=== PATIENT | female | born 1955 | race Caucasian/White ===

== ENCOUNTER 2017-09-13 17:46 | Emergency (ER) | payer OTHER, SELFPAY ==
[2017-09-13 17:47] VITALS: BP 156/81; PULSE 76; RESP 18; TEMP 36.7; O2SAT 99; BMI 19.2
--- NOTE | 2017-09-13 18:01 | EKG12_ITS ---
Test Reason : Blood Pressure : / mmHG Vent. Rate : 075 BPM Atrial Rate : 075 BPM P-R Int : 162 ms QRS Dur : 078 ms QT Int : 386 ms P-R-T Axes : 019 024 044 degrees QTc Int : 431 ms Normal sinus rhythm Normal ECG Confirmed by ADRIAN JACINTO MD ([id number]), manuscript editor JAIME DAVIS ([id number]) on 09/16/2017 3:09:37 PM Referred By: KASEY Confirmed By:ADRIAN JACINTO MD
--- NOTE | 2017-09-13 18:01 | CT_ITS ---
STUDY: CT ABDOMEN AND PELVIS WITH CONTRAST REASON FOR EXAM: Female, 62 years old. Abdominal pain and recent urinary bladder infection. Patient has had a hysterectomy. RADIATION DOSAGE (If Supplied By Facility): CTDIvol = ( 8.71 ) mGy, DLP = ( 523.17 ) mGycm TECHNIQUE: Transaxial images were obtained from the dome of the diaphragm to the symphysis pubis with oral contrast. 100 ml of Isovue 300 contrast was administered. Sagittal and coronal images were reconstructed. Individualized dose optimization techniques were used for this CT. COMPARISON: CT of the abdomen and pelvis dated April 11, 2016 FINDINGS: There is a subpleural nodule in the left lower lobe, unchanged since the previous study. This measures approximately 10 mm in greatest dimension. The visualized portions of the heart are within normal limits. Normal liver. Normal gallbladder and extrahepatic biliary system. Normal spleen. Normal pancreas. Normal bilateral adrenal glands. Normal right kidney. Normal left kidney. There is mild prominence of the renal collecting systems Normal visualized stomach. There is no evidence for dilated bowel, ascites or pneumoperitoneum. Small bowel has a grossly normal appearance. Stool is visible throughout the colon with scattered colonic diverticula. There is non-visualization of the appendix. Abdominal aorta is mildly tortuous. Normal inferior vena cava. Normal retroperitoneum. Normal urinary bladder. There is absence of the uterus consistent with a prior hysterectomy. There is a small umbilical hernia containing fat. The bones appear osteopenic. There is degenerative disc disease at L5-S1. CT/Abdomen/Pelvis WITH Contrast IMPRESSION: No CT evidence of acute intra-abdominal disease. Electronically Signed: Estela San MD at 20:57 EDT , Service support ,
--- NOTE | 2017-09-13 18:02 | ED.VISSUMM ---
- ER Visit Summary Date of Service: 09/13/17 Chief Complaint: Abdominal pain History of Present Illness: The patient is a 62 F presenting with abdominal pain and dysuria. She states this has been ongoing for the past 1-1/2 weeks. She was seen by her primary care physician Dr. Benitez and started on Cipro for a bladder infection. She states the pain seems to be worsening. She has pain after she urinates and urinary frequency. She has chronic low back pain. She has diffuse abdominal pain. History of hysterectomy. Physical Examination: Vitals are stable. Patient is afebrile. Alert no acute distress. HEENT exam is unremarkable. Neck is supple. Lungs are clear and equal bilaterally. Heart is regular rate and rhythm. Abdomen is soft epigastric tenderness, no rebound Extremities are unremarkable. Skin is warm and dry. No focal neurologic deficit. Remainder of exam is unremarkable. Emergency Department Course and Treatment: Patient is given morphine, Zofran IV. CBC, chemistries unremarkable. Liver lipase are normal. Urinalysis is unremarkable. EKG is sinus rate is 75 with no acute ischemic changes. Patient is feeling improved following medications. CT abdomen pelvis shows no acute process, nonvisualization of the appendix. Patient states she has had CT scans in the past that have shown nonvisualization of her appendix. She has no right lower quadrant tenderness on exam. She is advised to watch for worsening signs and symptoms and to return to ED if she worsens. She will follow-up with her primary care physician. She is given a prescription for Pepcid. Disposition: Discharge home Impression: Abdominal pain This note was generated with [employer] dictation software. It may contain incorrect words, spelling, and punctuation that were not noted in review of the chart prior to signing ED Disposition - Plan for ED Patient: Chief Complaint: Complaint Referrals: Anaid Benitez DO [Primary Care Provider] -
--- NOTE | 2017-09-13 18:05 | NURSING ---
NO OLD EKGS
[2017-09-13 18:34] LABS: Bacteria 0 SEEN /hpf (None Seen); Mucous, Urine 0 SEEN /hpf (<or=2+); Red Blood Cells-Urine 0 SEEN /hpf (0-5)
[2017-09-13 18:43] LABS: Color, Urine Straw (Yellow); Glucose, Dipstick Normal (Normal); Ketone-Dipstick Negative (Negative); Leukocyte Esterase-Dipstick 25 /ul (Negative); Nitrite-Dipstick Negative (Negative); Occult Blood-Urine Negative /ul (Negative); Protein-Dipstick Negative (Negative); Urine Bilirubin Dipstick Negative (Negative); Urine Clarity Clear (Clear); Urine Urobilinogen Normal (Normal)
[2017-09-13 18:55] LABS: AST(SGOT) 15 U/L (15-37); Alanine Aminotransfer ALT/SGPT 15 U/L (13-56); Alkaline Phosphatase 60 U/L (45-117); Anion Gap 8 (5-15); BUN 17 mg/dL (7-18); BUN/Creat Ratio 22.1 RATIO (10-20); Bilirubin, Direct 0.08 mg/dL (0.00-0.30); Calcium,Total 8.7 mg/dL (8.5-10.1); Chloride 105 mmol/L (98-107); Creatinine, Serum 0.77 mg/dL (0.55-1.02); EST Glomerular Filtration Rate 80 mL/min (>60); Est Glom Filt Rate - Afr Amer 97 mL/min (>60); Estimated Creatinine Clearance 63.72 ml/min; Globulin 3.1 g/dL (2.2-4.2); Glucose 104 mg/dL (74-106); Lipase 146 U/L (73-393); Protein, Total 7.1 g/dL (6.4-8.2); Sodium Level 141 mmol/L (136-145)
[2017-09-13 18:58] LABS: Squamous Epithelial Cells - UA 0-5 SEEN /hpf (5-10); White Blood Cells 0-5 SEEN /hpf (0-5)
[2017-09-13 19:03] LABS: Absolute Lymphocyte Count 2.16 X10^3/ul (0.83-4.51); Absolute Neutrophil Count 4.8 X10^3/uL (2.0-7.7); Basophil# 0.01 X10^3/uL; Basophil% 0.1 % (0-1); Eosinophil# 0.06 X10^3/uL; Eosinophils% 0.8 % (0-5); Hematocrit 37.8 % (37-47); Hemoglobin 12.4 g/dl (12.0-15.0); Lymphocyte # 2.16 X10^3/ul (4.0); Lymphocyte % 28.3 % (19-41); Mean Corp Hgb Conc 32.8 g/gl (32-36); Mean Corpuscular Hgb 31.6 pg (27.0-32.0); Mean Corpuscular Volume 96.2 fL (81-99); Monocyte# 0.63 X10^3/uL; Monocyte% 8.3 % (0-10); Neutrophil # 4.77 X10^3/uL (2.7-7.7); Neutrophil % 62.5 % (47-70); Platelet Count 165 K/mm3 (150-450); RBC Distribution Width CV 11.9 % (11.6-14.6); RBC Distribution Width SD 42.1 fl (35.1-43.9); Red Blood Count 3.93 M/mm3 (4.2-5.4); White Blood Count 7.6 K/mm3 (4.4-11.0)
[2017-09-13 19:08] LABS: POSITIVE COUNT NO; POSITIVE DIFFERENTIAL NO; POSITIVE MORPHOLOGY NO
[2017-09-13 20:00] VITALS: BP 144/78; PULSE 75; RESP 14; O2SAT 99
--- NOTE | 2017-09-13 21:37 | ED.DEP ---
ED Disposition - Plan for ED Patient: Chief Complaint: Complaint Instructions: ED Abdominal Pain Unkn Cause Prescriptions: Famotidine [Pepcid] 20 mg PO BID #28 tablet Referrals: Anaid Benitez DO [Primary Care Provider] -
[2017-09-13 21:49] VITALS: RESP 14
== END 2017-09-13 21:49 | disposition home or self-care (01) ==
LOC: ED 18:15
PROVIDERS: Emergency Provider Emergency Medicine; Family Provider Internal Medicine; PCP Internal Medicine
DX: R10.9 Unspecified abdominal pain (principal); G89.29 Other chronic pain; M54.5 Low back pain; R30.0 Dysuria; R35.0 Frequency of micturition; Z90.710 Acquired absence of both cervix and uterus
CPT/HCPCS: 74177; 80048; 80076; 81001; 83690; 85025; 93005; 99283; J7040; Q9967; A4216; J2405

== ENCOUNTER → 2018-08-04 09:21 | Outpatient (CLI) | payer OTHER, SELFPAY ==
[2018-08-04 08:42] VITALS: BMI 19.2
[2018-08-06 20:19] LABS: B. henselae IgG Negative titer (Neg:<1:320); B. henselae IgM Negative titer (Neg:<1:100); B. quintana IgG Negative titer (Neg:<1:320)
[2018-08-07 16:55] LABS: B. quintana IgM Negative titer (Neg:<1:100)
== END ==
PROVIDERS: Family Provider Internal Medicine; PCP Internal Medicine; Referring Provider Surgery; Visit Provider Surgery
DX: R59.0 Localized enlarged lymph nodes (principal)
CPT/HCPCS: 36415; 86611

== ENCOUNTER → 2018-08-05 14:57 | Outpatient (CLI) | payer OTHER, SELFPAY ==
[2018-08-04 08:42] VITALS: BMI 19.2
--- NOTE | 2018-08-05 15:01 | US_ITS ---
HISTORY: LUMP ON ANT UPPER RT ARM AND ENLARGED NODE IN AXILLA EXAM/TECHNIQUE: US Upper Extremity, limited, joint or other nonvascular extremity: COMPARISON: None. FINDINGS: # of images incl. paperwork: 35 4 prominent lymph nodes correspond to the palpable abnormalities. A right upper arm lymph node measures 1.2 x 1.3 x 1.0 cm. 3 axillary lymph nodes were measured, 2.1 x 1.5 x 1.1 and 1.9 x 0.7 x 0.9 and 3.4 x 1.3 x 0.9 cm. No lymph node necrosis was evident. The lymph nodes maintain their reniform shape. US/Ext Non Vasc Limited/Soft Tiss IMPRESSION: The palpable abnormalities correspond to mildly prominent lymph nodes. No necrosis. at 0221 Reported and signed by: Castillo Jama MD Electronically Signed: Castillo Jama, at 2:20 EST Tel , Service support ,
== END ==
PROVIDERS: Family Provider Internal Medicine; PCP Internal Medicine; Referring Provider Surgery; Visit Provider Surgery
DX: R59.0 Localized enlarged lymph nodes (principal)
CPT/HCPCS: 76882

== ENCOUNTER → 2018-08-20 11:02 | Outpatient (CLI) | payer OTHER, SELFPAY ==
--- NOTE | 2018-08-20 09:15 | MASS_PTH ---
PATIENT: DUSTIN TRACY LOC: [facility] U#:[id number] AGE/SX: 70/F ROOM: RE08/20/[address]: Dr. Leon Ricardo MD : 1955 BED: DIS: SPEC #: [id number] RECD: 08/20/18 11:00 STATUS: CLOVER SANTI #: [id number] YAIMA: 08/20/18 09:[address]: Leon Ricardo DEPT: SURGICAL PATHOLOGY RECD BY: Adrian Nagel ENTERED: 08/20/18 12:21 SP TYPE: Mass OTHR DR: Dr. Anaid Benitez DO Tissues: Right arm (tissue only) Procedures: Special Stain Group I Surgery Specimen Level IV AFB Stain (control) GMS Stain (control) HEADER OPERATION: Right arm biopsy PRE-OP DIAGNOSIS: Right arm mass TISSUE SUBMITTED: Right arm tissue MICROSCOPIC DIAGNOSIS Right arm tissue, core biopsy: Fragments of fibroadipose and fibroconnective tissue with focal fat necrosis, acute and chronic inflammation, granulation tissue reaction and focal area suggestive of granuloma formation. Negative for malignancy. Special stains for acid fast bacilli and fungi are negative for organisms; matched controls are appropriate. RUBEN:vicki 08/21/18 COMMENT Correlation with clinical findings and appropriate follow up are necessary. Case has been reviewed in consultation with Dr. Sewell who concurs with the above diagnosis. IDC:AM MICROSCOPIC DESCRIPTION Slides are reviewed. GROSS DESCRIPTION Received in fixative is one container labeled with the patient's name and designated right arm mass. The specimen consists of two elongated fragments of rosado soft tissue that in aggregate measure 0.4 x 0.2 x 0.1 cm. The specimen is totally submitted in one cassette. / RUBEN:vicki 08/20/18 TC:3 CPT: 76377, [id number] x2
[2018-08-20 09:28] VITALS: BMI 19.2
== END ==
PROVIDERS: Family Provider Internal Medicine; PCP Internal Medicine; Referring Provider Surgery; Visit Provider Surgery
DX: R22.31 Localized swelling, mass and lump, right upper limb (principal)
CPT/HCPCS: 87070; 87075; 87205; 88305; 88312

== ENCOUNTER → 2018-08-27 10:27 | Outpatient (CLI) | payer OTHER, SELFPAY ==
[2018-08-20 15:06] VITALS: BMI 19.2
--- NOTE | 2018-08-27 10:30 | BI_ITS ---
MAMMOGRAPHY - BILATERAL SCREENING REASON FOR EXAM: Female, 63 years old. Routine annual screening examination. PERTINENT HISTORY: Non-contributory. TECHNIQUE: Digital bilateral breast liya (3D mammographic acquisition) in the CC and MLO projections. 2-D mediolateral oblique (MLO) and craniocaudad (CC) views of both breasts were obtained. CAD: Full Field Digital Mammography with Computer Added Detection was performed. COMPARISON: Comparison is made with the prior examination dated January 06, 2013. FINDINGS: Breast Composition: The breasts are heterogeneously dense, which may obscure small masses. There are no dominant masses or suspicious calcifications. There is a 4.9 mm x 4.4 mm well-defined nodule in the deep mid slightly lateral aspect of the right breast. Correlation with ultrasound is recommended. No other significant abnormalities are identified. BI/SCREENING MAMM (CAD), BILAT IMPRESSION: 4.9 mm x 4.4 mm well-defined nodule in the right breast as described. Correlation with ultrasound is recommended. ASSESSMENT CATEGORY: BIRADS Category 0: Incomplete. Need additional imaging evaluation. A letter regarding these results will be sent to the patient by the facility within 30 days. Approximately 10% of breast cancers are not detected by mammography. A normal mammogram should not delay biopsy of a clinically suspicious abnormality. [id number] Electronically Signed: Kurt Joy, at 12:50 EST , Service support ,
== END ==
PROVIDERS: Family Provider Internal Medicine; PCP Internal Medicine; Referring Provider Nurse Practitioner; Visit Provider Nurse Practitioner
DX: Z12.31 Encounter for screening mammogram for malignant neoplasm of breast (principal)
CPT/HCPCS: 77063; 77067

== ENCOUNTER → 2018-08-28 10:26 | Outpatient (CLI) | payer OTHER, SELFPAY ==
[2018-08-20 15:06] VITALS: BMI 19.2
--- NOTE | 2018-08-28 10:30 | US_ITS ---
STUDY: ULTRASOUND BREAST - RIGHT REASON FOR EXAM: Female, 63 years old. Abnormal screening mammogram. TECHNIQUE: Axial and longitudinal images of the RIGHT breast were performed with a high resolution ultrasound transducer. COMPARISON: Comparison is made with prior mammogram dated August 27, 2018. FINDINGS: RIGHT Breast: The mammographic abnormality corresponds to a 4 mm x 4 mm x 1 mm cyst at the 8:00 position of the breast at 2 cm from the nipple. US/Breast Limited Unilateral IMPRESSION: 4 mm x 4 mm x 1 mm cyst at the 8:00 position of the breast at 2 cm from the nipple. ASSESSMENT CATEGORY: BIRADS Category 2: Benign. A letter regarding these results will be sent to the patient by the facility within 30 days. Electronically Signed: Kurt Joy, at 15:38 EST , Service support ,
== END ==
PROVIDERS: Family Provider Internal Medicine; PCP Internal Medicine; Referring Provider Nurse Practitioner; Visit Provider Nurse Practitioner
DX: R92.8 Other abnormal and inconclusive findings on diagnostic imaging of breast (principal)
CPT/HCPCS: 76642

== ENCOUNTER → 2021-12-10 | Outpatient (CLI) | payer MEDICARE, OTHER, SELFPAY | END | disposition home or self-care (01) | LOC: MFPLAB 14:18 | PROVIDERS: PCP Internal Medicine; Visit Provider Family Medicine | DX: N39.0 Urinary tract infection, site not specified (principal) | CPT/HCPCS: 87086; 87088 ==

== ENCOUNTER → 2022-06-12 | Outpatient (CLI) | payer MEDICARE, OTHER, SELFPAY ==
--- NOTE | 2022-06-12 15:33 | BI_ITS ---
MAMMOGRAPHY - BILATERAL SCREENING REASON FOR EXAM: Female, 67 years old. Routine annual screening examination. PERTINENT HISTORY: Non-contributory. TECHNIQUE: Digital bilateral breast carson (3D mammographic acquisition) in the CC and MLO projections. 2-D mediolateral oblique (MLO) and craniocaudad (CC) views of both breasts were obtained. CAD: Full Field Digital Mammography with Computer Added Detection was performed. COMPARISON: Comparison is made with prior study dated 08/27/2018 and 01/06/2013. FINDINGS: Breast Composition: The breasts are heterogeneously dense, which may obscure small masses. There are no dominant masses or suspicious calcifications. Stable 5 mm well-defined nodule in the deep central slightly lateral aspect of the right breast. This most likely represents a small lymph node. No other significant abnormalities are identified. There has been no significant change since the prior study. BI/SCRN MAMM (CAD)W/CARSON BILAT IMPRESSION: Stable bilateral screening mammogram. Yearly follow-up mammogram recommended. (A) ASSESSMENT CATEGORY: BIRADS Category 2: Benign. A letter regarding these results will be sent to the patient by the facility within 30 days. Approximately 10% of breast cancers are not detected by mammography. A normal mammogram should not delay biopsy of a clinically suspicious abnormality. [id number] Electronically Signed: Kurt Joy MD at 8:18 EST ,
== END | disposition home or self-care (01) ==
LOC: OPBI 15:30
PROVIDERS: PCP Internal Medicine; Referring Provider Family Medicine; Visit Provider Family Medicine
DX: Z12.31 Encounter for screening mammogram for malignant neoplasm of breast (principal); N63.10 Unspecified lump in the right breast, unspecified quadrant
CPT/HCPCS: 77063; 77067

== ENCOUNTER → 2022-06-25 | Outpatient (CLI) | payer MEDICARE, OTHER, SELFPAY ==
[2022-06-25 15:08] LABS: Hemoglobin 12.9 g/dL (12.0-15.0); Mean Corp Hgb Conc 33.1 g/dL (32-36); Mean Corpuscular Hgb 32.4 pg (27.0-32.0); Mean Platelet Vol. 10.5 fl (6.2-12.0); Platelet Count 174 K/mm3 (150-450); RBC Distribution Width SD 43.6 fl (35.1-43.9); Red Blood Count 3.98 M/mm3 (4.2-5.4); White Blood Count 6.2 K/mm3 (4.4-11.0)
[2022-06-25 15:22] LABS: Anion Gap 6 (5-15); BUN 18 mg/dL (7-18); BUN/Creat Ratio 23.4 RATIO (10-20); Calcium,Total 9.2 mg/dL (8.5-10.1); Chloride 105 mmol/L (98-107); Creatinine, Serum 0.77 mg/dL (0.55-1.02); EST Glomerular Filtration Rate 79 mL/min (>60); Est Glom Filt Rate - Afr Amer 96 mL/min (>60); Glucose 101 mg/dL (74-106); Potassium 3.9 mmol/L (3.5-5.1); Sodium Level 140 mmol/L (136-145)
== END | disposition home or self-care (01) ==
LOC: MFPLAB 12:01
PROVIDERS: PCP Internal Medicine; Visit Provider Nurse Practitioner Family
DX: Z00.00 Encounter for general adult medical examination without abnormal findings (principal); R30.0 Dysuria
CPT/HCPCS: 36415; 80048; 85027; 87086; 87088

== ENCOUNTER → 2023-04-09 | Outpatient (CLI) | payer MEDICARE, OTHER, SELFPAY | END | disposition home or self-care (01) | LOC: LABSPEC 10:21 | PROVIDERS: PCP Internal Medicine; Referring Provider Nurse Practitioner Family; Visit Provider Nurse Practitioner Family | DX: R39.15 Urgency of urination (principal) | CPT/HCPCS: 87086 ==

== ENCOUNTER → 2023-04-22 | Outpatient (CLI) | payer MEDICARE, OTHER, SELFPAY ==
[2023-04-22 15:56] LABS: Absolute Lymphocyte Count 1.37 X10^3/uL (0.83-4.51); Absolute Neutrophil Count 4.8 X10^3/uL (2.0-7.7); Basophil# 0.03 X10^3/uL; Basophil% 0.4 % (0-1); Eosinophil# 0.04 X10^3/uL; Eosinophils% 0.6 % (0-5); Hematocrit 38.5 % (37-47); Hemoglobin 12.4 g/dL (12.0-15.0); Lymphocyte # 1.37 X10^3/ul (0.83-4.51); Lymphocyte % 20.5 % (19-41); Mean Corp Hgb Conc 32.2 g/dL (32-36); Mean Corpuscular Volume 96.3 fL (81-99); Mean Platelet Vol. 10.9 fl (6.2-12.0); Monocyte# 0.46 X10^3/uL; Monocyte% 6.9 % (0-10); NRBC Flagged by Analyzer 0 % (0-5); Neutrophil # 4.76 X10^3/uL (2.7-7.7); Neutrophil % 71.5 % (47-70); Platelet Count 190 K/mm3 (150-450); RBC Distribution Width CV 11.2 % (11.6-14.6); RBC Distribution Width SD 39.7 fl (35.1-43.9); White Blood Count 6.7 K/mm3 (4.4-11.0)
[2023-04-22 16:30] LABS: ALB/GLOB Ratio 1.2 RATIO (0.9-2.4); AST(SGOT) 17 U/L (15-37); Alanine Aminotransfer ALT/SGPT 16 U/L (13-56); Albumin, Serum 4.1 g/dL (3.2-5.0); Alkaline Phosphatase 58 U/L (45-117); Amylase 91 U/L (25-115); Anion Gap 5 (5-15); BUN 15 mg/dL (7-18); BUN/Creat Ratio 17.5 RATIO (10-20); CRP < 2.90 mg/L (0.0-3.0); Calcium,Total 9.3 mg/dL (8.5-10.1); Chloride 107 mmol/L (98-107); Creatinine, Serum 0.86 mg/dL (0.55-1.02); EST Glomerular Filtration Rate 70 mL/min (>60); Est Glom Filt Rate - Afr Amer 84 mL/min (>60); GGTP 15 U/L (5-55); Globulin 3.5 g/dL (2.2-4.2); Glucose 108 mg/dL (74-106); Lipase 50 U/L (13-75); Potassium 3.6 mmol/L (3.5-5.1); Protein, Total 7.6 g/dL (6.4-8.2); Sodium Level 141 mmol/L (136-145)
[2023-04-24 16:09] LABS: Anti-Smooth Muscle ABS 4 Units (0-19)
== END | disposition home or self-care (01) ==
LOC: MTLAB 12:47
PROVIDERS: PCP Family Medicine; Referring Provider Family Medicine; Visit Provider Family Medicine
DX: R10.11 Right upper quadrant pain (principal); R74.8 Abnormal levels of other serum enzymes
CPT/HCPCS: 36415; 80053; 82150; 82977; 83516; 83690; 85025; 86140

== ENCOUNTER → 2023-05-09 | Outpatient (CLI) | payer MEDICARE, OTHER, SELFPAY ==
[2023-05-09 15:19] LABS: Absolute Lymphocyte Count 1.15 X10^3/uL (0.83-4.51); Absolute Neutrophil Count 4.4 X10^3/uL (2.0-7.7); Basophil# 0.03 X10^3/uL; Basophil% 0.5 % (0-1); Eosinophil# 0.04 X10^3/uL; Eosinophils% 0.7 % (0-5); Hematocrit 38.7 % (37-47); Hemoglobin 12.4 g/dL (12.0-15.0); Lymphocyte # 1.15 X10^3/ul (0.83-4.51); Lymphocyte % 19.2 % (19-41); Mean Corpuscular Hgb 30.9 pg (27.0-32.0); Mean Corpuscular Volume 96.5 fL (81-99); Mean Platelet Vol. 10.8 fl (6.2-12.0); Monocyte# 0.37 X10^3/uL; Monocyte% 6.2 % (0-10); NRBC Flagged by Analyzer 0 % (0-5); Neutrophil # 4.39 X10^3/uL (2.7-7.7); Neutrophil % 73.2 % (47-70); Platelet Count 169 K/mm3 (150-450); RBC Distribution Width CV 11.4 % (11.6-14.6); RBC Distribution Width SD 40.7 fl (35.1-43.9); Red Blood Count 4.01 M/mm3 (4.2-5.4)
[2023-05-09 15:43] LABS: Amylase 84 U/L (25-115); CRP < 2.90 mg/L (0.0-3.0); Lipase 36 U/L (13-75)
[2023-05-12 15:08] LABS: Endomysial Antibody IgA Negative (Negative); Immunoglobulin A 195 mg/dL (87-352); t-Transglutaminase IgA <2 U/mL (0-3)
== END | disposition home or self-care (01) ==
LOC: MFPLAB 12:08
PROVIDERS: PCP Family Medicine; Visit Provider Family Medicine
DX: R19.7 Diarrhea, unspecified (principal)
CPT/HCPCS: 36415; 82150; 82784; 83516; 83690; 85025; 86140; 86255

== ENCOUNTER → 2023-05-13 | Outpatient (CLI) | payer MEDICARE, OTHER, SELFPAY ==
--- NOTE | 2023-05-13 09:47 | NM_ITS ---
CLINICAL: 68-year-old male with history of right upper quadrant abdominal pain. RADIONUCLIDE HEPATOBILIARY SCINTIGRAPHY COMPARISON: None available FINDINGS: Following the intravenous administration of 5.5 mCi of 99m Tc Mebrofenin, hepatobiliary images reveal: 1. Relatively prompt and homogeneous radiopharmaceutical concentration is noted by a normal sized liver. No parenchymal defects are identified. 2. Gallbladder activity is identified at 10 minutes post radiopharmaceutical administration. 3. Small intestinal tract is observed at 45 minutes following tracer injection. 4. Washout of the radiopharmaceutical by the hepatic parenchyma appears qualitatively normal. 5. There is scintigraphic evidence of pre-CCK duodenal gastric reflux on the 45 minute projection. Cholecystokinin (0.02 ug/kg) was administered intravenously over a 30-minute period. The post CCK gallbladder ejection fraction calculated at 20 minutes following Cholecystokinin administration was noted to be 36.0 % (normal greater than 35%). During 30 minutes of post CCK imaging, there is no scintigraphic evidence of reflux of the radiotracer into the common hepatic duct or refilling of the gallbladder. There is scintigraphic evidence of continued post CCK duodenal gastric reflux. NM/Hepatobilliary Img w/Pharm Int IMPRESSION: 1. A gallbladder ejection fraction calculated to be greater than 35% following the administration of Cholecystokinin makes the probability of functional hepatobiliary disease (gallbladder and/or sphincter of Oddi dyskinesia) and/or organic hepatobiliary disease (chronic acalculous cholecystitis and/or cystic duct syndrome) to be low. (Yahaira Bailey et al, Journal of Nuclear Medicine 32:1695, 1990). 2. There is scintigraphic evidence of pre-post CCK duodenal-gastric reflux. (Tashi et al, Nucl Med Samantha Carli Press pg. 35, 1980). Electronically Signed: Tremayne Liang DO at 22:27 EST ,
== END | disposition home or self-care (01) ==
LOC: NM 09:46
PROVIDERS: PCP Family Medicine; Referring Provider Family Medicine; Visit Provider Family Medicine
DX: R10.11 Right upper quadrant pain (principal)
CPT/HCPCS: 78227; A9537; J2805

== ENCOUNTER → 2023-05-15 | Outpatient (CLI) | payer MEDICARE, OTHER, SELFPAY ==
[2023-05-22 22:06] LABS: Fats, Neutral Normal (.); Fats, Total Normal (.)
[2023-05-27 15:08] LABS: H. PYLORI STOOL AG Negative (Negative); Pancreatic Elastase, Fecal 406 (>200)
== END | disposition home or self-care (01) ==
LOC: LAB.FUTURE 09:20 → LABSPEC 09:20
PROVIDERS: PCP Family Medicine; Visit Provider Family Medicine
DX: R19.7 Diarrhea, unspecified (principal); R10.13 Epigastric pain
CPT/HCPCS: 82653; 82705; 87338

== ENCOUNTER → 2024-10-20 | Outpatient (CLI) | payer MEDICARE, OTHER, SELFPAY ==
--- OUTSIDE RECORDS SUMMARY | 2025-05-11 16:54 | XMS RPT_ITS | CCD ---
Author Organization [facility] CliniSyla Care Team Providers Care Browning Processor Name Role Phone Hollis Choi Unavailable Marycruz Waller Unavailable Sp Resendiz Unavailable Hilary Nascimento Unavailable Fast, Anaid A Unavailable Drew Tapia Unavailable Unavailable delmar Sloan Unavailable Unavailable Franca Fofana Unavailable Unavailable Diane Elder Unavailable Unavailable Unavailable Unavailable HILARY NASCIMENTO Attending Unavailable MARYCRUZ WALLER (FIRE PREVENTION CHIEF) Referring Unavailable Zumbar, Serge Admitting Unavailable Zumbar, Serge Attending Unavailable Fast, Anaid A Primary Care Unavailable Zumbar, Serge Admitting Unavailable Zumbar, Serge Attending Unavailable Fast, Anaid A Primary Care Unavailable Zumbar, Serge Admitting Unavailable Zumbar, Serge Attending Unavailable Fast, Anaid A Primary Care Unavailable Zumbar, Serge Admitting Unavailable Zumbar, Serge Attending Unavailable Fast, Anaid A Primary Care Unavailable Fast, Anaid A Unavailable Unavailable Unavailable Hollis Choi MD Unavailable Marycruz Waller CNP Unavailable Dr. Sp Resendiz Unavailable Hilary Nascimento MD Unavailable Fast DO, Anaid A Unavailable Drew Gutierrez LPN Unavailable Unavailable Unavailable Unavailable Marycruz Waller Unavailable Unavailable Marycruz Waller Unavailable Fast DO, Anaid A Unavailable Dr. Serge Bowie Attending Unavailable Fast, Dr. Anaid Paz Primary Care Unavailable Emmaunel, Dr. Anaid Paz Primary Care Unavailable Dr. Serge Bowie Attending Unavailable Jeromy Tapia Unavailable FABIEN FERNANDEZ Attending Unava ilable JEROMY TAPIA Primary Care Unavailable Willie PURDY, Dr. Montemayor Primary Care Provider [place] FIRE PREVENTION CHIEF-C, Oliver Attending Provider [place] FIRE PREVENTION CHIEF-C, Oliver Referring Provider Mc[facility]orrow FIRE PREVENTION CHIEF, Oliver Referring Unavailable Jeromy Tapia Primary Care Unavailable [place]orrow FIRE PREVENTION CHIEF, Oliver Attending Unavailable McMorrow FIRE PREVENTION CHIEF, Oliver Referring Unavailable Jeromy Tapia Primary Care Unavailable McMorrow FIRE PREVENTION CHIEF, Oliver Attending Unavailable Allergies Allergy Classification Reported Allergen(s) Allergy Type Date of Onset Reaction(s) Facility Penicillins (antibiotic) (2 sources) Penicillins; Translations: [Penicillins] Drug Allergy [facility] Work Phone: Quinolones (antibiotic) (2 sources) Ciprofloxacin; Translations: [ciprofloxacin] Drug Allergy [facility] Work Phone: (20 sources) Penicillins; Translations: [Penicillins] allergy to substance 07-05-19 17 Other [facility] Work Phone: Comment on above: YEAST INFECTIONS (17 sources) Ciprofloxacin; Translations: [ciprofloxacin] Drug Allergy 08-27-19 19 Unknown [facility] (9 sources) Sulfamethoxazole / Trimethoprim; Translations: [Bactrim] Drug Allergy [facility] Work Phone: (7 sources) Penicillin G Drug Allergy 08-27-19 19 Unknown [facility] (1 source) Ciprofloxacin; Translations: [CIPROFLOXACIN HCL] Drug Allergy 04-15-[address] [facility] (1 source) Sulfamethoxazole / Trimethoprim; Translations: [SULFAMETHOXAZOLE-T RIMETHOPRIM] Drug Allergy 04-15-[address] [facility] (1 source) Ciprofloxacin Drug Allergy 08-27-19 19 [facility] (1 source) Penicillin Drug Allergy 08-27-19 19 [facility] Medications Current Medications Medication Drug Class(es) Dates Sig (Normalized) Sig (Original) acetaminophen 325 mg oral tablet (15 sources) Start: 08-04-2018 take 1 tablet by mouth every six hours as needed Acetaminophen (Tylenol) 325 mg tablet Active 325 mg PO EVERY 6 HOURS as needed August 04, 2018 1:00am Acetaminophen 32 5 MG Oral Tablet Quantity: 0 Refills: 0 Ordered: 20-Nov-2020 DO Active Completed/Discontinued Medications Medication Drug Class(es) Dates Sig (Normalized) Sig (Original) acetaminophen 250 mg / ibuprofen 125 mg oral tablet (4 sources) Nonsteroidal Anti-inflammatory Drug Advil Dual Action 125-250 MG Oral Tablet Quantity: 0 Refills: 0 Ordered: 06-Aug-2022 DO Active acyclovir 800 mg oral tablet (5 sources) Herpesvirus Nucleoside Analog DNA Polymerase Inhibitor, Herpes Simplex Virus Nucleoside Analog DNA Polymerase Inhibitor, Herpes Zoster Virus Nucleoside Analog DNA Polymerase Inhibitor Start: 03-02-2010 End: 03-05-2010 take 1 tablet by mouth five times daily ACYCLOVIR, 800MG (Oral Tablet) 1 (one) Tablet 5 times daily for 3 days Refills: 0 Ordered: 02-Mar-2010 Kayley Gomez MD Start : 02-Mar-2010 End : 05-Mar-2010 Inactive azithromycin 250 mg oral tablet (7 sources) Macrolide Antimicrobial Start: 08-04-2018 End: 08-20-2018 take 2-5 tablets by mouth once daily Azithromycin (Zithromax Z-Bib) 250 mg tablet Discontinued 0 PO .COMPLEX 6 August 04, 2018 1:00am August 20, 2018 10:37am take 500 mg today (day 1), then 250 mg for 4 days (days 2-5) PO celecoxib 100 mg oral capsule (1 source) Nonsteroidal Anti-inflammatory Drug Start: 09-17-2022 take 1 capsule by mouth twice daily as needed Celecoxib 100 MG Oral Capsule TAKE 1 CAPSULE TWICE DAILY NEEDED. Quantity: 180 Refills: 0 Ordered: 17-Sep-2022 Serge Bowie MD Start : 17-Sep-2022 Active ciprofloxacin 500 mg oral tablet (12 sources) Quinolone Antimicrobial Start: 06-15-2021 End: 06-20-2021 take 1 tablet by mouth twice daily Ciprofloxacin HCl 500 MG Oral Tablet 1 (one) Tablet bid for 5 days Quantity: 10 {Tablet} Refills: 0 Ordered: 15-Jun-2021 Marycruz Waller Start : 15-Jun-2021 End : 20-Jun-2021 Inactive Start: 09-04-2017 End: 09-11-2017 take 1 tablet by mouth twice daily Cipro 500 MG Oral Tablet 1 (one) Tablet PO BID for 7 days Quantity: 14 {Tablet} Refills: 0 Ordered: 04-Sep-2017 Franca Fofana Start : 04-Sep-2017 End : 11-Sep-2017 Inactive Start: 10-05-2009 End: 10-12-2009 take 1 tablet by mouth twice daily CIPRO, 250MG (Oral Tablet) 1 (one) Tablet bid for 7 days Quantity: 14 {Tablet} Refills: 0 Ordered: 05-Oct-2009 Marycruz Waller Start : 05-Oct-2009 End : 12-Oct-2009 Inactive famotidine 20 mg oral tablet (7 sources) Histamine-2 Receptor Antagonist Start: 09-13-2017 End: 08-04-2018 take 1 tablet by mouth twice daily Famotidine 20 MG tablet Discontinued 20 mg PO TWICE A DAY September 13, 2017 12:00am August 04, 2018 9:44am fluconazole 150 mg oral tablet (5 sources) Azole Antifungal Start: 09-14-2009 DIFLUCAN, 150MG (Oral Tablet) 1 (one) Tablet once then in 2 days if symptoms return for 0 days Quantity: 2 {Tablet} Refills: 0 Ordered: 20-Feb-2010 Start : 14-Sep-2009 Inactive LORazepam 0.5 mg oral tablet (5 sources) Benzodiazepine Start: 01-06-2015 End: 04-09-2016 take 1 tablet by mouth every eight hours as needed Ativan 0.5 MG Oral Tablet 1 (one) Tablet every 8 hours prn panic attack for 0 days Quantity: 20 {Tablet} Refills: 0 Ordered: 09-Apr-2016 Aura Chi RN Start : 06-Jan-2015 End : 09-Apr-2016 Inactive Comments: twenty Comment on above: twenty meloxicam 15 mg oral tablet (2 sources) Nonsteroidal Anti-inflammatory Drug Start: 08-22-2020 take 1 tablet by mouth once daily as needed Meloxicam 15 MG Oral Tablet TAKE 1 TABLET DAILY NEEDED. Quantity: 30 Refills: 2 Ordered: 22-Aug-2020 Serge Bowie MD Start : 22-Aug-2020 Active nitrofurantoin, macrocrystals 25 mg / nitrofurantoin, monohydrate 75 mg oral capsule (5 sources) Nitrofuran Antibacterial Start: 02-20-2010 End: 02-23-2010 take 1 capsule by mouth twice daily MACROBID, 100MG (Oral Capsule) 1 (one) Capsule bid for 3 days Quantity: 6 {Capsule} Refills: 0 Ordered: 23-Feb-2010 Marycruz Waller Start : 20-Feb-2010 End : 23-Feb-2010 Inactive promethazine hydrochloride 12.5 mg oral tablet (5 sources) Phenothiazine Start: 04-09-2016 End: 04-10-2016 take 1 tablet by mouth once Promethazine HCl 12.5 MG Oral Tablet 1 (one) Tablet once for 1 days Quantity: 1 {Tablet} Refills: 0 Ordered: 09-Apr-2016 Hollis Choi MD Start : 09-Apr-2016 End : 10-Apr-2016 Inactive sertraline 50 mg oral tablet (5 sources) Serotonin Reuptake Inhibitor Start: 01-06-2015 End: 04-09-2016 take 0.5-1 tablets by mouth once daily Zoloft 50 MG Oral Tablet 1/2-1 Tablet daily for 0 days Quantity: 30 {Tablet} Refills: 0 Ordered: 09-Apr-2016 Aura Chi RN Start : 06-Jan-2015 End : 09-Apr-2016 Inactive sulfamethoxazole 800 mg / trimethoprim 160 mg oral tablet (2 sources) Dihydrofolate Reductase Inhibitor Antibacterial, Sulfonamide Antimicrobial Start: 06-18-2021 End: 06-25-2021 take 1 tablet by mouth twice daily Bactrim DS 800-160 MG Oral Tablet 1 (one) Tablet bid for 7 days Quantity: 14 {Tablet} Refills: 0 Ordered: 18-Jun-2021 Marycruz Waller Start : 18-Jun-2021 End : 25-Jun-2021 Inactive NEGATED: Highlighted row has not occurred!drug or medication (3 sources) No Known Historical Medications NEGATED: Highlighted row has not occurred!No Known Historical Medications (1 source) No Known Historical Medications Problems Active Problems Problem Classification Problem Date Documented Date Episodic/Chronic Abdominal pain (20 sources) Flank pain; Translations: [Abdominal discomfort] 04-09-2016 Episodic Comment on above: right flank CT scan abdomen and pelvis with PO and IV UA negativeLabsHas nausea with contarst so given the option of promethazine 12.5 mg , 1/2 pill but does not want to take it because it makes her drowsy.Right lower quadrant abdominla painX 1 week, intermittent Abdominla cramps: lower abdominla X 2 days contiousHysterectomy in 82, still have ovaries.Had nausea and diarhea, no vomiting, dry heave.DiarheaX 1 day, , 1 episode, not soild, no blood in stool, no black stool.Normally have BM every dayAppetite: okWhen get panic attack has diarhea and Has urine frequency Q3 hour, drink lot of waterDenies burning, leakage, urgency.Still has GB and appendix. Anxiety disorders (6 sources) Acute stress disorder; Translations: [Stress reaction] 09-04-2017 Chronic Comment on above: pt with colo n cacner and dealignwith hard time with this and anxiety attacks. will try ativan prn and start zoloft worry about side effects tell what to expect. see in follow up Genitourinary symptoms and ill-defined conditions (20 sources) Urinary symptoms ; Translations: [Dysuria] Onset: 5 Resolved: 3 09-04-2017 Episodic Comment on above: was on macrobid Inflammatory diseases of female pelvic organs (7 sources) Other inflammatory disease of cervix, vagina and vulva; Translations: [DISEASE INFLAMMATORY CERVIX/VAGINA/VULVA NEC] 09-04-2017 Episodic Lymphadenitis (7 sources) Lymphadenopathy; Translations: [Generalized enlarged lymph nodes] 08-04-2018 Episodic Menopausal disorders (3 sources) Vaginal dryness; Translations: [Vaginal dryness, menopausal] 06-15-2021 Chronic Nonmalignant breast conditions (5 sources) Solitary cyst of unspecified breast; Translations: [Benign cyst of breast] 09-02-2018 Episodic Other circulatory disease (4 sources) Easy bruising Episodic Other connective tissue disease (12 sources) Muscle pain; Translations: [Myalgia and myositis, unspecified] Episodic Other connective tissue disease (3 sources) Spasm; Translations: [Spasm of muscle] Episodic Other hereditary and degenerative nervous system conditions (3 sources) Isolated cervical dystonia; 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 Other liver diseases (2 sources) Abnormal levels of other serum enzymes; Translations: [Abnormal levels of other serum enzymes] Onset: 3 Episodic Other nutritional; endocrine; and metabolic disorders (7 sources) Body mass index less than 20; Translations: [BMI less than 19,adult] 09-04-2017 Episodic Other screening for suspected conditions (not mental disorders or infectious disease) (13 sources) Breast neoplasm screening status; Translations: [Patient encounter status] 09-04-2017 Episodic Other skin disorders (6 sources) Other symptoms involving skin and integumentary tissues; Translations: [Easy bruising] 09-04-2017 Episodic Residual codes; unclassified (6 sources) Family history of stroke (cerebrovascular); Translations: [Family history of stroke] 09-04-2017 Episodic Residual codes; unclassified (4 sources) Family history of stroke Episodi c Residual codes; unclassified (4 sources) Non-smoker; Translations: [Non-smoker] 06-15-2021 Episodic Spondylosis; intervertebral disc disorders; other back problems (20 sources) Cervical radiculopathy; 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] Onset: 2 09-04-2017 Chronic Spondylosis; intervertebral disc disorders; other back problems (12 sources) Neck pain; Translations: [Cervical radiculopathy] 09-04-2017 Episodic Urinary tract infections (9 sources) Urinary tract infectious disease; Translations: [Urinary tract infection in female] Onset: 3 09-04-2017 Episodic Viral infection (7 sources) Herpes zoster; Translations: [Shingles] Resolved: 3 08-27-2018 Episodic Comment on above: may be getting posth erpetic neuralgia will try lidocaine swish and spit, more acyclovir not better by next week with pain then lyrica Past or Other Problems Problem Classification Problem Date Documented Da te Episodic/Chronic Other connective tissue disease (1 source) Myalgia, other site; Translations: [Myalgia, other site] Onset: 09-10-2021 Episodic Unclassified (5 sources) BMI less than 19,adult Unclassified (4 sources) Other Inflammatory Diseases of Cervix, Vagina or Vulva (616.8) Unclassified (20 sources) Unclassified (4 sources) DISEASE INFLAMMATORY CERVIX/VAGINA/VULVA NEC (616.89) Unclassified (8 sources) Shingles (053.9) Unclassified (5 sources) Deliveries (Parity); Translations: [Deliveries (Parity)] 09-04-2017 Comment on above: 2 Unclassified (6 sources) Screening status; Translations: [Encounter for screening colonoscopy] 09-04-2017 Unclassified (4 sources) SCREENING FOR BREAST CANCER (V76.10) Unclassified (8 sources) Non-smoker; Translations: [Non-smoker] 09-04-2017 Unclassified (5 sources) Pregnancies (); Translations: [Pregnancies ()] 09-04-2017 Comment on above: 2 Unclassified (4 sources) Stress Reaction (308.4) Unclassified (12 sources) Patient encounter status; Translations: [Screening mammogram, encounter for] 08-27-2018 Unclassified (5 sources) Unspecified Diagnosis 09-04-2017 Unclassified (8 sources) Urine frequency Unclassified (3 sources) Benign cyst of breast Unclassified (1 source) Vaginal dryness, menopausal Urinary tract infections (13 sources) Urinary tract infections Results Test Name Value Interpretation Reference Range Facility Urine Cultureon 11-24-2024 [facility] Mixed Gram Positive Organisms [place] Count 11,000-25,000 [facility] Mixed contaminants. Submit a new specimen if indicated. Normal [facility] Comment on above: Performed By: #### M 100.2200 #### [facility] [address] [place], [place], [address] [facility] Decub and/or Erecton 11-23-2024 Abd Inc Decub and/or Erect [facility] [address] [place], [place] [address] [employer] Inc Decub and/or Erect MR#: [id number] Acct: [id number] Name: DUSTIN TRACY Rep #: [id number] : 1955 F 69 From: Leon Sauer MD PCP: Dr. Jeromy Tapia MD Status: REG CLI Study: Abd Inc Decub and/or Erect Date of Exam: 11/23 Exam# [id number] Ordering Dr: Oliver Gama NP FIRE PREVENTION CHIEF -C PROCEDURE: ABD INC DECUB AND/OR ERECT 11/23/2024 REASON FOR EXAM: URETHRITIS TECHNIQUE: Two views, upright and supine COMPARISON: None available FINDINGS: There are 5 ovoid calcific densities mostly at the pelvis and 1 at the distal transverse colon area which each related to areas of overlying fecal material and may be within bowel. No convincing evidence of renal calcification/stone. No gaseous distention of bowel. No evidence of free air. Visualized lung bases appear clear. Mild rightward curvature of the lumbar spine. RAD/[employer] Decub and/or Erect IMPRESSION: Findings as above. Reading Location: [id number] CC: Oliver LARA McM; Dr. Jeromy Tapai MD Ticket Printer: Signed Normal [facility] Urine cultureOrdered By: Shar Gama on 11-23-2024 Bacteria identified Cx Nom (U) Positive Abnormal [facility] Urine Cultureon 10-21-2024 [facility] Below infection leve l. Alpha hemolytic organism [place] Count <1000 Normal [facility] Comment on above: Performed By: #### M 100.2200 #### [facility] [address] [place], [address] Absolute lymphocyte countOrd ered By: Jeromy Tapia on 05-09-2023 Lymphocytes Auto (Unsp spec) [#/Vol] 1.15 10*3/uL 0.83-4.51 [facility] Basophil percentageOrdered B y: Jeromy Tapia on 05-09-2023 Amylase [Catalytic activity/Vol] 84 U/L 25-115 [facility] Basophils/100 WBC (Bld) 0.5 % 0-1 [facility] Eosinophils/100 WBC (Bld) 0.7 % 0-5 [facility] Neutrophils (Bld) [#/Vol] 4.4 10*3/uL 2.0-7.7 [facility] Neutrophils/100 WBC (Bld) 73.2 % 47-70 [facility] WBC (Bld) [#/Vol] 6.0 10*3/uL 4.4-11.0 [facility] Blood erythrocytes count (nu mber/volume)Ordered By: Jeromy Tapia on 05-09-2023 RBC (Bld) [#/Vol] 4.01 10*6/uL 4.2-5.4 [facility] Blood hemoglobin measurement (mass/volume)Ordered By: Jeromy Tapia on 05-09-2023 Hemoglobin (Bld) [Mass/Vol] 12.4 g/dL 12.0-15.0 [facility] Blood lymphocytes/100 leukoc ytesOrdered By: Jeromy Tapia on 05-09-2023 Lymphocytes/100 WBC (Bld) 19.2 % 19-41 [facility] Blood monocytes/100 leukocyt esOrdered By: Jeromy Tapia on 05-09-2023 Monocytes/100 WBC (Bld) 6.2 % 0-10 [facility] Blood platelet mean volumeOr dered By: Jeromy Tapia on 05-09-2023 Platelet mean volume (Bld) [Entitic vol] 10.8 fL 6.2-12.0 [facility] Determination of erythrocyte mean corpuscular volume (MCV)Ordered By: Jeromy Tapia on 05-09-2023 MCV (RBC) [Entitic vol] 96.5 fL 81-99 [facility] Hematocrit Auto (Bld) [Volum e fraction]Ordered By: Jeromy Tapia on 05-09-2023 Hematocrit (Bld) [Volume fraction] 38.7 % 37-47 [facility] - Chemistry and C hemistry - challengeOrdered By: Jeromy Tapia on 05-09-2023 Lipase [Catalytic activity/Vol] 36 U/L 13-75 [facility] Comment on above: Please note:LIPASE r evised reference range effective 22. New Lipase methodology. Expected to produce lower values than the previous assay method. NEW Reference Range: 13 - 75 U/L Laboratory - Hematology and Cell countsOrdered By: Jeromy Tapia on 05-09-2023 Erythrocyte distribution width (RBC) [Entitic vol] 40.7 fL 35.1-43.9 [facility] Erythrocyte distribution width (RBC) [Ratio] 11.4 % 11.6-14.6 [facility] Immature granulocytes/100 WBC (Bld) 0.200 % 0.0-0.9 [facility] Comment on above: IG% - Immature Granu locytes (promyelocytes, myelocytes and metamyelocytes) > 1% indicates that a LEFT SHIFT is Present. MCH (RBC) [Entitic mass] 30.9 pg 27.0-32.0 [facility] Nucleated RBC/100 WBC (Bld) [Ratio] 0 % 0-5 [facility] MCHC Auto (RBC) [Mass/Vol]Or dered By: Jeromy Tapia on 05-09-2023 MCHC (RBC) [Mass/Vol] 32.0 g/dL 32-36 [facility] No Panel InformationOrdered By: Jeromy Tapia on 05-09-2023 Endomysial IgA Antibody Negative Negative [facility] Platelets bldOrdered By: Lynne Tapia on 05-09-2023 Platelets (Bld) [#/Vol] 169 10*3/uL 150-450 [facility] Serum IgA measurement (units /volume)Ordered By: Jeromy Tapia on 05-09-2023 IgA Qn (S) 195 mg/dL 87-352 [facility] Comment on above: Performed at: [address] Director: Sp Álvarez PhD, Phone: [phone] Serum or plasma C reactive p rotein measurement (mass/volume)Ordered By: Jeromy Tapia on 05-09-2023 CRP [Mass/Vol] mg/L 0.0-3.0 [facility] Comment on above: C-Reactive Protein ( CRP) provides useful information for thediagnosis, therapy and monitoring of inflammatory processesand associated diseases. For the evaluation of Relative Riskfor Cardiovascular Disease, a High Sensitivity CRP (HSCRP)should be ordered. Serum tissue transglutaminas e IgA antibody assay (units/volume)Ordered By: Jeromy Tapia on 05-09-2023 tTG IgA Qn (S) <2 U/mL 0-3 [facility] Comment on above: Negative 0 - 3 Weak Positive 4 - 10 Positive >10 Tissue Transglutaminase (tTG) has been identified as the endomysial antigen. Studies have demonstr- ated that endomysial IgA antibodies have over 99% specificity for gluten sensitive enteropathy. Absolute lymphocyte countOrd ered By: Jeromy Tapia on 04-22-2023 Lymphocytes Auto (Unsp spec) [#/Vol] 1.37 10*3/uL 0.83-4.51 [facility] Basophil percentageOrdered B y: Jeromy Tapia on 04-22-2023 Amylase [Catalytic activity/Vol] 91 U/L 25-115 [facility] Basophils/100 WBC (Bld) 0.4 % 0-1 [facility] Bilirubin [Mass/Vol] 0.50 mg/dL 0.20-1.00 [facility] Comment on above: For patients on eltr ombopag therapy, use of Dimension [place] TBIL is not recommended. Chloride [Moles/Vol] 107 mmol/L 98-107 [facility] Eosinophils/100 WBC (Bld) 0.6 % 0-5 [facility] Glucose [Mass/Vol] 108 mg/dL 74-106 [facility] Comment on above: Fasting Glucose resu lt from 100 to 125 mg/dL suggests IMPAIRED HOMEOSTASIS per A.D.A. criteria. Neutrophils (Bld) [#/Vol] 4.8 10*3/uL 2.0-7.7 [facility] Neutrophils/100 WBC (Bld) 71.5 % 47-70 [facility] Potassium [Moles/Vol] 3.6 mmol/L 3.5-5.1 [facility] Protein [Mass/Vol] 7.6 g/dL 6.4-8.2 [facility] Sodium [Moles/Vol] 141 mmol/L 136-145 [facility] WBC (Bld) [#/Vol] 6.7 10*3/uL 4.4-11.0 [facility] Blood erythrocytes count (nu mber/volume)Ordered By: Jeromy Tapia on 04-22-2023 RBC (Bld) [#/Vol] 4.00 10*6/uL 4.2-5.4 [facility] Blood hemoglobin measurement (mass/volume)Ordered By: Jeromy Tapia on 04-22-2023 Hemoglobin (Bld) [Mass/Vol] 12.4 g/dL 12.0-15.0 [facility] Blood lymphocytes/100 leukoc ytesOrdered By: Jeromy Tapia on 04-22-2023 Lymphocytes/100 WBC (Bld) 20.5 % 19-41 [facility] Blood monocytes/100 leukocyt esOrdered By: Jeromy Tapia on 04-22-2023 Monocytes/100 WBC (Bld) 6.9 % 0-10 [facility] Blood platelet mean volumeOr dered By: Jeromy Tapia on 04-22-2023 Platelet mean volume (Bld) [Entitic vol] 10.9 fL 6.2-12.0 [facility] Determination of erythrocyte mean corpuscular volume (MCV)Ordered By: Jeromy Tapia on 04-22-2023 MCV (RBC) [Entitic vol] 96.3 fL 81-99 [facility] Hematocrit Auto (Bld) [Volum e fraction]Ordered By: Jeromy Tapia on 04-22-2023 Hematocrit (Bld) [Volume fraction] 38.5 % 37-47 [facility] - Chemistry and C hemistry - challengeOrdered By: Jeromy Tapia on 04-22-2023 ALP [Catalytic activity/Vol] 58 U/L 45-117 [facility] ALT [Catalytic activity/Vol] 16 U/L 13-56 [facility] Amylase [Catalytic activity/Vol] 15 U/L 5-55 [facility] CO2 [Moles/Vol] 29.0 mmol/L 21.0-32.0 [facility] Globulin (S) [Mass/Vol] 3.5 g/dL 2.2-4.2 [facility] Lipase [Catalytic activity/Vol] 50 U/L 13-75 [facility] Comment on above: Please note:LIPASE r evised reference range effective 22. New Lipase methodology. Expected to produce lower values than the previous assay method. NEW Reference Range: 13 - 75 U/L Urea nitrogen/Creatinine [Mass ratio] 17.5 mg/mg 10-20 [facility] - Hematology and Cell countsOrdered By: Jeromy Tapia on 04-22-2023 Erythrocyte distribution width (RBC) [Entitic vol] 39.7 fL 35.1-43.9 [facility] Erythrocyte distribution width (RBC) [Ratio] 11.2 % 11.6-14.6 [facility] Immature granulocytes/100 WBC (Bld) 0.100 % 0.0-0.9 [facility] Comment on above: IG% - Immature Granu locytes (promyelocytes, myelocytes and metamyelocytes) > 1% indicates that a LEFT SHIFT is Present. MCH (RBC) [Entitic mass] 31.0 pg 27.0-32.0 [facility] Nucleated RBC/100 WBC (Bld) [Ratio] 0 % 0-5 [facility] [Mass/Vol]Or dered By: Jeromy Tapia on 04-22-2023 MCHC (RBC) [Mass/Vol] 32.2 g/dL 32-36 [facility] No Panel InformationOrdered By: Jeromy Tapia on 04-22-2023 Estimated GFR (MDRD) Amer 84 mL/min >60 [facility] Comment on above: GFR Calc Estimated GFR (MDRD) Non-Af Amer 70 mL/min >60 [facility] Comment on above: Non- GFR Calc Platelets bldOrdered By: Lynne Tapia on 04-22-2023 Platelets (Bld) [#/Vol] 190 10*3/uL 150-450 [facility] Serum or plasma C reactive p rotein measurement (mass/volume)Ordered By: Jeromy Tapia on 04-22-2023 CRP [Mass/Vol] mg/L 0.0-3.0 [facility] Comment on above: C-Reactive Protein ( CRP) provides useful information for thediagnosis, therapy and monitoring of inflammatory processesand associated diseases. For the evaluation of Relative Riskfor Cardiovascular Disease, a High Sensitivity CRP (HSCRP)should be ordered. Serum or plasma actin IgG an tibody assay (units/volume)Ordered By: Jeromy Tapia on 04-22-2023 Actin IgG Qn 4 Units 0-19 [facility] Comment on above: Negative 0 - 19 Weak positive 20 - 30 Moderate to strong positive >30 Actin Antibodies are found in 52-85% of patients with autoimmune hepatitis or chronic active hepatitis and in 22% of patients with primary biliary cirrhosis.Performed at: - [address] [id number] Director: Sp Álvarez PhD, Phone: [phone] Serum or plasma albumin che[place] urement (mass/volume)Ordered By: Jeromy Tapia on 04-22-2023 Albumin [Mass/Vol] 4.1 g/dL 3.2-5.0 [facility] Serum or plasma albumin/glob ulin mass ratioOrdered By: Jeromy Tapia on 04-22-2023 Albumin/Globulin [Mass ratio] 1.2 {ratio} 0.9-2.4 [facility] Serum or plasma calcium che[place] urement (mass/volume)Ordered By: Jeromy Tapia on 04-22-2023 Calcium [Mass/Vol] 9.3 mg/dL 8.5-10.1 [facility] Serum or plasma creatinine m easurement (mass/volume)Ordered By: Jeromy Tapia on 04-22-2023 Creatinine [Mass/Vol] 0.86 mg/dL 0.55-1.02 [facility] Comment on above: The validity of the calculated GFR & GFRAA in patients over 70 years has not been determined. Clinical correlation is essential. Serum or plasma urea nitroge n measurement (mass/volume)Ordered By: Jeromy Tapia on 04-22-2023 Urea nitrogen [Mass/Vol] 15 mg/dL 7-18 [facility] Thin prep Papanicolaou smear with manual screeningOrdered By: Jeromy Tapia on 04-22-2023 Thin prep Papanicolaou smear with manual screening 17 U/L 15-37 [facility] Thin prep Papanicolaou smear with manual screening 5 5-[address] [facility] [address] ABDOMEN PELVIS WITH IV CO NTRAST ONLYon 04-15-2023 CT ABDOMEN PELVIS WITH IV CONTRAST ONLY EXAM: CT ABDOMEN PELVIS WITH IV CONTRAST ONLY DATE: 04/15/2023 8:22 am TECHNIQUE: Axial CT images were obtained through the abdomen and pelvis following intravenous contrast administration. Multiplanar reformatted images also created. IOPAMIDOL 370 MG IODINE/ML (76 %) INTRAVENOUS SOLUTION - 75 mL, Dose reduction techniques were achieved by using automated exposure control and/or adjustment of mA and/or kV according to patient size and/or use of iterative reconstruction technique. HISTORY: ORDERING SYSTEM PROVIDED HISTORY: flank pain, TECHNOLOGIST PROVIDED HISTORY: Illness/Other Reason for exam: right sided flank pain with painful urination x1 week and worsening Encounter Type: Initial Additional signs and symptoms: na ORDERING SYSTEM PROVIDED DIAGNOSIS CODES: COMPARISON: None FINDINGS: Lower chest: There is some linear basilar scarring or subsegmental atelectasis. Liver: The liver is homogeneous with normal contours and normal size. Gallbladder: The gallbladder is unremarkable. There is no intra or extrahepatic biliary dilatation. Pancreas: The pancreas is homogeneous without evidence for mass lesion or inflammation. Spleen: The spleen is unremarkable without evidence for mass lesion. Adrenals: The adrenal glands are unremarkable Kidneys and bladder: The kidneys are unremarkable with no evidence for mass lesion, hydronephrosis or inflammation.There are small bilateral extrarenal pelves. There is no urinary tract calculus.The ureters demonstrate normal caliber.The urinary bladder is unremarkable. GI tract: Stomach is unremarkable.Visualized small bowel is unremarkable without evidence for obstruction or active inflammation. There is no evidence for acute appendicitis. The visualized portion of the large bowel is unremarkable. Reproductive: The uterus has been removed. There is no adnexal mass. Lymph nodes: No retroperitoneal or abdominal lymphadenopathy. Vascular: The aorta demonstrates normal caliber without aneurysm or dissection.The major aorta branch vessels are patent.There are serpiginous enhancing venous structures in the left adnexa ( Peritoneum: No free intraperitoneal air or fluid. No acute inflammation. Abdominal wall and Skeletal: Unremarkable without acute abnormality. IMPRESSION: 1. There is no urinary tract calculus or obstructive uropathy. 2. There is no acute inflammatory process, bowel obstruction, or mass lesion. 3. The appendix is not seen but there are no findings to suggest acute appendicitis. 4. There are prominent enhancing veins in the left adnexa which can be seen with pelvic venous congestion. Workstation ID: [id number] Dictated by: SHELLEY EDWARDS on FriApr 15, 2023 9:04:20 AM EDT Transcribed by: SHELLEY EDWARDS on FriApr 15, 2023 9:04:20 AM EDT Finalized by: SHELLEY EDWARDS on FriApr 15, 2023 9:04:20 AM EDT [facility] Comment on above: Order Comment: Injur y/Trauma or Illness?:Illness/Other How long have you had these symptoms (acute/chronic)?:Acute Reason for exam?:right sided flank pain with painful urination x1 week and worsening Type of Exam?:Initial Additional signs and symptoms?:na Culture, urineOrdered By: Dee Dee Artis on 04-09-2023 Bacteria identified Cx Nom (U) Culture exhibits no growth. [facility] Bacteria identified Cx Nom (U) Culture exhibits no growth. 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 Thus far she has not responded to in office injections, medial branch block, therapy, or ibuprofen. She has failed 6 weeks of conservative management. She has had severe neck pain for well over 3 months. We will have her stop the Advil and I will try her on Celebrex since she has had some success with that in the distant past. The other option would be since she does have some radicular features now we could proceed with a C6-7 epidural steroid injection. We discussed the pros and cons of this and she voiced understanding. We will give the Celebrex a few months and see how she does. I will see her for follow-up in 8 weeks or sooner if needed. I advised her with regard to some home exercises in the interim. Chief Complaint FUV BOTOX for migraines on 08-12-22 reports she does not have any relief and she rolled her head to her chest she felt like she was going to get sick and pass out. Today she reports having the same pain in bilat sides of her neck radiating out to her bilat shoulders rates 10/10 describe as squeezing like pain. She has been using her HEP stretching and ice intermittently she takes Advil but has backed off a little as it is not helping. This is a 67-year-old female here for a follow-up appointment for chief complaint of neck, shoulder, and arm pain. At her last visit she underwent a set of Botox injections. She has not noticed any significant relief. She actually thinks she felt worse the first couple of weeks afterward. She is now back to baseline. She reports the pain will start in the neck and radiate down into both shoulders and both shoulder blades. The right side might be a bit worse. She has tried Advil which has not helped. She denies additional neurologic symptoms or issues with bladder or bowel control. The patient's past medical, social, and family history along with medications and allergies are available and were reviewed. Adult Risk Screening Living Will. Living Will: No living will on file. Healthcare POA: No healthcare proxy on file. Domestic Violence Screen: Does not feel threatened or abused physically, emotionally or sexually. Do you feel UNSAFE? The patient feels safe in the home. Depression/Suicide Screening: She does not have a risk of suicide. She has not had thoughts of harming others. Reference Documentation See scanned note Oswestry Disability Index evaluation tool completed by patient . History of Present Illness On a scale of 0 to 10, the patient rates the pain at 10. Pain Location: Neck Pain and bilat sides. Pain Quality: squeezing. Pain Radiation: out to bilat shoulders a little. Sensory/ Motor: denies. Timing/Duration: Constant and > 12 weeks duration. Controlled Substance: I have personally reviewed the [place]AR[place] report for DUSTIN TRACY. I have considered the risks of abuse, dependence, addiction and diversion. Exacerbating Factors: motion and lifting. Alleviating Factors: Cold Therapy, Other: ___. Goals for Pain Management: Oswestry Disability Index evaluation tool completed by patient score 24. Review of Systems 13 systems all normal except noted in HP. 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) Surgical History History of Colonoscopy History of Hysterectomy History of Medial branch block Managed By: Serge Bowie (Pain Medicine) Bilat C3-C5 MBB Social History Does not have living will Feels safe at home Never a smoker No alcohol use No illicit drug use Allergies Bactrim Allergy; Recorded By: Geri Scales; 09/10/2021 8:29:16 AM diarrhea, vomiting ciprofloxacin Recorded By: Judit Castellanos; 06/29/2019 8:18:06 AM Penicillins Recorded By: Judit Castellanos; 06/29/2019 8:18:06 AM Current Meds Medication NameInstruction Advil Dual Action 125-250 MG Oral Tablet Vitals Vital Signs Recorded: [id number] 08:05AM Heart Rate71 Zpwuaufiyyv81 Mjytwtdo184 Rwlawrnry63 Jjdpso086 lb BMI Hzgbpvtkms63.24 kg/m2 BSA Calculated1.57 Physical Exam Constitutional: no acute distress, well appearing and well nourished. Patient appears stated age. Eyes: conjunctiva anicteric and eye lids are without obvious rash or drooping. Pupils are symmetric Ears, Nose, Mouth, and Throat: external ears and nose appear to be without deformity or rash. No lesions or masses noted. Hearing is grossly intact Head and Face: examination of the head and face revealed no abnormalitie (more content not included)... [facility])on 08-12-2022 Established Visit (Pain Medicine) Diagnoses/Problems Cervical dystonia (333.83) (G24.3) Muscle spasm (728.85) (M62.838) Patient Discussion/Summary I discussed with the patient the likely etiology of her symptoms, as well as potential treatment options I addressed options with her. Since she has had over a year of significant neck pain with associated spasm and dystonia that has not responded adequately to NSAIDs or therapy and she cannot tolerate muscle relaxants we will proceed with a set of Botox injections today. I went over the pros and cons of this plan and she was in agreement with it. I will see her for follow-up in 4 to 6 weeks for a repeat evaluation. Procedure: Botox injections into the neck muscles Diagnosis: Cervical dystonia/muscle spasm Solution: 100 units of Botox reconstituted in 5 mL of normal saline Anesthesia: Local Complications: None After informed consent was obtained the patient was placed in the seated position. The area in question was prepped in sterile fashion. The sites were identified and after the region was prepped in sterile fashion, a 27-gauge needle was inserted into the skin and advanced into the belly of each muscle. Aspiration was negative. The Botox solution was injected at each site. The needle was removed. Bleeding was nil. The patient tolerated the procedure well. A total of 100 units of Botox was injected as follows: 15 units in the left cervical paraspinal musculature in 2 divided doses 20 units in the right cervical paraspinal musculature in 2 divided doses 20 units in the left trapezius muscle in 2 divided doses 35 units in the right trapezius muscle in 3 divided doses 10 units in the right scalene Chief Complaint Here for Botox 100 units today reports bilat side of neck describes as cramping, burning, gripping like pain rates 10/10. This is a 67-year-old female here for chief complaint of neck pain. She is here today for Botox injections. She denies new neurologic symptoms or issues with bladder or bowel control. She reports the pain is severe and limits her function and sleep. The patient's past medical, social, and family history along with medications and allergies are available and were reviewed. Adult Risk Screening Living Will. Living Will: No living will on file. Healthcare POA: No healthcare proxy on file. Domestic Violence Screen: Does not feel threatened or abused physically, emotionally or sexually. Do you feel UNSAFE? The patient feels safe in the home. Depression/Suicide Screening: She does not have a risk of suicide. She has not had thoughts of harming others. Reference Documentation See scanned note Oswestry Disability Index evaluation tool completed by patient . History of Present Illness On a scale of 0 to 10, the patient rates the pain at 10. Pain Location: Neck Pain and bilat sides. Pain Quality: Burning, Cramping and gripping. Timing/Duration: Constant and > 12 weeks duration. Exacerbating Factors: motion and lifting. Alleviating Factors: None. Goals for Pain Management: Oswestry Disability Index evaluation tool completed by patient 29. Patient Education:1 Time out was performed in pts room before botox injection bárbara well no complaints or questions1 . 1 Amended By: Mirlande Patel; Aug 12 2022 3:19 PM ESTReview of Systems 13 systems all normal except noted in HP. 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) Surgical History History of Colonoscopy History of Hysterectomy History of Medial branch block Managed By: Serge Bowie (Pain Medicine) Bilat C3-C5 MBB Social History Does not have living will Feels safe at home Never a smoker No alcohol use No illicit drug use Allergies Bactrim Allergy; Recorded By: Geri Scales; 09/10/2021 8:29:16 AM diarrhea, vomiting ciprofloxacin Recorded By: Judit Castellanos; 06/29/2019 8:18:06 AM Penicillins Recorded By: Judit Castellanos; 06/29/2019 8:18:06 AM Current Meds Medication NameInstruction Advil Dual Action 125-250 MG Oral Tablet Vitals Vital Signs Recorded: [id number] 02:22PMRecorded: [id number] 01:41PM Heart Kwkt0199 Ayffbangnzq9328 Ffgidunw590798 Qyejxizmn4794 Axoxmq399 lb BMI Exjlwdrzkr91.92 kg/m2 BSA Calculated1.56 Physical Exam Constitutional: no acute distress, well appearing and well nourished. Patient appears stated age. Eyes: conjunctiva anicteric and eye lids are without obvious rash or drooping. Pupils are symmetric Ears, Nose, Mouth, and Throat: external ears and nose appear to be without deformity or rash. No lesions or masses noted. Hearing is grossly intact Head and Face: examination of the head and face revealed no abnormalities Respiratory: no gasping or shortness of breath noted, no use of accessory muscles noted Cardiovascular: examination for edema is (more content not included)... Normal [facility] Established Visit (Pain Medi cine)on 08-06-2022 Established Visit (Pain Medicine) Diagnoses/Problems Cervical dystonia (333.83) (G24.3) Muscle spasm (728.85) (M62.838) Myalgia of muscle of neck (729.1) (M79.18) Patient Discussion/Summary I discussed with the patient the likely etiology of her symptoms, as well as potential treatment options I addressed options with her. Since she has had over a year of significant neck pain with associated spasm and dystonia that has not responded adequately to NSAIDs or therapy and she cannot tolerate muscle relaxants we will submit for set of Botox injections into the neck muscles. I went over the pros and cons of this plan and she was in agreement with it. Since she is having severe pain today we will proceed with a set of trigger point injections to control her symptoms to get her to the Botox injections. I will see her for follow-up as soon as those are approved. Procedure: Trigger point injections into the bilateral cervical paraspinal, upper thoracic paraspinal, and trapezius muscles Diagnosis: Myalgia Solution: 4 mL of 0.25% bupivacaine with 0.5 mL of Kenalog 20 mg. 4.5 mL total divided evenly amongst the 6 sites Anesthesia: Local Complications: None After informed consent was obtained the patient was placed in the seated position. The area in question was prepped in sterile fashion. The trigger points were identified and at each site a 27-gauge needle was inserted into the skin and advanced into the belly of the muscle. Aspiration was negative. The local anesthetic steroid solution was injected at each site. The needle was removed. Bleeding was nil. The patient tolerated the procedure well. Chief Complaint Neck Pain FUV BILATERAL C3-C5 MEDIAL BRANCH BLOCK. PATIENT STATES THAT HER NECK WAS NUMB DURING THE FOUR HOURS POST OP BUT THE PAIN WAS STILL THE SAME- 10/10. SHE STATES HER PAIN IS HARD TO DESCRIBE BUT STATES IT IS A CRAMP, BURNING AND A MUSCLE SPASM. PATIENT REPORTS THAT SHE TRIED TO RECREATE HER PAIN BY DOING DIFFERENT ACTIVITIES LIKE CLEANING, MOVING AROUND AND KEEPING BUSY AROUND THE HOUSE. PAIN SCORE TODAY 10/10. MMA/ORT REVIEWED. DUE TO ELEVATED BLOOD PRESSURE AT TODAY'S VISIT AND LAST OFFICE VISIT, I RECOMMENDED THAT SHE SCHEDULE AN OFFICE VISIT WITH HER PCP TO DISCUSS. SHE STATES THAT HER PCP DID NOT SEEM CONCERNED ABOUT IT AT HER LAST VISIT WITH THEM BUT THAT SHE HAS NOT SEEN THEM IN A WHILE; THIS NURSE AGAIN RECOMMENDED THAT SHE SCHEDULE AN APPOINTMENT TO DISCUSS PATIENT'S ELEVATED BLOOD PRESSURE. This is a 67-year-old female here for a follow-up appointment for chief complaint of bilateral neck pain. At her last visit she underwent a set of bilateral diagnostic cervical medial branch blocks from C3-C5. She reports that the symptoms have remained persistent. The pain is present in the neck and will radiate into the proximal shoulders but not down the arms. She has associated spasms in the muscles as well. The right side is a little bit worse than the left. She has not had sufficient benefit with physical therapy. She has also tried muscle relaxants but was unable to tolerate them due to sedation. She would like to move forward with Botox injections. She has gotten 50 to 60% relief with trigger point injections which helped her function but the pain will still limit her so she would like to explore Botox as an option. She denies new neurologic symptoms or issues with bladder or bowel control. The patient's past medical, social, and family history along with medications and allergies are available and were reviewed. Adult Risk Screening Living Will. Living Will: No living will on file. Healthcare POA: No healthcare proxy on file. Domestic Violence Screen: Does not feel threatened or abused physically, emotionally or sexually. Do you feel UNSAFE? The patient feels safe in the home. Depression/Suicide Screening: During the past 2 weeks, the patient has not felt down, depressed or hopeless. During the past 2 weeks, the patient has not felt little interest or pleasure in doing things. She does not have a risk of suicide. She has not had thoughts of harming others. History of Present Illness On a scale of 0 to 10, the patient rates the pain at 10. Pain Location: Neck Pain. Pain Quality: Cramping, Spasm and Tightness. Timing/Duration: Constant and > 12 weeks duration. Goals for Pain Management: KEITH SCORE 25. Patient Education: Time out was performed in pts room before bilat cervical Trigger point injection bárbara well no complaints or questions. Review of Systems 13 systems all normal except noted in HP. 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 Normal [facility] No Panel Informationon 07-12 Please click on the link to view the study images Normal [facility] Work Phone: MRI Cervical without Contras ton 07-09-2022 MR Cervical spine WO contrast Normal [facility] Work Phone: Basophil percentageon 2021 Chloride [Moles/Vol] 105 mmol/L 98-[address] [facility] Work Phone: Glucose [Mass/Vol] 101 mg/dL 74-106 [facility] Work Phone: Comment on above: Fasting Glucose resu lt from 100 to 125 mg/dL suggests IMPAIRED HOMEOSTASIS per A.D.A. criteria. Potassium [Moles/Vol] 3.9 mmol/L 3.5-5.1 [facility] Work Phone: Sodium [Moles/Vol] 140 mmol/L 136-145 [facility] Work Phone: WBC (Bld) [#/Vol] 6.2 10*3/uL 4.4-11.0 [facility] Work Phone: Blood erythrocytes count (nu mber/volume)on 06-25-2022 RBC (Bld) [#/Vol] 3.98 10*6/uL 4.2-5.4 [facility] Work Phone: Blood hemoglobin measurement (mass/volume)on 06-25-2022 Hemoglobin (Bld) [Mass/Vol] 12.9 g/dL 12.0-15.0 [facility] Work Phone: Blood platelet mean volumeon 06-25-2022 Platelet mean volume (Bld) [Entitic vol] 10.5 fL 6.2-12.0 [facility] Work Phone: Determination of erythrocyte mean corpuscular volume (MCV)on 06-25-2022 MCV (RBC) [Entitic vol] 98.0 fL 81-99 [facility] Work Phone: Hematocrit Auto (Bld) [Volum e fraction]on 06-25-2022 Hematocrit (Bld) [Volume fraction] 39.0 % 37-47 [facility] Work Phone: Laboratory - Chemistry and C hemistry - challengeon 06-25-2022 CO2 [Moles/Vol] 29.0 mmol/L 21.0-32.0 [facility] Work Phone: Urea nitrogen/Creatinine [Mass ratio] 23.4 mg/mg 10-20 [facility] Work Phone: Laboratory - Hematology and Cell countson 06-25-2022 Erythrocyte distribution width (RBC) [Entitic vol] 43.6 fL 35.1-43.9 [facility] Work Phone: Erythrocyte distribution width (RBC) [Ratio] 12.0 % 11.6-14.6 [facility] Work Phone: MCH (RBC) [Entitic mass] 32.4 pg 27.0-32.0 [facility] Work Phone: MCHC Auto (RBC) [Mass/Vol]on 06-25-2022 MCHC (RBC) [Mass/Vol] 33.1 g/dL 32-36 [facility] Work Phone: No Panel Informationon 06-25 Estimated GFR (MDRD) Amer 96 mL/min >60 [facility] Work Phone: Comment on above: GFR Calc Estimated GFR (MDRD) Non-Af Amer 79 mL/min >60 [facility] Work Phone: Comment on above: Non- GFR Calc Platelets bldon 06-25-2022 Platelets (Bld) [#/Vol] 174 10*3/uL 150-450 [facility] Work Phone: Serum or plasma calcium [place] urement (mass/volume)on 06-25-2022 Calcium [Mass/Vol] 9.2 mg/dL 8.5-10.1 [facility] Work Phone: Serum or plasma creatinine m easurement (mass/volume)on 06-25-2022 Creatinine [Mass/Vol] 0.77 mg/dL 0.55-1.02 [facility] Work Phone: Comment on above: The validity of the calculated GFR & GFRAA in patients over 70 years has not been determined. Clinical correlation is essential. 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 I went over the pros and cons of this and she was in agreement with the plan. We did also review her cervical and thoracic x-rays. Her thoracic x-ray was unremarkable but there were several areas of spondylosis on her cervical spine. We discussed that if the axial pain were to intensify she would be an appropriate candidate for a trial of bilateral C3-C5 diagnostic medial branch blocks. Prior to committing to that though we will check an MRI. We will see how she does with the trigger point injections first since these have typically been very effective for her. I will see her for follow-up in 3 months or sooner if needed. Procedure: Trigger point injections into the bilateral cervical paraspinal, upper thoracic paraspinal, and trapezius muscles Diagnosis: Myalgia Solution: 4 mL of 0.25% bupivacaine with 0.5 mL of Kenalog 20 mg. 4.5 mL total divided evenly amongst the 6 sites Anesthesia: Local Complications: None After informed consent was obtained the patient was placed in the seated position. The area in question was prepped in sterile fashion. The trigger points were identified and at each site a 27-gauge needle was inserted into the skin and advanced into the belly of the muscle. Aspiration was negative. The local anesthetic steroid solution was injected at each site. The needle was removed. Bleeding was nil. The patient tolerated the procedure well. Chief Complaint Pain FUV for mary neck pain with radiation to mary shoulders; 04/08 today. Patient would like injections today. This is a 67 year old female here for a follow-up appointment for chief complaint of bilateral neck and shoulder blade pain. She last underwent a set of trigger point injections 9 months ago. She had over 60% pain relief and functional improvement that lasted for over 3 months. She would like to have another set today. She has maintained her home exercises and stretching for her neck over the past 9 months. She denies new neurologic symptoms or issues with bladder or bowel control. The patient's past medical, social, and family history along with medications and allergies are available and were reviewed. Adult Risk Screening Living Will. Living Will: No living will on file. Healthcare POA: No healthcare proxy on file. Domestic Violence Screen: Does not feel threatened or abused physically, emotionally or sexually. Do you feel UNSAFE? The patient feels safe in the home. Depression/Suicide Screening: She does not have a risk of suicide. She has not had thoughts of harming others. History of Present Illness On a scale of 0 to 10, the patient rates the pain at 10. Pain Location: Neck Pain. Pain Quality: Burning, Shooting and occasional shooting pain. Pain Radiation: mary shoulders. Timing/Duration: Constant and > 12 weeks duration. Review of Systems 13 systems all normal except noted in HP. 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) Surgical History History of Colonoscopy History of Hysterectomy Social History Does not have living will Feels safe at home Never a smoker No alcohol use No illicit drug use Allergies Bactrim Allergy; Recorded By: Geri Scales; 09/10/2021 8:29:16 AM diarrhea, vomiting ciprofloxacin Recorded By: Judit Castellanos; 06/29/2019 8:18:06 AM Penicillins Recorded By: Judit Castellanos; 06/29/2019 8:18:06 AM Current Meds Medication NameInstruction Acetaminophen 325 MG Oral Tablet Vitals Vital Signs Recorded: [id number] 08:51AM Heart Rate86 Ccnbedqnxhf86 Lxvqtquu173 Yonmconyc51 Nhyxka927 lb 12.8 oz BMI Yedqtcftjs71.04 kg/m2 BSA Calculated1.56 Physical Exam Constitutional: no acute distress, well appearing and well nourished. Patient appears stated age. Eyes: conjunctiva anicteric and eye lids are without obvious rash or drooping. Pupils are symmetric Ears, Nose, Mouth, and Throat: external ears and nose appear to be without deformity or rash. No lesions or masses noted. Hearing is grossly intact Head and Face: examination of the head and face revealed no abnormalities Respiratory: no gasping or shortness of breath noted, no use of accessory muscles noted Cardiovascular: examination for edema is normal, examination of lower extremities for varicosities is normal, examination for varicosities in the upper extremities is normal Abdomen: non-tender, no masses Skin: no rashes or open lesions/ulcers identified on skin. No induration/tightening noted with palpation of skin Musculoskeletal: digits/nails show no clubb (more content not included)... 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 Bacteria identified Cx Nom (U) Final report Abnormal [facility] Work Phone: Comment on above: PATIENT NOT FASTINGP ERFORMED BY: PHOEBE SHIFT DC [id number] Information: SRC:MARY Bacteria identified Cx Nom (U) ENTECN Abnormal [facility]; [facility] Work Phone: Comment on above: Enterobacter cancero genusGreater than 100,000 colony forming units per mL S = Susceptible; I = Intermediate; R = Resistant P = Positive; N = Negative MICS are expressed in micrograms per mL Antibiotic RSLT#1 RSLT#2 RSLT#3 RSLT#4Amoxicillin/Clavulanic Acid SCefazolin RCefepime SCeftriaxone SCefuroxime ICiprofloxacin SGentamicin SImipenem SMeropenem SNitrofurantoin STetracycline STobramycin STrimethoprim/Sulfa S PATIENT NOT FASTINGP ERFORMED BY: PHOEBE SHIFT DC [id number] Information: SRC:MARY Urinalysis, Office ([id number])Or dered By: Drew Gutierrez on 06-15-2021 Bilirubin Ql (U) Negative Normal [facility]; [facility] Work Phone: Glucose Test strip (U) [Mass/Vol] Negative Normal [facility] Work Phone: Hemoglobin Ql (U) Negative Normal Compre[facility]; [facility] Work Phone: Ketones Ql (U) Negative Normal [facility]prehens [facility]; [facility] Work Phone: Leukocyte esterase Test strip Ql (U) Negative Normal [facility]; [facility] Work Phone: Nitrite Ql (U) Negative Normal [facility]; [facility] Work Phone: pH (U) 6 [pH] Abnormal [facility]; [facility] Work Phone: Protein Ql (U) Negative Normal [facility]; [facility] Work Phone: Specific gravity (U) [Rel density] 1.010 1 Normal [facility]; [facility] Work Phone: Urobilinogen (24H U) [Mass/Time] Normal Normal [facility]; [facility] Work Phone: PROGRESSon 09-16-2018 Protein mass conc HNO ID: [id number] Author: Hilary Nascimento Service: ? Author Type: Physician Type: Progress Notes Filed: 09/19/2018 11:07 AM Note Text: HISTORY AND PHYSICAL Dustin Tracy 1955 REFERRING PHYSICIAN: Marycruz Waller CNP CHIEF COMPLAINT: Consult HPI: The patient is a 63 year old female with a complaint of subcutaneous mass of right arm. She noted initially a pea-sized lesion of the upper inner right arm. She states that initially, in August 03, 2018, she had a biopsy of her finger by Dr. Winter. She then noted the arm lesion increased in size. She notes tenderness of the upper outer quadrant of the right breast. She underwent needle biopsy of this lesion 08/20/[address] Ricardo. Pathology revealed - fragments of fibroadeipose tissue fibroconnective tissue with focal fat necrosis and acute chronic inflammation, focal area suggestive of granuloma formation She states that she underwent cat scratch disease test - which was negative. Mammograms - 08/27/18 - 4.9mm x 4.4mm well defined nodule in the deep mid slightly lateral aspect of the right breast US right breast 08/28/18 - 4mm cyst at 8:00, 2 cm from nipple, benign appearing No cancer known in family. Denies fevers. Denies night sweats. Denies nipple discharge. Denies previous breast biopsies. PAST MEDICAL HISTORY Diagnosis Date - Cervical dystonia PAST SURGICAL HISTORY Procedure Laterality Date - COLONOSCOPY 2017 - US BIOPSY LYMPH NODE Right 07/2018 arm - VAGINAL HYSTERECTOMY Current Outpatient Medications: cephALEXin (KEFLEX) 500 mg capsule Take 1 capsule by mouth twice daily. ALLERGIES: Ciprofloxacin; Penicillins PERSONAL HISTORY: Social History Socioeconomic History Marital status: Spouse name: Not on file Number of children: Not on file Years of education: Not on file Highest education level: Not on file Social Needs Financial resource strain: Not on file Food insecurity - worry: Not on file Food insecurity - inability: Not on file Transportation needs - medical: Not on file Transportation needs - non-medical: Not on file Occupational History Not on file Tobacco Use Smoking status: Never Smoker Smokeless tobacco: Never Used Substance and Sexual Activity Alcohol use: Never Frequency: Never Drug use: Never Sexual activity: Not on file Other Topics Concerns: Not on file Social History Narrative Not on file FAMILY HISTORY: History reviewed. No pertinent family history. REVIEW OF SYSTEMS: General: No weight change, appetite, fatigue, colon cancer, breast cancer or weakness HEENT: No difficulty swallowing, eye injury, eye surgery, swollen glands or hoarseness Endocrine: No thyroid disease, diabetes mellitus, thyroid cancer, Hair loss, heat intolerance or cold intolerance Skin: skin lesion of finger biopsied by Dr. Winter - violaceous nodule Breast: No left breast lump, right breast lump, nipple discharge, breast pain, abnormal mammogram, abnormal US or breast enlargement Musculoskeletal: Arthritis; no back problems, rheumatoid arthritis, gout or joint pain Cardiovascular: No murmur, pacemaker, heart disease, atrial fibrillation, high blood pressure, heart attack, heart stent, palpitations, shortness of breat with exertion or chest pain Respiratory: No shortness of breath, No sleep apnea, No cough, No COPD, No asthma, No emphysema, No wheezing Gastrointestinal: No abdominal pain, No nausea or vomiting, No diarrhea, No constipation, No blood in stool, No acid reflux, Yes hemorrhoids, No ulcers, No gallbladder problem, No black,tarry stools Hematologic: No blood thinners, No blood disorders, No bleeding, No anemia, No blood clots Neurologic: No abnormal walking, No abnormal hearing, No abnormal movements, No abnormal speech, No confusion, No seizure-like activity, No unsteadiness, No dizziness, No localized weakness, No frequent falls, No headache(s), No lack of coordination, No loss of vision, No memory loss, No numbness, No other visual disturbances, No radiating pain, No restless legs, No sensory deficit, No fainting, No tingling, No tremor(s), No weakness Psych: has some anxiety, no major mood swings, no behavioral changes PHYSICAL EXAMINATION: General: The patient is 63 year old female, well nourished, well hydrated in no acute distress. The patient is oriented to time, place, and person. VITALS: Blood pressure 146/106, pulse 84, temperature 36.6 ?C (97.9 ?F), weight 51.6 kg (113 lb 12.8 oz). Head ? Normocephalic. EOM intact with sclera clear and no icterus noted. Mouth with mucus membranes moist. Neck - supple with no jugular venous distention noted. Trachea is midline. No masses noted. Lungs ? clear to auscultation. normal breath sounds in all lung bonilla. No rales/rhonchi/wheezing noted. No labored breathing noted, such as retractions. No cough heard. Heart ? normal S1 and S2 auscultated. No rubs/clicks/murmurs noted. Regular rate. Abdomen ? soft and benign. Extremities ? no pitting edema noted. Skin ? normal skin integrity. Lymph ? upper inner arm with 2 cm subcutaneous mass with swelling and overlying erythema, no drainage noted, no streaking noted Neurological ? gait normal, no focal deficits noted Psych ? calm and appropriate RADIOLOGIC STUDIES: As Noted Assessment IMPRESSION: subcutaneous mass of right upper arm - probable lymph node PLAN: I have discussed the above with the patient. I have reviewed previous outpatient notes by Dr. Ricardo. I have reviewed the radiological studies reports. I have reviewed the pathology reports as stated above. Suspect reactive lymph node, given swelling and recent procedures as causative agents in patient's presentation. I have offered excisional biopsy of this lesion. I have explained the procedure to the patient. I have counseled the patient as to the risks of the procedure, including but not limited to: infection, bleeding, injury to any blood vessels/nerves, scar tissue, wound infections, complications of anesthesia, etc. ? the patient understands. This can be done as an office procedure using local anesthetic. The patient wishes to undergo another trial of antibiotics before consideration surgical excision. Patient to follow up with me if no resolution after antibiotics treatment. I have answered all questions to the patient?s satisfaction and the patient has no further questions. . Diagnoses: (I88.9) Nonspecific lymphadenitis (primary encounter diagnosis) Return to Clinic: The patient is instructed to follow-up with me as per above. I have confirmed and edited as necessary, the PFSH and ROS obtained by others. ___ Hilary Nascimento MD [facility] CNOVon 09-14-2018 CNOV Office Visit (GENSWS ) -- DUSTIN TRACY ([id number]) 1955 F Date Time Provider Department 09/14/18 9:10 AM HILARY NASCIMENTO During your visit today, we recorded the following information about you: Temperature Pulse Blood pressure Weight 97.9 degrees 84/minute 146/106 51.6 kg Neyda Ogden LPN 09/14/2018 9:31 AM Signed REVIEW OF SYSTEMS: General: The patient denies fatigue, denies weight loss, denies weight gain, denies feeling hot, and NOTES feelings of cold. Eyes: The patient denies glaucoma, denies eye injury/surgery, does not wear glasses or contacts. Ear/Nose/Throat: The patient denies allergies, denies hayfever, denies ear infections, and denies bloody noses. Cardiovascular: The patient denies chest pain, denies heart disease, denies high blood pressure,denies cardiac stent, denies prior heart attack, denies irregular heart beat, denies high cholesterol, denies poor circulation, denies heart failure, other cardiac issues, denies claudication, denies cold feet, denies peripheral arterial stent. Respiratory: The patient denies tuberculosis, denies pneumonia, denies frequent cough, denies pulmonary embolism, denies shortness of breath, and denies coughing up blood. Gastrointestinal: The patient denies difficulty swallowing, denies acid reflux, denies ulcers, denies vomiting, denies jaundice/hepatitis, denies gallbladder problems, denies black or tarry stools, denies hemorrhoids, denies bleeding from rectum, denies diverticulitis, denies constipation, denies diarrhea, denies loss of stool control, and denies hernias. Kidney/Bladder: The patient denies kidney stones, denies urine infections, and denies bloody urine. Skin: The patient denies a history of skin cancer, denies bleeding/changing moles, and denies a history of skin rash. Neurologic: The patient denies a history of epilepsy/convulsions, denies headaches, denies head/spinal injuries, and denies stroke/TIA. Psychiatric: The patient denies psychiatric medications, denies depression, and denies voices, denies substance abuse. Endocrine: The patient denies thyroid disorders, denies diabetes, and denies hormonal problems. Hematologic: The patient NOTES a history of bruising, denies bleeding, and denies anemia, denies blood clots. Infections: The patient denies a history of measles and mumps, denies rheumatic fever, and denies sexually transmitted diseases. Musculoskeletal: The patient denies back pain/injury, denies back problems, denies sciatica, denies knee/foot trouble, NOTES arthritis, or denies gout. When was patient's last Mammogram screening? 2019 Last Colonoscopy: None Neyda Ivy RN 09/14/2018 9:45 AM Signed Patient had an elevated BP at this visit. She was encouraged to see PCP regarding this. She sated that she takes it at home and it is never elevated and she is not concerned about it. Montse Nascimento MD 09/19/2018 11:07 AM Signed HISTORY AND PHYSICAL Dustin Bronson 1955 REFERRING PHYSICIAN: Marycruz Waller CNP CHIEF COMPLAINT: Consult HPI: The patient is a 63 year old female with a complaint of subcutaneous mass of right arm. She noted initially a pea-sized lesion of the upper inner right arm. She states that initially, in August 03, 2018, she had a biopsy of her finger by Dr. Winter. She then noted the arm lesion increased in size. She notes tenderness of the upper outer quadrant of the right breast. She underwent needle biopsy of this lesion 08/20/[address] Ricardo. Pathology revealed - fragments of fibroadeipose tissue fibroconnective tissue with focal fat necrosis and acute chronic inflammation, focal area suggestive of granuloma formation She states that she underwent cat scratch disease test - which was negative. Mammograms - 08/27/18 - 4.9mm x 4.4mm well defined nodule in the deep mid slightly lateral aspect of the right breast US right breast 08/28/18 - 4mm cyst at 8:00, 2 cm from nipple, benign appearing No cancer known in family. Denies fevers. Denies night sweats. Denies nipple discharge. Denies previous breast biopsies. PAST MEDICAL HISTORY Diagnosis Date - Cervical dystonia PAST SURGICAL HISTORY Procedure Laterality Date - COLONOSCOPY 2017 - US BIOPSY LYMPH NODE Right 07/2018 arm - VAGINAL HYSTERECTOMY Current Outpatient Medications: cephALEXin (KEFLEX) 500 mg capsule Take 1 capsule by mouth twice daily. ALLERGIES: Ciprofloxacin; Penicillins PERSONAL HISTORY: Social History Socioeconomic History Marital status: Spouse name: Not on file Number of children: Not on file Years of education: Not on file Highest education level: Not on file Social Needs Financial resource strain: Not on file Food insecurity - worry: Not on file Food insecurity - inability: Not on file Transportation needs - medical: Not on file Transportation needs - non-medical: Not on file Occupational History Not on file Tobacco Use Smoking status: Never Smoker Smokeless tobacco: Never Used Substance and Sexual Activity Alcohol use: Never Frequency: Never Drug use: Never Sexual activity: Not on file Other Topics Concerns: Not on file Social History Narrative Not on file FAMILY HISTORY: History reviewed. No pertinent family history. REVIEW OF SYSTEMS: General: No weight change, appetite, fatigue, colon cancer, breast cancer or weakness HEENT: No difficulty swallowing, eye injury, eye surgery, swollen glands or hoarseness Endocrine: No thyroid disease, diabetes mellitus, thyroid cancer, Hair loss, heat intolerance or cold intolerance Skin: skin lesion of finger biopsied by Dr. Winter - violaceous nodule Breast: No left breast lump, right breast lump, nipple discharge, breast pain, abnormal mammogram, abnormal US or breast enlargement Musculoskeletal: Arthritis; no back problems, rheumatoid arthritis, gout or joint pain Cardiovascular: No murmur, pacemaker, heart disease, atrial fibrillation, high blood pressure, heart attack, heart stent, palpitations, shortness of breat with exertion or chest pain Respiratory: No shortness of breath, No sleep apnea, No cough, No COPD, No asthma, No emphysema, No wheezing Gastrointestinal: No abdominal pain, No nausea or vomiting, No diarrhea, No constipation, No blood in stool, No acid reflux, Yes hemorrhoids, No ulcers, No gallbladder problem, No black,tarry stools Hematologic: No blood thinners, No blood disorders, No bleeding, No anemia, No blood clots Neurologic: No abnormal walking, No abnormal hearing, No abnormal movements, No abnormal speech, No confusion, No seizure-like activity, No unsteadiness, No dizziness, No localized weakness, No frequent falls, No headache(s), No lack of coordination, No loss of vision, No memory loss, No numbness, No other visual disturbances, No radiating pain, No restless legs, No sensory deficit, No fainting, No tingling, No tremor(s), No weakness Psych: has some anxiety, no major mood swings, no behavioral changes PHYSICAL EXAMINATION: General: The patient is 63 year old female, well nourished, well hydrated in no acute distress. The patient is oriented to time, place, and person. VITALS: Blood pressure 146/106, pulse 84, temperature 36.6 ?C (97.9 ?F), weight 51.6 kg (113 lb 12.8 oz). Head ? Normocephalic. EOM intact with sclera clear and no icterus noted. Mouth with mucus membranes moist. Neck - supple with no jugular venous distention noted. Trachea is midline. No masses noted. Lungs ? clear to auscultation. normal breath sounds in all lung bonilla. No rales/rhonchi/wheezing noted. No labored breathing noted, such as retractions. No cough heard. Heart ? normal S1 and S2 auscultated. No rubs/clicks/murmurs noted. Regular rate. Abdomen ? soft and benign. Extremities ? no pitting edema noted. Skin ? normal skin integrity. Lymph ? upper inner arm with 2 cm subcutaneous mass with swelling and overlying erythema, no drainage noted, no streaking noted Neurological ? gait normal, no focal deficits noted Psych ? calm and appropriate RADIOLOGIC STUDIES: As Noted Assessment IMPRESSION: subcutaneous mass of right upper arm - probable lymph node PLAN: I have discussed the above with the patient. I have reviewed previous outpatient notes by Dr. Ricardo. I have reviewed the radiological studies reports. I have reviewed the pathology reports as stated above. Suspect reactive lymph node, given swelling and recent procedures as causative agents in patient's presentation. I have offered excisional biopsy of this lesion. I have explained the procedure to the patient. I have counseled the patient as to the risks of the procedure, including but not limited to: infection, bleeding, injury to any blood vessels/nerves, scar tissue, wound infections, complications of anesthesia, etc. ? the patient understands. This can be done as an office procedure using local anesthetic. The patient wishes to undergo another trial of antibiotics before consideration surgical excision. Patient to follow up with me if no resolution after antibiotics treatment. I have answered all questions to the patient?s satisfaction and the patient has no further questions. . Diagnoses: (I88.9) Nonspecific lymphadenitis (primary encounter diagnosis) Return to Clinic: The patient is instructed to follow-up with me as per above. I have confirmed and edited as necessary, the PFSH and ROS obtained by others. ___ Hilary Nascimento MD Referring Provider: MARYCRUZ WALLER [[id number]] Allergies As of Date: 09/14/2018 Noted Allergy Reaction CIPROFLOXACIN 09/14/2018 8 - GI Upset Comments: Severe GI disturbance PENICILLINS 09/14/2018 14 - Other: See Comments Comments: Yeast infection Date Reviewed: 09/14/2018 Reviewed by: Montse Ivy RN - Fully Assessed Reason for Visit: Consult [173] Primary Visit Diagnosis:Nonspecific lymphadenitis [I88.9] Order(s):cephALEXin (KEFLEX) 500 mg capsuleTake 1 capsule by mouth twice daily.Disp: 20 capsuleRfl: 0 Prescriptions as of 09/14/2018 Sig: CEPHALEXIN 500 MG CAPSULE Take 1 capsule by mouth twice* Problem List As Of Date: 09/14/2018 (None) Visit Notes: >> Neyda Ogden LPN FriSep 14, 2018 9:30 AM Status: Signed REVIEW OF SYSTEMS: General: The patient denies fatigue, denies weight loss, denies weight gain, denies feeling hot, and NOTES feelings of cold. Eyes: The patient denies glaucoma, denies eye injury/surgery, does not wear glasses or contacts. Ear/Nose/Throat: The patient denies allergies, denies hayfever, denies ear infections, and denies bloody noses. Cardiovascular: The patient denies chest pain, denies heart disease, denies high blood pressure,denies cardiac stent, denies prior heart attack, denies irregular heart beat, denies high cholesterol, denies poor circulation, denies heart failure, other cardiac issues, denies claudication, denies cold feet, denies peripheral arterial stent. Respiratory: The patient denies tuberculosis, denies pneumonia, denies frequent cough, denies pulmonary embolism, denies shortness of breath, and denies coughing up blood. Gastrointestinal: The patient denies difficulty swallowing, denies acid reflux, denies ulcers, denies vomiting, denies jaundice/hepatitis, denies gallbladder problems, denies black or tarry stools, denies hemorrhoids, denies bleeding from rectum, denies diverticulitis, denies constipation, denies diarrhea, denies loss of stool control, and denies hernias. Kidney/Bladder: The patient denies kidney stones, denies urine infections, and denies bloody urine. Skin: The patient denies a history of skin cancer, denies bleeding/changing moles, and denies a history of skin rash. Neurologic: The patient denies a history of epilepsy/convulsions, denies headaches, denies head/spinal injuries, and denies stroke/TIA. Psychiatric: The patient denies psychiatric medications, denies depression, and denies voices, denies substance abuse. Endocrine: The patient denies thyroid disorders, denies diabetes, and denies hormonal problems. Hematologic: The patient NOTES a history of bruising, denies bleeding, and denies anemia, denies blood clots. Infections: The patient denies a history of measles and mumps, denies rheumatic fever, and denies sexually transmitted diseases. Musculoskeletal: The patient denies back pain/injury, denies back problems, denies sciatica, denies knee/foot trouble, NOTES arthritis, or denies gout. When was patient's last Mammogram screening? 2019 Last Colonoscopy: None Neyda Alin INFANTEN >> Montse Ivy RN Mon Sep 14, 2018 9:44 AM Status: Signed Patient had an elevated BP at this visit. She was encouraged to see PCP regarding this. She sated that she takes it at home and it is never elevated and she is not concerned about it. Montse Ivy RN Prescriptions ordered this encounter Disp Refills Start End CEPHALEXIN 500 MG CAPSULE 20 c* 0 09/14/2018 Route: ORAL Sig: Take 1 capsule by mouth twice daily. Letter Text Encounter Status:Closed by MD HILARY NASCIMENTO on 09/19/18 Normal [facility] Culture, Deep WoundOrdered B y: Furnace Charging Machine Operator on 08-20-2018 Bacteria identified Cx Nom (Wound deep) See Note Normal Comprehensiv e Internal Medicine Work Phone: Comment on above: Gram StainGram Stain 2+ White Blood Cells No organisms seen Wound CultureNo growth aerobically. Cult, AnaerobicNo anaerobic bacteria isolated. [facility] [address] [place], [address] Mass (define area)Ordered By : Furnace Charging Machine Operator on 08-20-2018 Mass (define area) See Note Normal Compre hensive Internal Medicine Work Phone: Comment on above: Patient: JULIO TRACY : 1955 (63/F) Acct Num: [id number] Phys: Davion PURDY,Leon Unit Num: [id number] Loc: LABSPEC Specimen: [id number] Received: 08/20/18 - 1099 Spec Type: Mass TISSUES 1 TISSUES: Right arm (tissue only) COMMENT Correlation with clinical findings and appropriate follow up are necessary. Case has been reviewed in consultation with Dr. Sewell who concurs with the above diagnosis. IDC:AM GROSS DESCRIPTION Received in fixative is one container labeled with the patient's name and designated right arm mass. The specimen consists of two elongated fragments of rosado soft tissue that in aggregate measure 0.4 x 0.2 x 0.1 cm. The specimen is totally submitted in one cassette. / SJ:vicki 08/20/18 TC:3 CPT: 64856, 21700 x2 HEADER OPERATION: Right arm biopsy PRE-OP DIAGNOSIS: Right arm mass TISSUE SUBMITTED: Right arm tissue MICROSCOPIC DESCRIPTION Slides are reviewed. MICROSCOPIC DIAGNOSIS Right arm tissue, core biopsy: Fragments of fibroadipose and fibroconnective tissue with focal fat necrosis, acute and chronic inflammation, granulation tissue reaction and focal area suggestive of granuloma formation. Negative for malignancy. Special stains for acid fast bacilli and fungi are negative for organisms; matched controls are appropriate. SJ:vicki 08/21/18 Signed Aayush Luu MD 08/21/[address] [facility] [address] [facility] [place], [address] Cat Scratch Disease ABOrdere d By: Furnace Charging Machine Operator on 08-04-2018 Cat Scratch Disease AB Negative Normal [facility] Work Phone: Comment on above: [facility] (refer to re port for specific site)refer to report for address and phone number Note: Bartonella hen selae is now regarded as the etiologicagent of Cat Scratch Disease, bacillary angiomatosis,endocarditis and fever with bacteremia. Bartonellaquintana also causes bacillary angiomatosis particularlyamong immunocompromised patients, and trench fever.This test was developed and its performance characteristicsdetermined by [employer]. It has not been cleared or approvedby the Food and Drug Administration. The FDA hasdetermined that such clearance or approval is notnecessary.Performed at: [address] [id number] Director: Sera Whiteside MD, Phone: [phone] Basic Metabolic Profile (BMP )Ordered By: Furnace Charging Machine Operator on 09-13-2017 Basic metabolic 2000 panel 22.1 {RATIO} Abnormal 10-20 [facility] Work Phone: Comment on above: [facility] [address] [place], [address] Basic metabolic 2000 panel 8 1 Normal 5-15 [facility] Work Phone: Comment on above: [facility] [address] [place], [address] Basic metabolic 2000 panel 80 mL/min Normal [facility] Work Phone: Comment on above: Non- GFR Calc [facility] [address] [place], [place], [address] Basic metabolic 2000 panel 105 mmol/L Normal 98-107 [facility] Work Phone: Comment on above: [facility] [address] [place], [place], [address] Basic metabolic 2000 panel 104 mg/dL Normal 74-106 [facility] Work Phone: Comment on above: Fasting Glucose resu lt from 100 to 125 mg/dLsuggests IMPAIRED HOMEOSTASIS per A.D.A. criteria.Please note revised GLUCOSE reference range fquehzpke66/02/2018. [facility] [address] [place], [place], [address] Basic metabolic 2000 panel 63.72 ml/min Normal [facility] Work Phone: Comment on above: [facility] [address] [place], [place], [address] Basic metabolic 2000 panel 17 mg/dL Normal 7-18 [facility] Work Phone: Comment on above: [place] [address] [place], [address] Basic metabolic 2000 panel 4.0 mmol/L Normal 3.5-5.1 [facility] Work Phone: Comment on above: [facility] [address] [place], [place], [id number] Basic metabolic 2000 panel 0.77 mg/dL Normal 0.55-1.02 [facility] Work Phone: Comment on above: The validity of the calculated GFR AND GFRAA in patients over70 years has not been determined. Clinical correlation isessential. [facility] [address] [place], [place], [address] Basic metabolic 2000 panel 97 mL/min Normal [facility] Work Phone: Comment on above: [facility] Calc [facility] [address] [place], [place], [address] Basic metabolic 2000 panel 141 mmol/L Normal 136-145 [facility] Work Phone: Comment on above: [facility] [address] [place], [place], [address] Basic metabolic 2000 panel 8.7 mg/dL Normal 8.5-10.1 [facility] Work Phone: Comment on above: [facility] [address] [place], [address] Basic metabolic 2000 panel 28.0 mmol/L Normal 21.0-32.0 [facility] Work Phone: Comment on above: [facility] [address] [place], [address] CBC W/Diff, AutomatedOrdered By: Furnace Charging Machine Operator on 09-13-2017 Absolute Neut 4.8 {X10_3/uL} Normal 2.0-7.7 Compreh ensive Internal Medicine Work Phone: Comment on above: [facility] [address] [place], [address] Basophils/100 WBC (Bld) 0.1 % Normal 0-1 [facility] Work Phone: Comment on above: [facility] [address] [place], [address] Eosinophils/100 WBC (Bld) 0.8 % Normal 0-5 [facility] Work Phone: Comment on above: [facility] [address] [place], [place], [address] Erythrocyte distribution width (RBC) [Ratio] 11.9 % Normal 11.6-14.6 [facility] Work Phone: Comment on above: [facility] [address] [place], [address] Hematocrit (Bld) [Volume fraction] 37.8 % Normal 37-47 [facility] Work Phone: Comment on above: [facility] [address] [place], [address] Hemoglobin (Bld) [Mass/Vol] 12.4 g/dL Normal 12.0-15.0 [facility] Work Phone: Comment on above: [facility] [address] [place], [address] IM GRAN % 0.000 % Normal 0.0-0.9 [facility] Work Phone: Comment on above: IG% - Immature Granu locytes (promyelocytes, myelocytes andmetamyelocytes) > 1% indicates that a LEFT SHIFT is Present. [facility] [address] [place], [address] Lymphocytes (Bld) [#/Vol] 2.16 {X10_3/ul} Normal 0.83-4.51 [facility] Work Phone: Comment on above: [facility] [address] [place], [address] Lymphocytes/100 WBC (Bld) 28.3 % Normal 19-41 [facility] Work Phone: Comment on above: [facility] [address] [place], [address] MCH (RBC) [Entitic mass] 31.6 pg Normal 27.0-32.0 [facility] Work Phone: Comment on above: [facility] [address] [place], [address] MCHC (RBC) [Mass/Vol] 32.8 {g/gl} Normal 32-36 [facility] Work Phone: Comment on above: [facility] [address] [place], [address] MCV (RBC) [Entitic vol] 96.2 fL Normal 81-99 [facility] Work Phone: Comment on above: [facility] [address] [place], [address] Monocytes/100 WBC (Bld) 8.3 % Normal 0-10 [facility] Work Phone: Comment on above: [facility] [address] [place], [address] Neutrophils/100 WBC (Bld) 62.5 % Normal 47-70 [facility] Work Phone: Comment on above: [facility] [address] [place], [address] Platelet mean volume (Bld) [Entitic vol] 10.0 fL Normal 6.2-12.0 [facility] Work Phone: Comment on above: [facility] [address] [place], [address] Platelets (Bld) [#/Vol] 165 10*3/uL Normal 150-450 [facility] Work Phone: Comment on above: [facility] [address] [place], [address] RBC (Bld) [#/Vol] 3.93 {M/mm3} Abnormal 4.2-5.4 [facility] Internal Medicine Work Phone: Comment on above: [facility] [address] [place], [address] RDW SD 42.1 fL Normal 35.1-43.9 [facility] Work Phone: Comment on above: [facility] [address] [place], [place], [address] WBC (Bld) [#/Vol] 7.6 10*3/uL Normal 4.4-11.0 [facility] Internal Medicine Work Phone: Comment on above: [facility] [address] [place], [place], [address] LipaseOrdered By: System Man ager on 09-13-2017 Lipase [Catalytic activity/Vol] 146 U/L Normal 73-393 [facility] Work Phone: Comment on above: [facility] [address] [place], [address] Liver ProfileOrdered By: Karina tem Senior Net Developer on 09-13-2017 Albumin [Mass/Vol] 4.0 g/dL Normal 3.2-5.0 [facility] Internal Medicine Work Phone: Comment on above: [facility] [address] [place], [place], [address] ALP enzyme act/vol 60 U/L Normal 45-117 [facility] Internal Medicine Work Phone: Comment on above: [facility] [address] [place], [place], [address] ALT [Catalytic activity/Vol] 15 U/L Normal 13-56 [facility] Work Phone: Comment on above: Please note revised ALT reference range [id number]/28/2018. [facility] [address] [place], [address] AST [Catalytic activity/Vol] 15 U/L Normal 15-37 [facility] Work Phone: Comment on above: [facility] [address] [place], [address] Bilirubin [Mass/Vol] 0.30 mg/dL Normal 0.20-1.00 [facility] Internal [facility] Work Phone: Comment on above: [facility] [address] [place], [place], [address] Bilirubin.direct [Mass/Vol] 0.08 mg/dL Normal 0.00-0.30 [facility] Work Phone: Comment on above: [facility] [address] [place], [place], [address] Globulin (S) [Mass/Vol] 3.1 g/dL Normal 2.2-4.2 [facility] Work Phone: Comment on above: [facility] [address] [place], [place], [address] Hepatic function 2000 panel - Serum or Plasma 7.1 g/dL Normal 6.4-8.2 [facility] Work Phone: Comment on above: [facility] [address] [place], [place], [address] Hepatic function 2000 panel - Serum or Plasma 60 U/L Normal 45-117 [facility] Work Phone: Comment on above: [facility] [address] [place], [place], [address] Protein mass conc 7.1 g/dL Normal 6.4-8.2 Compreh ensive Internal Medicine Work Phone: Comment on above: [facility] [address] [place], [place], [address] Urinalysis, CompleteOrdered By: Furnace Charging Machine Operator on 09-13-2017 Protein mass conc (U) Negative Normal [facility] Work Phone: Comment on above: Order Date: 09/13/17 Has pt arrived? YHow was Urine Obtained? [facility] [address] [place], [place], [address] RBC (U) [#/Vol] 0 SEEN Normal 0-5 Comprehen sive Internal Medicine Work Phone: Comment on above: Order Date: 09/13/17 Has pt arrived? YHow was Urine Obtained? [facility] [address] [place], [address] Urinalysis complete panel - Urine 25 /ul Abnormal [facility] Work Phone: Comment on above: Order Date: 09/13/17 Has pt arrived? YHow was Urine Obtained? [facility] [address] [place], [address] Urinalysis complete panel - Urine Straw Normal [facility] Work Phone: Comment on above: Order Date: 09/13/17 Has pt arrived? YHow was Urine Obtained? [facility] [address] [place], [address] Urinalysis complete panel - Urine Clear Normal [facility] Work Phone: Comment on above: Order Date: 09/13/17 Has pt arrived? YHow was Urine Obtained? [facility] [address] [place], [address] Urinalysis complete panel - Urine Normal Normal [facility] Work Phone: Comment on above: Order Date: 09/13/17 Has pt arrived? YHow was Urine Obtained? [facility] [address] [place], [address] Urinalysis complete panel - Urine Negative Normal [facility] Work Phone: Comment on above: Order Date: 09/13/17 Has pt arrived? YHow was Urine Obtained? [facility] [address] [place], [address] Urinalysis complete panel - Urine 1.010 1 Normal 1.002-1.03 0 [facility] Work Phone: Comment on above: Order Date: 09/13/17 Has pt arrived? YHow was Urine Obtained? [facility] [address] [place], [address] Urinalysis complete panel - Urine 7.0 1 Normal 5.0 - 8.0 [facility] Work Phone: Comment on above: Order Date: 09/13/17 Has pt arrived? YHow was Urine Obtained? [facility] [address] [place], [address] Urinalysis complete panel - Urine 0-5 SEEN Normal 5-10 [facility] Work Phone: Comment on above: Order Date: 09/13/17 Has pt arrived? YHow was Urine Obtained? [facility] [address] [place], [address] Urinalysis complete panel - Urine 0 SEEN Normal [facility] Work Phone: Comment on above: Order Date: 09/13/17 Has pt arrived? YHow was Urine Obtained? [facility] [address] [place], [place], [address] URINE SUSAN CULTURE[place]IDENTIF[place] ([id number])Ordered By: Furnace Charging Machine Operator on 09-04-2017 Bacteria identified Cx Nom (U) Escherichia coli Abnormal [facility] Work Phone: Comment on above: Greater than 100,000 colony forming units per mL PATIENT NOT FASTINGP ERFORMED BY: Pulse 8 LabShareThisrp Rtawur1375 [facility] ScienceHaywood Regional [facility] Center [id number] Information: SRC:UC Bacteria identified Cx Nom (U) Final report Abnormal [facility] Work Phone: Comment on above: PATIENT NOT FASTINGP ERFORMED BY: [facility] [address] AnalysisHaywood Regional Medical Center [id number] Information: SRC:UC Other Antibiotic [Susc] MIHEAD Normal [facility] Work Phone: Comment on above: S = Susceptible; I = Intermediate; R = Resistant P = Positive; N = Negative MICS are expressed in micrograms per mL Antibiotic RSLT#1 RSLT#2 RSLT#3 RSLT#4Amoxicillin/Clavulanic Acid SAmpicillin RCefepime SCeftriaxone SCefuroxime ICephalothin ICiprofloxacin SErtapenem SGentamicin SImipenem SLevofloxacin SNitrofurantoin SPiperacillin STetracycline STobramycin STrimethoprim/Sulfa S PATIENT NOT FASTINGP ERFORMED BY: PHOEBE [facility] Yfrcem[address] Jung RoadDublin [place] [id number] Information: SRC:MARY Urinalysis, Office ([id number])Or dered By: Franca Fofana on 09-04-2017 Bilirubin Ql (U) Negative Normal Comprehe nsive Internal Medicine Work Phone: Bilirubin Ql (U) Negative Normal Comprehe nsive Internal Medicine; [facility] Work Phone: Glucose Test strip (U) [Mass/Vol] Negative Normal [facility] Work Phone: Glucose Test strip (U) [Mass/Vol] Negative Normal [facility]; [facility] Work Phone: Hemoglobin Ql (U) Hemolyzed Trace Normal Co mprehensive Internal Medicine Work Phone: Ketones Ql (U) 15 mg/dL Abnormal Comprehens dora Internal Medicine Work Phone: Leukocyte esterase Test strip Ql (U) Trace Normal [facility] Work Phone: Nitrite Ql (U) Positive Normal Comprehens dora [facility] Work Phone: Nitrite Ql (U) Positive Normal Comprehens [facility]; [facility] Work Phone: pH (U) 6 [pH] Abnormal [facility] Work Phone: Protein Ql (U) Negative Normal Comprehens [facility] Work Phone: Protein Ql (U) Negative Normal Comprehens d[facility]; [facility] Work Phone: Specific gravity (U) [Rel density] 1.005 1 Normal [facility] Work Phone: Urobilinogen (24H U) [Mass/Time] Normal Normal [facility] Work Phone: AMYLASE ([id number])Ordered By: S ystem Senior Net Developer on 04-09-2016 Amylase [Catalytic activity/Vol] 83 U/L Normal 31-124 [facility] Work Phone: Comment on above: PATIENT NOT FASTINGP ERFORMED BY: PHOEBE Drummondlin6370 [facility] [id number] CBC, PLATELETS & AUT DIFF ([id number])Ordered By: Furnace Charging Machine Operator on 04-09-2016 Basophils (Bld) [#/Vol] 0.0 {x10E3/uL} Normal 0.0-0.2 [facility] Work Phone: Comment on above: PATIENT NOT FASTINGP ERFORMED BY: [facility] Xzvocd4470 [facility] [id number] Basophils (Bld) [#/Vol] 0.0 10*3/uL Normal 0.0-0.2 [facility]; [facility] Work Phone: Comment on above: PATIENT NOT FASTINGP ERFORMED BY: [facility] Lqqfwt8012 [facility] [id number] Basophils/100 WBC (Bld) 0 % Normal [facility] Work Phone: Comment on above: PATIENT NOT FASTINGP ERFORMED BY: David Cjjbfn3672 [facility] [id number] Eosinophils (Bld) [#/Vol] 0.0 {x10E3/uL} Normal 0.0-0.4 [facility] Work Phone: Comment on above: PATIENT NOT FASTINGP ERFORMED BY: LabBrian Ville [id number] [facility] [id number] Eosinophils (Bld) [#/Vol] 0.0 10*3/uL Normal 0.0-0.4 [facility]; [facility] Work Phone: Comment on above: PATIENT NOT FASTINGP ERFORMED BY: LabProm[facility]6370 [facility] [id number] Eosinophils/100 WBC (Bld) 0 % Normal [facility] Work Phone: Comment on above: PATIENT NOT FASTINGP ERFORMED BY: PHOEBE [facility] Hokjim93[address] Jung RoadDublin [place] [id number] Erythrocyte distribution width (RBC) [Ratio] 12.3 % Normal 12.3-15.4 [facility] Work Phone: Comment on above: PATIENT NOT FASTINGP ERFORMED BY: CB [facility] Ilgobb[address] Jung RoadDublin [place] [id number] Hematocrit (Bld) [Volume fraction] 38.1 % Normal 37.5-51.0 [facility] Work Phone: Comment on above: PATIENT NOT FASTINGP ERFORMED BY: [facility] Zebkry9089 Jung RoadDublin [place] [id number] Hemoglobin (Bld) [Mass/Vol] 13.1 g/dL Normal 12.6-17.7 [facility] Work Phone: Comment on above: PATIENT NOT FASTINGP ERFORMED BY: [facility] Senqmi4725 Jung RoadQuorum Healthin [place] [id number] Immature granulocytes (Bld) [#/Vol] 0.0 {x10E3/uL} Normal 0.0-0.1 [facility] Work Phone: Comment on above: PATIENT NOT FASTINGP ERFORMED BY: PHOEBE [facility] Koucdt[address] Jung RoadDublin [place] [id number] Immature granulocytes (Bld) [#/Vol] 0.0 10*3/uL Normal 0.0-0.1 [facility]; [facility] Work Phone: Comment on above: PATIENT NOT FASTINGP ERFORMED BY: CB [facility] Jmqmlw1782 Jung RoadDublin [place] [id number] Immature granulocytes/100 WBC (Bld) 0 % Normal [facility] Work Phone: Comment on above: PATIENT NOT FASTINGP ERFORMED BY: CB [facility] Cesqxw7343 [address] RoadDublin [place] [id number] Lymphocytes (Bld) [#/Vol] 1.5 {x10E3/uL} Normal 0.7-3.1 [facility] Work Phone: Comment on above: PATIENT NOT FASTINGP ERFORMED BY: PHOEBE [facility] Nkqatf[address] [facility] Hospitalblin [place] [id number] Lymphocytes (Bld) [#/Vol] 1.5 10*3/uL Normal 0.7-3.1 [facility]; [facility] Work Phone: Comment on above: PATIENT NOT FASTINGP ERFORMED BY: PHOEBE [facility] Orpmkd[address] [facility] [place] [id number] Lymphocytes/100 WBC (Bld) 19 % Normal [facility] Work Phone: Comment on above: PATIENT NOT FASTINGP ERFORMED BY: PHOEBE LabComal SoteloJzozbp[address] [facility] [place] [id number] MCH (RBC) [Entitic mass] 30.7 pg Normal 26.6-33.0 [facility] Work Phone: Comment on above: PATIENT NOT FASTINGP ERFORMED BY: [facility] T[address]bli[address]63 [address] [facility] [id number] MCHC (RBC) [Mass/Vol] 34.4 g/dL Normal 31.5-35.7 [facility] Work Phone: Comment on above: PATIENT NOT FASTINGP ERFORMED BY: PHOEBE Drummondlin[address] [facility] [place] [id number] MCV (RBC) [Entitic vol] 89 fL Normal 79-97 [facility] Work Phone: Comment on above: PATIENT NOT FASTINGP ERFORMED BY: CB [facility] Qythhl8675 [address] [facility]in [place] [id number] Monocytes (Bld) [#/Vol] 0.5 {x10E3/uL} Normal 0.1-0.9 [facility] Work Phone: Comment on above: PATIENT NOT FASTINGP ERFORMED BY: CB [facility] Cxumnq0278 [address] [facility] [place] [id number] Monocytes (Bld) [#/Vol] 0.5 10*3/uL Normal 0.1-0.9 [facility]; [facility] Work Phone: Comment on above: PATIENT NOT FASTINGP ERFORMED BY: PHOEBE [facility] Wjnjkl6003 Jung RoadDublin [place] [id number] Monocytes/100 WBC (Bld) 6 % Normal [facility] Work Phone: Comment on above: PATIENT NOT FASTINGP ERFORMED BY: CB [facility] Ypfupg5579 Jung RoadDublin [place] [id number] Neutrophils (Bld) [#/Vol] 5.9 {x10E3/uL} Normal 1.4-7.0 [facility] Work Phone: Comment on above: PATIENT NOT FASTINGP ERFORMED BY: CB [facility] Nnpmpl6368 Jung RoadDublin [place] [id number] Neutrophils (Bld) [#/Vol] 5.9 10*3/uL Normal 1.4-7.0 [facility]; [facility] Work Phone: Comment on above: PATIENT NOT FASTINGP ERFORMED BY: PHOEBE [facility] Cdsfjv0637 Jung RoadDublin [place] [id number] Neutrophils/100 WBC (Bld) 75 % Normal [facility] Work Phone: Comment on above: PATIENT NOT FASTINGP ERFORMED BY: CB [facility] Vgiozh4070 [address] RoadDublin [place] [id number] Platelets (Bld) [#/Vol] 209 {x10E3/uL} Normal 150-379 [facility] Work Phone: Comment on above: PATIENT NOT FASTINGP ERFORMED BY: CB [facility] Bvgqza7911 [address] RoadDublin [place] [id number] Platelets (Bld) [#/Vol] 209 10*3/uL Normal 150-379 [facility]; [facility] Work Phone: Comment on above: PATIENT NOT FASTINGP ERFORMED BY: CB [facility] Pbsbsi6915 [address] RoadDublin [place] [id number] RBC (Bld) [#/Vol] 4.27 {x10E6/uL} Normal 4.14-5.80 [facility] Internal Medicine Work Phone: Comment on above: PATIENT NOT FASTINGP ERFORMED BY: PHOEBE [facility] SoteloWkpjer6483 Jung RoadDublin [place] [id number] RBC (Bld) [#/Vol] 4.27 10*6/uL Normal 4.14-5.80 [facility] Internal Medicine; [facility] Medicine Work Phone: Comment on above: PATIENT NOT FASTINGP ERFORMED BY: CB [facility] Iiscuz7516 [address] RoadDublin [place] [id number] WBC (Bld) [#/Vol] 7.9 {x10E3/uL} Normal 3.4-10.8 [facility] Internal Medicine Work Phone: Comment on above: PATIENT NOT FASTINGP ERFORMED BY: PHOEBE LabRajat DrummondQondnu0727 [address] RoadDublin [place] [id number] WBC (Bld) [#/Vol] 7.9 10*3/uL Normal 3.4-10.8 [facility] Internal Medicine; [facility] Medicine Work Phone: Comment on above: PATIENT NOT FASTINGP ERFORMED BY: PHOEBE Lab[facility] Jidqks6707 [address] [facility] [place] [id number] LIPASE ([id number])Ordered By: stem Senior Net Developer on 04-09-2016 Lipase [Catalytic activity/Vol] 25 U/L Normal 0-59 [facility] Medicine Work Phone: Comment on above: PATIENT NOT FASTINGP ERFORMED BY: CB [facility] Ykdxat9967 [address] [facility] [place] [id number] METABOLIC PANEL, COMPREHENSI VE ([id number])Ordered By: Furnace Charging Machine Operator on 04-09-2016 Albumin [Mass/Vol] 4.5 g/dL Normal 3.6-4.8 [facility] Internal Medicine Work Phone: Comment on above: PATIENT NOT FASTINGP ERFORMED BY: CB [facility] Dcejle0146 [address] RoadDublin [place] [id number] Albumin/Globulin [Mass ratio] 1.5 {ratio} Normal 1.1-2.5 [facility] Internal Medicine Work Phone: Comment on above: PATIENT NOT FASTINGP ERFORMED BY: CB [facility] Ujiipw7354 [address] RoadDublin [place] [id number] ALP [Catalytic activity/Vol] 82 [iU]/L Normal 39-117 [facility] Work Phone: Comment on above: PATIENT NOT FASTINGP ERFORMED BY: CB [facility] Hreosa5095 [address] RoadDublin [place] [id number] ALP [Catalytic activity/Vol] 82 U/L Normal 39-117 [facility]; [facility] Work Phone: Comment on above: PATIENT NOT FASTINGP ERFORMED BY: CB [facility] Zmwhjh9616 [address] RoadDublin [place] [id number] ALT [Catalytic activity/Vol] 14 [iU]/L Normal 0-44 [facility] Work Phone: Comment on above: PATIENT NOT FASTINGP ERFORMED BY: PHOEBE [facility] Nabkzs7736 [address] RoadDublin [place] [id number] ALT [Catalytic activity/Vol] 14 U/L Normal 0-44 [facility]; [facility] Work Phone: Comment on above: PATIENT NOT FASTINGP ERFORMED BY: PHOEBE [facility] Xqwocr7859 [address] RoadDublin [place] [id number] AST [Catalytic activity/Vol] 20 [iU]/L Normal 0-40 [facility] Work Phone: Comment on above: PATIENT NOT FASTINGP ERFORMED BY: CB [facility] Vhujsp8571 [address] RoadDublin [place] [id number] AST [Catalytic activity/Vol] 20 U/L Normal 0-40 [facility]; [facility] Work Phone: Comment on above: PATIENT NOT FASTINGP ERFORMED BY: CB [facility] Fmpkyu8112 [address] RoadDublin [place] [id number] Bilirubin [Mass/Vol] 0.5 mg/dL Normal 0.0-1.2 [facility] Work Phone: Comment on above: PATIENT NOT FASTINGP ERFORMED BY: CB [facility] Skmpxl5998 [address] RoadDublin [place] [id number] Calcium [Mass/Vol] 9.7 mg/dL Normal 8.6-10.2 [facility] Internal Medicine Work Phone: Comment on above: PATIENT NOT FASTINGP ERFORMED BY: CB [facility] Kdjydv6484 [address] RoadDublin [place] [id number] Chloride [Moles/Vol] 98 mmol/L Normal 97-108 Comp rehensive [facility] Work Phone: Comment on above: Effective April 15, 2016 the reference interval for Chloride, Serum will be changing to: 97 - 106 PATIENT NOT FASTINGP ERFORMED BY: CB [facility] Foxrdz8942 [address] RoadDublin [place] [id number] CO2 [Moles/Vol] 25 mmol/L Normal 18-29 [facility] Internal Medicine Work Phone: Comment on above: PATIENT NOT FASTINGP ERFORMED BY: CB [facility] Qohriq5179 [address] RoadDublin [place] [id number] Creatinine [Mass/Vol] 0.78 mg/dL Normal 0.76-1.27 [facility] Work Phone: Comment on above: PATIENT NOT FASTINGP ERFORMED BY: CB [facility] Ngmbqv7215 [address] RoadDublin [place] [id number] GFR/1.73 sq M predicted among blacks CKD-EPI (S/P/Bld) [Vol rate/Area] 113 mL/min/1.73 Normal [facility] Work Phone: Comment on above: PATIENT NOT FASTINGP ERFORMED BY: CB [facility] Gxzzlg8712 [address] RoadD[address] [place] [id number] GFR/1.73 sq M predicted among non-blacks CKD-EPI (S/P/Bld) [Vol rate/Area] 97 mL/min/1.73 Normal [facility] Work Phone: Comment on above: PATIENT NOT FASTINGP ERFORMED BY: CB [facility] Gkuxwo2988 [address] RoadDublin [place] [id number] Globulin (S) [Mass/Vol] 3.0 g/dL Normal 1.5-4.5 [facility] Work Phone: Comment on above: PATIENT NOT FASTINGP ERFORMED BY: PHOEBE [facility] Jwhihr7361 [address] [facility]in [place] [id number] Glucose [Mass/Vol] 96 mg/dL Normal 65-99 [facility] Internal Medicine Work Phone: Comment on above: PATIENT NOT FASTINGP ERFORMED BY: PHOEBE [facility] Dmbkrv3944 [address] [facility] [id number] Potassium [Moles/Vol] 4.1 mmol/L Normal 3.5-5.2 [facility] Internal Medicine Work Phone: Comment on above: Effective April 15, 2016 the reference interval for Potassium, Serum will be changing to: 0 - 7 days 3.7 - 5.2 8 - 30 days 3.7 - 6.4 1 - 6 months 3.8 - 6.0 7 months - 1 year 3.8 - 5.3 >1 year 3.5 - 5.2 PATIENT NOT FASTINGP ERFORMED BY: [facility] Uqjirl6354 [facility] [id number] Protein [Mass/Vol] 7.5 g/dL Normal 6.0-8.5 [facility] Internal Medicine Work Phone: Comment on above: PATIENT NOT FASTINGP ERFORMED BY: PHOEBE [facility] Prlsra5130 [address] [facility] [id number] Sodium [Moles/Vol] 142 mmol/L Normal 134-144 [facility] Internal Medicine Work Phone: Comment on above: Effective April 15, 2016 the reference interval for Sodium, Serum will be changing to: 136 - 144 PATIENT NOT FASTINGP ERFORMED BY: CB [facility] Okualt3979 [address] [facility]in [place] [id number] Urea nitrogen [Mass/Vol] 13 mg/dL Normal 8-27 [facility] Work Phone: Comment on above: PATIENT NOT FASTINGP ERFORMED BY: CB [facility] Xjbyvf6819 [address] [facility] [id number] Urea nitrogen/Creatinine [Mass ratio] 17 mg/mg Normal 10-22 [facility] Work Phone: Comment on above: PATIENT NOT FASTINGP ERFORMED BY: [facility] Wmkugc4017 [facility] [id number] Sed Rate Erythrocyte (93023) Ordered By: Furnace Charging Machine Operator on 04-09-2016 ESR (Bld) [Velocity] 2 mm/h Normal 0-30 Comp [facility] Work Phone: Comment on above: PATIENT NOT FASTINGP ERFORMED BY: [facility] Tveaqo2095 [facility] [id number] TSH (THYROID STIMULATING HOR NIKKO) ([id number])Ordered By: Furnace Charging Machine Operator on 04-09-2016 TSH Qn 2.240 {uIU/mL} Normal 0.450-4.50 0 [facility] Work Phone: Comment on above: PATIENT NOT FASTINGP ERFORMED BY: [facility] Uisssw0916 [facility] [id number] URINE SUSAN CULTURE-VINNY COL C OUNT (21091)Ordered By: Furnace Charging Machine Operator on 04-09-2016 Bacteria identified Cx Nom (U) [id number] Normal [facility] Work Phone: Comment on above: No growth in 36 - 48 hours. PATIENT NOT FASTINGP ERFORMED BY: [facility] Edhigg2370 [facility] [id number] Information: SRC: Bacteria identified Cx Nom (U) Final report Normal [facility] Work Phone: Comment on above: PATIENT NOT FASTINGP ERFORMED BY: [facility] Vtujte2008 [facility] [id number] Information: SRC: Urinalysis, Office ([id number])Or dered By: Anisa Stein on 04-09-2016 Bilirubin Ql (U) Negative Normal Comprehe nsive [facility] Work Phone: Glucose Test strip (U) [Mass/Vol] Negative Normal [facility] Work Phone: Hemoglobin Ql (U) Hemolyzed Trace Normal Co mprehensive [facility] Work Phone: Ketones Ql (U) Moderate Normal Comprehens d[facility] Work Phone: Leukocyte esterase Test strip Ql (U) Negative Normal [facility] Work Phone: Nitrite Ql (U) Negative Normal [facility] Work Phone: pH (U) 6.0 [pH] Normal [facility] Work Phone: Protein Ql (U) Negative Normal [facility] Work Phone: Specific gravity (U) [Rel density] 1.005 1 Normal [facility] Work Phone: Urobilinogen (24H U) [Mass/Time] Normal Normal [facility] Work Phone: Urinalysis, Office ([id number])on 04-09-2016 Bilirubin Ql (U) Negative Normal Comprehe nsive [facility]; [facility] Work Phone: Glucose Test strip (U) [Mass/Vol] Negative Normal [facility]; [facility] Work Phone: Leukocyte esterase Test strip Ql (U) Negative Normal [facility]; [facility] Work Phone: Nitrite Ql (U) Negative Normal [facility]; [facility] Work Phone: Protein Ql (U) Negative Normal Comprehens [facility]; [facility] Work Phone: BILAT SCRN DIGITAL & CADOrde red By: Furnace Charging Machine Operator on 01-06-2013 BILAT SCRN DIGITAL & CAD See Note Normal [facility] Work Phone: Comment on above: MAMMOGRAPHY - BILATE RAL SCREENING REASON FOR EXAM: Female, 57 years old. Routine annual screeningexamination. PERTINENT HISTORY: Sister with breast cancer. TECHNIQUE: Digital examination. Mediolateral oblique (MLO) andcraniocaudad (CC) views of both breasts were obtained. Rolled lateralviewof the right breast was obtained as well. CAD: CAD was performed on thisstudy. COMPARISON: Comparison is made with prior outside examination datedNovemb2002. FINDINGS:The breast composition is heterogeneously dense - ranging from 51% to 75%of the breast tissue. There are no dominant masses or suspicious calcifications. No other significant abnormalities are identified. There has been nosignificant change since the prior study. IMPRESSION:Stable bilateral screening mammogram. Yearly follow-up recommended. (A) ASSESSMENT CATEGORY:BIRADS Category 2: Benign finding(s). A letter regarding these resultswill be sent to the patient by the facility within 30 days. Approximately 10% of breast cancers are not detected by mammography. Anormal mammogram should not delay biopsy of a clinically suspiciousabnormality. Signed:Kurt Joy M.D.January 06, 2013 at 8:33:23 AM [id number] Signed GP/GP If you are the referring physician and would like to consult with theradiologist who provided this interpretation, please contact Michael Dewitt at [phone]. If this radiologist is unavailable, youwill be directed to another radiologist to assist. If you are a patient with a question regarding this report, pleasecontactyour referring physician directly. Professional Interpretation Provided By: Anywhere to Go, Phone , These documents contain legally protected and confidential healthinformation intended only for the use of the individual or entity namedabove. If you are not the intended recipient, you are hereby notifiedthatany disclosure, copying, distribution, or other use of these documents isstrictly prohibited. If you have received this information in error,pleasenotify the sender immediately and arrange for the return or destructionofthese documents. Dictated on 01/06/13 5590 by Talita Joy MDranscribed on 01/06/13 1337 by ITS IMPORTSign by Kurt Joy MD on 01/06/13 1338 Sign by: Kurt Joy MD ELBOW MIN 3 VIEWSOrdered By: Furnace Charging Machine Operator on 11-17-2012 ELBOW MIN 3 VIEWS See Note Normal Compreh ensive [facility] Medicine Work Phone: Comment on above: PROCEDURE: X-RAY - L EFT ELBOW REASON FOR EXAM: Female, 57 years old. Elbow pain. TECHNIQUE: Three views of the elbow. COMPARISON: None. FINDINGS:There appears to be some bony demineralization. No factors ordislocationsare demonstrated. No appreciable spur formation is observed. IMPRESSION:Slight bony demineralization suspected. Signed:Tremayne Craft M.D.November 17, 2012 at 1:54:13 PM [id number] Signed RU/RU If you are the referring physician and would like to consult with theradiologist who provided this interpretation, please contact Michael Cruz at [phone]. If this radiologist is unavailable, youwillbe directed to another radiologist to assist. If you are a patient with a question regarding this report, pleasecontactyour referring physician directly. Professional Interpretation Provided By: Anywhere [employer], Phone , These documents contain legally protected and confidential healthinformation intended only for the use of the individual or entity namedabove. If you are not the intended recipient, you are hereby notifiedthatany disclosure, copying, distribution, or other use of these documents isstrictly prohibited. If you have received this information in error,pleasenotify the sender immediately and arrange for the return or destructionofthese documents. Dictated on 11/17/12 1354 by Tremayne CraftTranscribed on 11/17/12 1404 by ITS IMPORTSign by Tremayne Craft on 11/17/12 1405 Sign by: Tremayne Craft PROCEDURE: X-RAY - L EFT SHOULDER REASON FOR EXAM: Female, 57 years old. Popping sensation left shoulder TECHNIQUE: Four views of the shoulder. COMPARISON: None FINDINGS:No fractures or dislocations are observed. There is a 1.9-cm calcificdensity which lies just superior to the greater tuberosity of thehumerus.This appears to be large calcification in the distal supraspinatustendon.This often has association with chronic rotator cuff disease. Correlateclinically. No appreciable spur formation is observed. IMPRESSION:Large calcification identified distal supraspinatus tendon. This couldhave association with rotator cuff disease. Correlate clinically. Signed:Tremayne Craft M.D.November 17, 2012 at 1:57:46 PM [id number] Signed RU/RU If you are the referring physician and would like to consult with theradiologist who provided this interpretation, please contact Michael Cruz at [phone]. If this radiologist is unavailable, youwillbe directed to another radiologist to assist. If you are a patient with a question regarding this report, pleasecontactyour referring physician directly. Professional Interpretation Provided By: Anywhere to Go, Phone , These documents contain legally protected and confidential healthinformation intended only for the use of the individual or entity namedabove. If you are not the intended recipient, you are hereby notifiedthatany disclosure, copying, distribution, or other use of these documents isstrictly prohibited. If you have received this information in error,pleasenotify the sender immediately and arrange for the return or destructionofthese documents. Dictated on 11/17/12 1357 by Tremayne CraftTranscribed on 11/17/12 1432 by ITS IMPORTSign by Tremayne Craft on 11/17/12 1433 Sign by: Tremayne Craft CERV SPINE 4 OR 5 VIEWSOrder ed By: Furnace Charging Machine Operator on 11-05-2012 CERV SPINE 4 OR 5 VIEWS See Note Normal [facility] Work Phone: Comment on above: PROCEDURE: X-RAY - C ERVICAL SPINE REASON FOR EXAM: Female, 57 years old. Cervical radiculopathy TECHNIQUE: Six views of the cervical spine were obtained. COMPARISON: None FINDINGS:Normal craniovertebral junction. Normal anterior atlantoaxialarticulation. Normal odontoid process. Normal cervical lordosis. Normal vertebral bodies and posterior osseouselements. Normal disc space heights and vertebral endplates. Minimal uncovertebralspurring bilaterally at C5-6 slightly narrowing the intervertebralneuroforamina. Normal visualized soft tissue structures. IMPRESSION:Minimal degenerative changes at C5-6. Signed:Willi Winston D.O.November 05, 2012 at 7:52:08 PM [id number] Signed IF/IF If you are the referring physician and would like to consult with theradiologist who provided this interpretation, please contact Willi Winston D.O.at [phone]. If this radiologist is unavailable, you will be directedto another radiologist to assist. If you are a patient with a question regarding this report, pleasecontactyour referring physician directly. Professional Interpretation Provided By: Anywhere to Go, Phone , These documents contain legally protected and confidential healthinformation intended only for the use of the individual or entity namedabove. If you are not the intended recipient, you are hereby notifiedthatany disclosure, copying, distribution, or other use of these documents isstrictly prohibited. If you have received this information in error,pleasenotify the sender immediately and arrange for the return or destructionofthese documents. Dictated on 11/05/12930 by Patricia Winston DOranscribed on 11/05/121953 by ITS IMPORTSign by Willi Winston DO on 11/05/121954 Sign by: Willi Winston DO Microscopic ExaminationOrder ed By: Furnace Charging Machine Operator on 02-20-2010 Bacteria LM.HPF (Urine sed) [#/Area] Few Normal Comprehensi ve Internal Medicine Work Phone: Comment on above: PERFORMED BY: [employer] [address] [id number] Epithelial cells LM.HPF (Urine sed) [#/Area] 0-10 Normal 0 - 10 [facility] Work Phone: Comment on above: PERFORMED BY: [employer] [facility] ScienceHay[facility] Center [id number] Mucus Ql (Urine sed) Present Normal Comp rehensive Internal Medicine Work Phone: Comment on above: PERFORMED BY: PitchBook DataHaywood Regional Medical Center [id number] RBC LM.HPF (Urine sed) [#/Area] 0-3 Normal 0 - 3 [facility] Work Phone: Comment on above: PERFORMED BY: [facility]itchBook DataHaywood [facility] Center [id number] WBC LM.HPF (Urine sed) [#/Area] /[HPF] Abnormal 0 - 5 [facility] Work Phone: Comment on above: PERFORMED BY: [facility]itchBook DataHay[facility] [id number] Urinalysis, Office ([id number])Or dered By: Marie Gamez on 02-20-2010 Bilirubin Ql (U) Small Normal Comprehe nsive [facility] Medicine Work Phone: Glucose Test strip (U) [Mass/Vol] Negative Normal [facility] Work Phone: Hemoglobin Ql (U) Non Hemolyzed Trace Normal [facility] Work Phone: Ketones Ql (U) Small Normal Comprehens [facility] Work Phone: Comment on above: 15 Leukocyte esterase Test strip Ql (U) Moderate Normal [facility] Work Phone: Nitrite Ql (U) Negative Normal Comprehens [facility] Work Phone: Comment on above: PERFORMED BY: [employer] [facility] ScienceHay[facility] [id number] Information: SRC: URINE Protein Ql (U) 30 mg/dL Normal Comprehens [facility] Work Phone: Specific gravity (U) [Rel density] 1.025 1 Normal [facility] Work Phone: Urobilinogen (24H U) [Mass/Time] 2 mg/dL Normal [facility] Work Phone: Urinalysis, Office ([id number])on 02-20-2010 Glucose Test strip (U) [Mass/Vol] Negative Normal [facility]; [facility] Work Phone: Nitrite Ql (U) Negative Normal Comprehens [facility]; [facility] Work Phone: Urinalysis, RoutineOrdered B y: Furnace Charging Machine Operator on 02-20-2010 Appearance (U) Clear Normal Comprehens [facility] Work Phone: Comment on above: PERFORMED BY: [facility] DataHay[facility] [id number] Information: SRC: URINE Bilirubin Ql (U) Negative Normal Comprehe nsive [facility] Medicine Work Phone: Comment on above: PERFORMED BY: [facility] DataHay[facility] [id number] Information: SRC: URINE Color (U) Yellow Normal [facility] Work Phone: Comment on above: PERFORMED BY: [facility] DataHay[facility] [id number] Information: SRC: URINE Glucose Ql (U) Negative Normal Comprehens [facility] Work Phone: Comment on above: PERFORMED BY: [facility] DataHay[facility] [id number] Information: SRC: URINE Hemoglobin Ql (U) Trace Abnormal Compreh ensive [facility] Medicine Work Phone: Comment on above: PERFORMED BY: [facility] DataHay[facility] [id number] Information: SRC: URINE Ketones Ql (U) 1+ Abnormal Comprehens d[facility] Work Phone: Comment on above: PERFORMED BY: [facility] DataHay[facility] [id number] Information: SRC: URINE Leukocyte esterase Test strip Ql (U) 2+ Abnormal [facility] Work Phone: Comment on above: PERFORMED BY: [facility] DataHay[facility] [id number] Information: SRC: URINE Microscopic observation LM Nom (Urine sed) See below: Normal [facility] Work Phone: Comment on above: PERFORMED BY: [employer]6370 [facility] [id number] Information: SRC: URINE pH (U) 6.0 [pH] Normal [facility] Work Phone: Comment on above: PERFORMED BY: [employer] [place] [address] [id number] Information: SRC: URINE Protein Ql (U) 1+ Abnormal Comprehens d[facility] Work Phone: Comment on above: PERFORMED BY: [employer] [place] [address] [id number] Information: SRC: URINE Specific gravity (U) [Rel density] 1.027 1 Normal 1.005-1.03 0 [facility] Work Phone: Comment on above: PERFORMED BY: [facility]idelin6370 [facility] [id number] Information: SRC: URINE Urobilinogen Test strip (U) [Mass/Vol] 0.2 mg/dL Normal 0.0-1.9 Comprehensi Internal Medicine Work Phone: Comment on above: PERFORMED BY: [employer] [id number] Information: SRC: URINE Urine Culture, RoutineOrdere d By: Furnace Charging Machine Operator on 02-20-2010 Bacteria identified Cx Nom (U) Final report Normal [facility] Work Phone: Comment on above: PERFORMED BY: [address] [facility] [id number] Bacteria identified Cx Nom (U) No growth Normal [facility] Work Phone: Comment on above: PERFORMED BY: [address] [facility] [id number] Pap IG, Ct-Ng, rfx HPV allOr dered By: Furnace Charging Machine Operator on 09-15-2009 C. trachomatis rRNA RAFAELA+probe Ql (Cvx) Negative Normal [facility] Work Phone: Comment on above: Source.............C ervical;EndocervicalNo. of containers..01 CYTYC Thin Prep VialPERFORMED BY: Treedom Zzxhgmhjld[address]jessyCardinal Cushing Hospital [id number] BY: =G LabShareThis Ckygstnudn[address] StreetjessyCardinal Cushing Hospital [id number] Information: [id number] Microscopic observation Other stain Nom (Unsp spec) . Normal [facility] Work Phone: Comment on above: Source.............C ervical;EndocervicalNo. of containers..01 CYTYC Thin Prep VialPERFORMED BY: Treedom Qvkgplgfmc88859 H[address] StreetWandySt. Luke's University Health Network [id number] BY: =G Treedom Dldauqhe[address] [id number] Information: [id number] N. gonorrhoeae rRNA RAFAELA+probe Ql (Cvx) Negative Normal [facility] Work Phone: Comment on above: Source.............C ervical;EndocervicalNo. of containers..01 CYTYC Thin Prep VialPERFORMED BY: Treedom Eohxmtnhyh[address] [id number] BY: =G Iglu.comSaint [facility] [address]gdj[address] [id number] Information: [id number] Pathology report final diagnosis Narrative [facility] Normal [facility] Work Phone: Comment on above: NEGATIVE FOR INTRAEP ITHELIAL LESION AND MALIGNANCY.Satisfactory for evaluation. Endocervical and/or squamous metaplasticcells (endocervical component) are present.616.89 ; Other inflammatory disease of cervix, vagina and vulvaJulie Omar Whitt, Stonework Supervisor (ASCP) Source.............C ervical;EndocervicalNo. of containers..01 CYTYC Thin Prep VialPERFORMED BY: WB KymShareThis Thanh Trinidad ChrisB[facility] [id number] BY: =G Yasmani Law Trinidad Criselda [place] [id number] Information: [id number] Pap IG, Ct-Ng, rfx HPV all PAPSMR [facility] Work Phone: Comment on above: The Pap smear is a s creening test designed to aid in the detection ofpremalignant and malignant conditions of the uterine cervix. It is not adiagnostic procedure and should not be used as the sole means of detectingcervical cancer. Both false-positive and false-negative reports do occur..This liquid based ThinPrep(R) pap test was screened with theuse of an image guided system.The HPV DNA reflex criteria were not met with this specimen resulttherefore, no HPV testing was performed.. Source.............C ervical;EndocervicalNo. of containers..01 CYTYC Thin Prep VialPERFORMED BY: WB Treedom Thanh Trinidad ChrisB[facility] [id number] BY: =G K[employer]ShareThis Thanh Trinidad ChrisB[facility] [id number] Information: [id number] Culture, urine Bacteria identified Cx Nom (U) Positive [facility] Work Phone: Bacteria identified Cx Nom (U) Mixed Gram Pos & Gram Neg Org [facility] Work Phone: Vital Signs Date Time Vital Sign Value Performing Clinician Facility 09-17-2022 08:05-0400 Body mass index (BMI) [Ratio] 18.24 kg/m2 Jeromy Tapia Work Phone: [facility] Work Phone: 09-17-2022 08:05-0400 Body surface area Derived from formula 1.57 m2 Jeromy Tapia Work Phone: [facility] Work Phone: 09-17-2022 08:05-0400 Body weight 51.26 kg Jeromy A Tapia Work Phone: [facility] Work Phone: 09-17-2022 08:05-0400 Diastolic blood pressure 87 mm[Hg] Jeromy Brandi Taplet Work Phone: [facility] Work Phone: 09-17-2022 08:05-0400 Heart rate 71 /min Jeromy Brandi Taplet Work Phone: [facility] Work Phone: 09-17-2022 08:05-0400 Respiratory rate 16 /min Jeromy A Taplet Work Phone: [facility] Work Phone: 09-17-2022 08:05-0400 Systolic blood pressure 134 mm[Hg] Jeromy Brandi Taplet Work Phone: [facility] Work Phone: 08-12-2022 14:22-0500 Diastolic blood pressure 90 mm[Hg] Jeromy A Taplet Work Phone: [facility] Work Phone: 08-12-2022 14:22-0500 Heart rate 80 /min Jeromy Brandi Taplet Work Phone: [facility] Work Phone: 08-12-2022 14:22-0500 Respiratory rate 16 /min Jeromy Brandi Taplet Work Phone: [facility] Work Phone: 08-12-2022 14:22-0500 Systolic blood pressure 155 mm[Hg] Jeromy Brandi Taplet Work Phone: [facility] Work Phone: 08-12-2022 13:41-0500 Body mass index (BMI) [Ratio] 17.92 kg/m2 Jeromy A Tapia Work Phone: [facility] Work Phone: 08-12-2022 13:41-0500 Body surface area Derived from formula 1.56 m2 Jeromy A Taplet Work Phone: [facility] Work Phone: 08-12-2022 13:41-0500 Body weight 50.35 kg Jeromy A Taplet Work Phone: [facility] Work Phone: 08-12-2022 13:41-0500 Diastolic blood pressure 85 mm[Hg] Jeromy A Taplet Work Phone: [facility] Work Phone: 08-12-2022 13:41-0500 Heart rate 91 /min Jeromy A Taplet Work Phone: [facility] Work Phone: 08-12-2022 13:41-0500 Respiratory rate 16 /min Jeromy A Taplet Work Phone: [facility] Work Phone: 08-12-2022 13:41-0500 Systolic blood pressure 153 mm[Hg] Jeromy A Taplet Work Phone: [facility] Work Phone: 08-06-2022 11:56-0500 Diastolic blood pressure 84 mm[Hg] Jeromy Brandi Taplet Work Phone: [facility] Work Phone: 08-06-2022 11:56-0500 Heart rate 76 /min Jeromy Brandi Taplet Work Phone: [facility] Work Phone: 02-07-2023 11:56-0500 Respiratory rate 16 /min Jeromy A Taplet Work Phone: [facility] Work Phone: 08-06-2022 11:56-0500 Systolic blood pressure 169 mm[Hg] Jeromy Paz Taplet Work Phone: [facility] Work Phone: 08-06-2022 11:01-0500 Body height 167.64 cm Jeromy A Taplet Work Phone: [facility] Work Phone: 08-06-2022 11:01-0500 Body mass index (BMI) [Ratio] 18.11 kg/m2 Jeromy Paz [employer] Work Phone: [facility] Work Phone: 08-06-2022 11:01-0500 Body surface area Derived from formula 1.56 m2 Jeromy A Taplet Work Phone: [facility] Work Phone: 08-06-2022 11:01-0500 Body weight 50.89 kg Jeromy Paz [employer] Phone: [facility] Work Phone: 08-06-2022 11:01-0500 Diastolic blood pressure 84 mm[Hg] Jeromy Paz Taplet Work Phone: [facility] Work Phone: 08-06-2022 11:01-0500 Heart rate 81 /min Jeromy Paz [employer] Phone: [facility] Work Phone: 08-06-2022 11:01-0500 Respiratory rate 16 /min Jeromy Paz [employer] Phone: [facility] Work Phone: 08-06-2022 11:01-0500 Systolic blood pressure 160 mm[Hg] Jeromy Paz [employer] Work Phone: [facility] Work Phone: 06-18-2022 08:51-0500 Body mass index (BMI) [Ratio] 18.04 kg/m2 Jeromy Tapia Work Phone: [facility] Work Phone: 06-18-2022 08:51-0500 Body surface area Derived from formula 1.56 m2 Jeromy A Tapia Work Phone: [facility] Work Phone: 06-18-2022 08:51-0500 Body weight 50.71 kg Jeromy Paz [employer] Work Phone: [facility] Work Phone: 06-18-2022 08:51-0500 Diastolic blood pressure 81 mm[Hg] Jeromy Paz [employer] Work Phone: [facility] Work Phone: 06-18-2022 08:51-0500 Heart rate 86 /min Jeromy Paz [employer] Work Phone: [facility] Work Phone: 06-18-2022 08:51-0500 Respiratory rate 16 /min Jeromy Paz [employer] Work Phone: [facility] Work Phone: 06-18-2022 08:51-0500 Systolic blood pressure 154 mm[Hg] Jeromy Paz [employer] Work Phone: [facility] Work Phone: 09-10-2021 08:56-0400 Diastolic blood pressure 80 mm[Hg] Anaid A [employer] Work Phone: [facility] Work Phone: 09-10-2021 08:56-0400 Heart rate 65 /min Anaid A Fast Work Phone: [facility] Work Phone: 09-10-2021 08:56-0400 Systolic blood pressure 158 mm[Hg] Anaid A [employer] Work Phone: [facility] Work Phone: 09-10-2021 08:27-0400 Body mass index (BMI) [Ratio] 18.88 kg/m2 Anaid A [employer] Work Phone: [facility] Work Phone: 09-10-2021 08:27-0400 Body surface area Derived from formula 1.59 m2 Anaid A [employer] Work Phone: [facility] Work Phone: 09-10-2021 08:27-0400 Body weight 53.07 kg Anaid A [employer] Work Phone: [facility] Work Phone: 09-10-2021 08:27-0400 Diastolic blood pressure 87 mm[Hg] Anaid A [employer] Work Phone: [facility] Work Phone: 09-10-2021 08:27-0400 Heart rate 76 /min Anaid A [employer] Work Phone: [facility] Work Phone: 09-10-2021 08:27-0400 Respiratory rate 16 /min Anaid A [employer] Work Phone: [facility] Work Phone: 09-10-2021 08:27-0400 Systolic blood pressure 137 mm[Hg] Anaid A [employer] Work Phone: [facility] Work Phone: 06-15-2021 10:08-0500 Body height 165.74 cm Drew Gutierrez LPN [facility]; [facility] Work Phone: 06-15-2021 10:08-0500 Body mass index (BMI) [Ratio] 19.02 kg/m2 Drew Gutierrez LPN [facility]; [facility] Work Phone: 06-15-2021 10:08-0500 Body surface area Derived from formula 1.57 m2 Drew Gutierrez LPN [facility]; [facility] Work Phone: 06-15-2021 10:08-0500 Body temperature 97.8 [degF] Drew Gutierrez LPN [facility]; [facility] Work Phone: Comment on above: Method: Infrared 06-15-2021 10:08-0500 Body weight 52.25 kg Drew Gutierrez LPN [facility]; [facility] Work Phone: 06-15-2021 10:08-0500 Diastolic blood pressure 78 mm[Hg] Drew Gutierrez LPN [facility]; [facility] Work Phone: Comment on above: Patient Position: Sitting; Cuff Location : Left Arm; Cuff Size: Standard 06-15-2021 10:08-0500 Heart rate 94 /min Drew Gutierrez LPN [facility]; [facility] Work Phone: Comment on above: Pattern: Regular 06-15-2021 10:08-0500 Respiratory rate 16 /min Drew Gutierrez LPN [facility]; [facility] Work Phone: Comment on above: Pattern: Unlabored 06-15-2021 10:08-0500 SaO2% (BldA) [Mass fraction] 97 % Drew Gutierrez LPN [facility]; [facility] Work Phone: Comment on above: Room air 06-15-2021 10:08-0500 Systolic blood pressure 128 mm[Hg] Drew Gutierrez LPN [facility]; [facility] Work Phone: Comment on above: Patient Position: Sitting; Cuff Location : Left Arm; Cuff Size: Standard 05-22-2021 09:01-0500 Diastolic blood pressure 86 mm[Hg] Anaid A Fast Work Phone: [facility] Work Phone: 05-22-2021 09:01-0500 Systolic blood pressure 145 mm[Hg] Anaid A [employer] Work Phone: [facility] Work Phone: 05-22-2021 08:27-0500 Body height 167.64 cm Anaid A [employer] Work Phone: [facility] Work Phone: 05-22-2021 08:27-0500 Body mass index (BMI) [Ratio] 19.05 kg/m2 Anaid A [employer] Work Phone: [facility] Work Phone: 05-22-2021 08:27-0500 Body surface area Derived from formula 1.6 m2 Anaid A [employer] Work Phone: [facility] Work Phone: 05-22-2021 08:27-0500 Body temperature 97.4 [degF] Anaid A [employer] Work Phone: [facility] Work Phone: 05-22-2021 08:27-0500 Body weight 53.52 kg Anaid A [employer] Work Phone: [facility] Work Phone: 05-22-2021 08:27-0500 Diastolic blood pressure 82 mm[Hg] Anaid A [employer] Work Phone: [facility] Work Phone: 05-22-2021 08:27-0500 Heart rate 73 /min Anaid A [employer] Work Phone: [facility] Work Phone: 05-22-2021 08:27-0500 Respiratory rate 12 /min Anaid A [employer] Work Phone: [facility] Work Phone: 05-22-2021 08:27-0500 Systolic blood pressure 141 mm[Hg] Anaid A [employer] Work Phone: [facility] Work Phone: 11-20-2020 09:10-0400 Diastolic blood pressure 89 mm[Hg] Anaid A [employer] Work Phone: [facility] Work Phone: 11-20-2020 09:10-0400 Systolic blood pressure 155 mm[Hg] Anaid A [employer] Work Phone: [facility] Work Phone: 11-20-2020 08:31-0400 Body height 167.64 cm Anaid A [employer] Work Phone: [facility] Work Phone: 11-20-2020 08:31-0400 Body mass index (BMI) [Ratio] 19.05 kg/m2 Anaid A [employer] Work Phone: [facility] Work Phone: 11-20-2020 08:31-0400 Body surface area Derived from formula 1.6 m2 Anaid A [employer] Work Phone: [facility] Work Phone: 11-20-2020 08:31-0400 Body temperature 98 [degF] Anaid A [employer] Work Phone: [facility] Work Phone: 11-20-2020 08:31-0400 Body weight 53.52 kg Anaid A [employer] Work Phone: [facility] Work Phone: 11-20-2020 08:31-0400 Diastolic blood pressure 78 mm[Hg] Anaid A [employer] Work Phone: [facility] Work Phone: 11-20-2020 08:31-0400 Heart rate 66 /min Anaid A [employer] Work Phone: [facility] Work Phone: 11-20-2020 08:31-0400 Respiratory rate 12 /min Anaid A Fast Work Phone: [facility] Work Phone: 11-20-2020 08:31-0400 Systolic blood pressure 133 mm[Hg] Anaid A [employer] Work Phone: [facility] Work Phone: 09-04-2017 09:25-0500 BMI (Body Mass Index) 19.65 kg/m2 Drew Gutierrez LPN [facility] Work Phone: 09-04-2017 09:25-0500 Body Temperature 97.9 [degF] Drew Gutierrez LPN [facility] Work Phone: 09-04-2017 09:25-0500 Body weight 53.98 kg Drew Gutierrez LPN [facility] Work Phone: 09-04-2017 09:25-0500 BP Diastolic 80 mm[Hg] Drew Gutierrez LPN [facility] Work Phone: Comment on above: Patient Position: Sitting; Cuff Location : Left Arm; Cuff Size: Standard 09-04-2017 09:25-0500 BP Systolic 126 mm[Hg] Drew Gutierrez LPN [facility] Work Phone: Comment on above: Patient Position: Sitting; Cuff Location : Left Arm; Cuff Size: Standard 09-04-2017 09:25-0500 BSA (Body Surface Area) 1.59 m2 Drew Gutierrez LPN [facility] Work Phone: 09-04-2017 09:25-0500 Height 165.74 cm Drew Gutierrez LPN [facility] Work Phone: 09-04-2017 09:25-0500 Pulse (Heart Rate) 85 /min Drew Gutierrez [facility] Work Phone: Comment on above: Pattern: Regular 09-04-2017 09:25-0500 Pulse Oximetry 98 % Hollis Choi [facility] Work Phone: Comment on above: Room air 03-08-2018 09:25-0500 Respiratory Rate 18 /min Drew Gutierrez LPN [facility] Work Phone: Comment on above: Pattern: Unlabored 09-04-2017 09:25-0500 SaO2% (BldA) [Mass fraction] 98 % Drew Gutierrez LPN [facility]; [facility] Work Phone: Comment on above: Room air 09-04-2017 09:25-0500 Weight 53.98 kg Hollis Steph [facility] Work Phone: 04-09-2016 12:00-0400 BMI (Body Mass Index) 19.65 kg/m2 Aura Chi RN [facility] Work Phone: 04-09-2016 12:00-0400 Body Temperature 98 [degF] Aura Chi RN [facility] Work Phone: Comment on above: Method: Temporal 04-09-2016 12:00-0400 Body weight 53.98 kg Aura Chi RN [facility] Work Phone: 04-09-2016 12:00-0400 BP Diastolic 74 mm[Hg] Aura L Alon RN [facility] Work Phone: Comment on above: Patient Position: Sitting; Cuff Location : Left Arm; Cuff Size: Standard 04-09-2016 12:00-0400 BP Systolic 132 mm[Hg] Aura L Alon KATHLEEN [facility] Work Phone: Comment on above: Patient Position: Sitting; Cuff Location : Left Arm; Cuff Size: Standard 04-09-2016 12:00-0400 BSA (Body Surface Area) 1.59 m2 Aura Chi RN [facility] Work Phone: 04-09-2016 12:00-0400 Height 165.74 cm Aura Chi RN [facility] Work Phone: 04-09-2016 12:00-0400 Pulse (Heart Rate) 79 /min Aura Chi RN [facility] Work Phone: Comment on above: Pattern: Regular 04-09-2016 12:00-0400 Pulse Oximetry 97 % [facility] Work Phone: Comment on above: Room air 04-09-2016 12:00-0400 Respiratory Rate 16 /min Aura Chi RN [facility] Work Phone: Comment on above: Pattern: Unlabored 04-09-2016 12:00-0400 SaO2% (BldA) [Mass fraction] 97 % Aura Chi RN [facility]; [facility] Work Phone: Comment on above: Room air 04-09-2016 12:00-0400 Weight 53.98 kg [facility] Work Phone: 01-06-2015 13:28-0400 BMI (Body Mass Index) 19.65 kg/m2 [facility] Work Phone: 01-06-2015 13:28-0400 Body weight 53.98 kg [facility] Work Phone: 01-06-2015 13:28-0400 BP Diastolic 78 mm[Hg] [facility] Work Phone: Comment on above: Patient Position: Sitting; Cuff Location : Left Arm; Cuff Size: Standard 01-06-2015 13:28-0400 BP Systolic 116 mm[Hg] [facility] Work Phone: Comment on above: Patient Position: Sitting; Cuff Location : Left Arm; Cuff Size: Standard 01-06-2015 13:28-0400 BSA (Body Surface Area) 1.59 m2 [facility] Work Phone: 01-06-2015 13:28-0400 Height 165.74 cm [facility] Work Phone: 01-06-2015 13:28-0400 Pulse (Heart Rate) 75 /min [facility] Work Phone: Comment on above: Pattern: Regular 01-06-2015 13:28-0400 Pulse Oximetry 97 % [facility] Work Phone: Comment on above: Room air 01-06-2015 13:28-0400 Respiratory Rate 18 /min Hollis Choi [facility] Work Phone: Comment on above: Pattern: Unlabored 01-06-2015 13:28-0400 SaO2% (BldA) [Mass fraction] 97 % Hollis Choi MD Work Phone: [facility]; [facility] Work Phone: Comment on above: Room air 01-06-2015 13:28-0400 Weight 53.98 kg Hollis Steph [facility] Work Phone: 01-06-2015 12:57-0400 BMI (Body Mass Index) 20.81 kg/m2 Aura Chi RN [facility] Work Phone: 01-06-2015 12:57-0400 Body weight 57.15 kg Aura Chi RN [facility] Work Phone: 01-06-2015 12:57-0400 BSA (Body Surface Area) 1.63 m2 Aura Chi RN [facility] Work Phone: 01-06-2015 12:57-0400 Height 165.74 cm Aura Chi RN [facility] Work Phone: 01-06-2015 12:57-0400 Weight 57.15 kg Hollis Choi [facility] Work Phone: 11-04-2012 11:24-0400 BMI (Body Mass Index) 20.81 kg/m2 Christine Mckeon [facility] Work Phone: 11-04-2012 11:24-0400 Body Temperature 98.5 [degF] Christine Mckeon [facility] Work Phone: 11-04-2012 11:24-0400 Body weight 57.15 kg Christine Mckeon [facility] Work Phone: 11-04-2012 11:24-0400 BP Diastolic 90 mm[Hg] Christine Mckeon [facility] Work Phone: Comment on above: Patient Position: Sitting; Cuff Location : Left Arm; Cuff Size: Standard 11-04-2012 11:24-0400 BP Systolic 138 mm[Hg] Christine Mckeon [facility] Work Phone: Comment on above: Patient Position: Sitting; Cuff Location : Left Arm; Cuff Size: Standard 11-04-2012 11:24-0400 BSA (Body Surface Area) 1.63 m2 Christine Llanosvika [facility] Work Phone: 11-04-2012 11:24-0400 Height 165.74 cm Christine Linad [facility] Work Phone: 11-04-2012 11:24-0400 Pulse (Heart Rate) 76 /min Christine Mckeon [facility] Work Phone: Comment on above: Pattern: Regular 11-04-2012 11:24-0400 Respiratory Rate 16 /min Christine Llanosvika [facility] Work Phone: Comment on above: Pattern: Unlabored 11-04-2012 11:24-0400 Weight 57.15 kg Hollislos Choi [facility] Work Phone: 03-01-2010 14:54-0400 Body Temperature 98.2 [degF] [facility] Work Phone: Comment on above: Method: Oral 03-01-2010 14:54-0400 BP Diastolic 70 mm[Hg] [facility] Work Phone: Comment on above: Patient Position: Sitting; Cuff Location : Left Arm; Cuff Size: Standard 03-01-2010 14:54-0400 BP Systolic 138 mm[Hg] [facility] Work Phone: Comment on above: Patient Position: Sitting; Cuff Location : Left Arm; Cuff Size: Standard 03-01-2010 14:54-0400 Pulse (Heart Rate) 74 /min [facility] Work Phone: Comment on above: Pattern: Regular 03-01-2010 14:54-0400 Respiratory Rate 18 /min [facility] Work Phone: Comment on above: Pattern: Unlabored 02-20-2010 10:01-0400 Body Temperature 99.1 [degF] [facility] Work Phone: Comment on above: Method: Oral 02-20-2010 10:01-0400 Body weight 48.11 kg [facility] Work Phone: 02-20-2010 10:01-0400 BP Diastolic 70 mm[Hg] [facility] Work Phone: Comment on above: Patient Position: Sitting; Cuff Location : Left Arm; Cuff Size: Standard 02-20-2010 10:01-0400 BP Systolic 110 mm[Hg] [facility] Work Phone: Comment on above: Patient Position: Sitting; Cuff Location : Left Arm; Cuff Size: Standard 02-20-2010 10:01-0400 Pulse (Heart Rate) 72 /min [facility] Work Phone: Comment on above: Pattern: Regular 02-20-2010 10:01-0400 Respiratory Rate 16 /min [facility] Work Phone: Comment on above: Pattern: Unlabored 02-20-2010 10:01-0400 Weight 48.11 kg [facility] Work Phone: 09-14-2009 14:48-0400 Body Temperature 97.6 [degF] [facility] Work Phone: Comment on above: Method: Oral 09-14-2009 14:48-0400 Body weight 48.11 kg [facility] Work Phone: 09-14-2009 14:48-0400 BP Diastolic 68 mm[Hg] [facility] Work Phone: Comment on above: Patient Position: Sitting; Cuff Location : Left Arm; Cuff Size: Standard 09-14-2009 14:48-0400 BP Systolic 86 mm[Hg] [facility] Work Phone: Comment on above: Patient Position: Sitting; Cuff Location : Left Arm; Cuff Size: Standard 09-14-2009 14:48-0400 Pulse (Heart Rate) 70 /min [facility] Work Phone: Comment on above: Pattern: Regular 09-14-2009 14:48-0400 Respiratory Rate 16 /min [facility] Work Phone: Comment on above: Pattern: Unlabored 09-14-2009 14:48-0400 Weight 48.11 kg [facility] Work Phone: Encounters Encounter Date Encounter Type Care Provider Facility Start: 11-23-2024 End: 11-23-[address] Jeromy Tapia MD Work Phone: [facility] Work Phone: Start: 11-23-2024 End: 11-23-2024 Patient encounter procedure [facility]RE PREVENTION CHIEF-C -[facility]iology [place] Work Phone: Start: 11-23-2024 End: 11-23-2024 ambulatory [facility] FIRE PREVENTION CHIEF Facility:[facility] Start: 10-20-2024 ambulatory [facility] FIRE PREVENTION CHIEF Facil ity:[facility] Start: 05-15-2023 End: 05-15-2023 ambulatory [facility] Work Phone: Start: 05-15-2023 End: 05-15-2023 Patient encounter procedure [facility], [facility] Work Phone: Start: 05-13-2023 End: 05-13-2023 ambulatory [facility] Work Phone: Start: 05-13-2023 End: 05-13-2023 Patient encounter procedure [facility], [facility] Work Phone: Start: 05-09-2023 End: 05-09-2023 Patient encounter procedure [facility], [facility] Start: 04-22-2023 End: 04-22-2023 Patient encounter procedure [facility], [place] Work Phone: Start: 04-15-2023 End: 04-15-2023 Emergency department patient visit FABIEN AMAYA [facility] Start: 04-09-2023 End: 04-09-2023 ambulatory [facility] Work Phone: Start: 04-09-2023 End: 04-09-2023 Patient encounter procedure [facility] Work Phone: Start: 09-17-2022 Patient encounter procedure Jeromy Tapia Work Phone: [facility] Work Phone: Start: 08-12-2022 Patient encounter procedure Jeromy Tapia Work Phone: [facility] Work Phone: Start: 08-06-2022 Patient encounter procedure Jeromy Tapia Work Phone: [facility] Work Phone: Start: 07-09-2022 Chart Update Jeromy Tapia Work Phone: [facility] Work Phone: Start: 07-05-2022 AUDIT Jeromy Tapia Work Phone: [facility] Work Phone: Start: 06-25-2022 End: 06-25-2022 ambulatory [facility] Work Phone: Start: 06-25-2022 End: 06-25-2022 Patient encounter procedure [facility] Start: 06-18-2022 Patient encounter procedure Jeromy Tapia Work Phone: [facility] Work Phone: Start: 06-12-2022 End: 06-12-2022 ambulatory [facility] Work Phone: Start: 06-12-2022 End: 06-12-2022 Patient encounter procedure [facility] Start: 06-11-[address] Serge Shii [id number] Start: 06-10-2022 AUDIT Anaid Paz Fast Work Phone: [facility] Work Phone: Start: 12-10-2021 End: 12-10-2021 Patient encounter procedure [facility] Start: 09-10-[address] Anaid Paz [facility] Facili ty:[id number] Start: 09-10-2021 Patient encounter procedure Anaid A Fast Work Phone: [facility] Work Phone: Start: 06-20-2021 End: 06-20-2021 Erroneous Entry Hollis Choi MD Work Phone: [facility] Start: 06-18-2021 End: 06-18-2021 Annotation/Addendum Hollis Choi MD Work Phone: [facility] Start: 06-15-2021 End: 06-15-2021 Office outpatient visit 15 minutes Hollis Choi MD Work Phone: [facility] Start: 05-22-2021 Patient encounter procedure Anaid A Fast Work Phone: [facility] Work Phone: Start: 11-20-2020 Patient encounter procedure Anaid A Fast Work Phone: [facility] Work Phone: Start: 09-22-2018 End: 09-23-2018 Patient encounter procedure Serge Bowie Facility:[facility] Start: 09-14-2018 End: 09-21-2018 Patient encounter procedure HILARY NASCIMENTO [facility] Start: 09-02-2018 End: 09-02-2018 Annotation/Addendum Hollis Choi [facility] Start: 08-27-2018 End: 08-27-2018 Annotation/Addendum Hollis Choi [facility] Start: 05-04-2018 End: 05-05-2018 Patient encounter procedure Serge Jamir Facility:[facility] Start: 02-03-2018 End: 02-04-2018 Patient encounter procedure Serge Bowie Facility:[facility] Start: 11-04-2017 End: 11-05-2017 [facility] Start: 09-04-2017 End: 09-04-2017 Office outpatient visit 15 minutes Hollis Ala [facility] Start: 06-25-2016 End: 06-25-2016 Phone Encounter Hollis Ala [facility] Start: 04-09-2016 End: 04-09-2016 Patient encounter procedure Hollis Ala [facility] Start: 01-06-2015 End: 01-06-2015 Office outpatient visit 15 minutes Hollis Ala [facility] Start: 01-05-2013 End: 01-05-2013 Phone Encounter Hollis Ala [facility] Start: 12-01-2012 End: 12-01-2012 Patient encounter procedure Hollis Ala [facility] Start: 11-09-2012 End: 11-09-2012 Phone Encounter Hollis Ala [facility] Start: 11-04-2012 End: 11-08-2012 Patient encounter procedure Hollis Ala [facility] Start: 03-01-2010 End: 03-02-2010 Patient encounter procedure Hollis Ala [facility] Start: 02-20-2010 End: 02-20-2010 [facility] Start: 10-05-2009 End: 10-05-2009 Phone Encounter Hollis Ala [facility] Start: 09-14-2009 End: 09-14-2009 [facility] Procedures Date Procedure Procedure Detail Performing Clinician Start: 11-23-[address] Jeromy Tapia MD Work Phone: Start: 11-23-2024 Plain X-ray abdomen Dr. Jeromy Tapia MD Work Phone: Start: 05-13-2023 Radionuclide imaging of liver and/or biliary tract using radioactive isotope Start: 04-09-2023 Bacteria identified in Urine by Culture Start: 04-09-2023 Urine culture Start: 07-12-2022 Local anesthetic fac et joint nerve block Jeromy Tapia Work Phone: Comment on above: Bilat C3-C5 MBB; Start: 06-12-2022 Screening mammography Start: 08-28-2018 End: 08-28-2018 Breast Limited Unilateral Comments: See Note; NOTES: [facility] Imaging Services [address] [place] [address] Breast Limited Unilateral MR#: [id number] Acct: [id number] Name: DUSTIN TRACY Rep #: [id number] : 1955 F 63 From: Kurt Joy MD PCP: Anaid Benitez DO Status: REG CLI Study: Breast Limited Unilateral Date of Exam: 08/28/18 Exam# [id number] Ordering Dr: Marycruz Waller FIRE PREVENTION CHIEF-C STUDY: ULTRASOUND BREAST - RIGHT REASON FOR EXAM: Female, 63 years old. Abnormal screening mammogram. TECHNIQUE: Axial and longitudinal images of the RIGHT breast were performed with a high resolution ultrasound transducer. COMPARISON: Comparison is made with prior mammogram dated August 27, 2018. FINDINGS: RIGHT Breast: The mammographic abnormality corresponds to a 4 mm x 4 mm x 1 mm cyst at the 8:00 position of the breast at 2 cm from the nipple. US/Breast Limited Unilateral IMPRESSION: 4 mm x 4 mm x 1 mm cyst at the 8:00 position of the breast at 2 cm from the nipple. ASSESSMENT CATEGORY: BIRADS Category 2: Benign. A letter regarding these results will be sent to the patient by the facility within 30 days. Electronically Signed: Kurt Joy, at 15:38 EST , Service support , CC: Marycruz Waller FIRE PREVENTION CHIEF; Anaid Benitez DO Ticket Printer: Signed Marycruz Waller Work Phone: Start: 08-27-2018 End: 08-27-2018 SCREENING MAMM (CAD), BILAT Comments: See Note; NOTES: [facility] Imaging Services [address] [place] [address] SCREENING MAMM (CAD), BILAT MR#: [id number] Acct: [id number] Name: DUSTIN TRACY Rep #: [id number] : 1955 F 63 From: Kurt Joy MD PCP: Anaid Benitez DO Status: REG CLI Study: SCREENING MAMM (CAD), BILAT Date of Exam: 08/27/18 Exam# [id number] Ordering Dr: Marycruz Waller FIRE PREVENTION CHIEF-Bria MAMMOGRAPHY - BILATERAL SCREENING REASON FOR EXAM: Female, 63 years old. Routine annual screening examination. PERTINENT HISTORY: Non-contributory. TECHNIQUE: Digital bilateral breast liya (3D mammographic acquisition) in the CC and MLO projections. 2-D mediolateral oblique (MLO) and craniocaudad (CC) views of both breasts were obtained. CAD: Full Field Digital Mammography with Computer Added Detection was performed. COMPARISON: Comparison is made with the prior examination dated January 06, 2013. FINDINGS: Breast Composition: The breasts are heterogeneously dense, which may obscure small masses. There are no dominant masses or suspicious calcifications. There is a 4.9 mm x 4.4 mm well-defined nodule in the deep mid slightly lateral aspect of the right breast. Correlation with ultrasound is recommended. No other significant abnormalities are identified. BI/SCREENING MAMM (CAD), BILAT IMPRESSION: 4.9 mm x 4.4 mm well-defined nodule in the right breast as described. Correlation with ultrasound is recommended. ASSESSMENT CATEGORY: BIRADS Category 0: Incomplete. Need additional imaging evaluation. A letter regarding these results will be sent to the patient by the facility within 30 days. Approximately 10% of breast cancers are not detected by mammography. A normal mammogram should not delay biopsy of a clinically suspicious abnormality. [id number] Electronically Signed: Kurt Joy, at 12:50 EST , Service support , CC: Marycruz Waller FIRE PREVENTION CHIEF; Anaid Benitez DO Ticket Printer: Signed Marycruz Waller Work Phone: Start: 08-27-2018 End: 08-27-2018 Surgery Visit Report Comments: See Note; NOTES: [facility] [address] [place] [address]. [address] [place] [address] OFFICE VISIT Date of Service: 08/27/18 MR#: [id number] Acct: [id number] Name: DUSTIN TRACY Rep #: [id number] : 1955 Provider: Leon Ricardo MD Age/Sex: 63/F Location: [facility] Status: Signed Intake Intake Visit Reasons: F/U BX L AXILLA Publishing Agent Required: No Allergies ciprofloxacin [From Cipro] Allergy (Mild, Verified 08/27/18 08:56) Unknown penicillin G Allergy (Mild, Verified 08/27/18 08:56) Unknown Penicillins [PCN] Adverse Reaction (Verified 08/27/18 08:56) Other Medications acetaminophen 325 mg tablet 325 mg PO Q6H PRN 08/04/18 [History Confirmed 08/27/18] Subjective Details: 63-year-old female here for ongoing surgical follow-up regarding a tender swelling in the right distal upper arm. She had also had some right axillary adenopathy. She had an injury to her right hand fifth digit. My suspicion all along was that she had adenopathy related to an infection. She was treated with Zithromax. Cat scratch analysis was negative. Most recently on August 20, 2018 I did an ultrasound-guided needle core biopsy of this area. Small amount of purulence emanated there from. Cultures were no growth although she had already had a course of antibiotics. The pathology showed fragments of fibroadipose tissue fibroconnective tissue with focal FAT necrosis and acute chronic inflammation. A focal area suggestive of granuloma formation. Acid-fast bacilli and fungi were negative. The patient notes some mild residual tightness of the upper arm and some slight subclavian soreness. Objective Details: The right upper arm area to me is markedly improved. Previously she had some slight erythema discoloration that has completely resolved. The area where the biopsy was done has completely healed. The area is markedly decompressed. Assessment AND Plan Plan I suspect that her right distal upper arm adenopathy was secondary to an infectious process with overwhelmed lymph nodes. I suspect the right finger injury was the source of entry. The patient seems to be notably improved subsequent to her course of Zithromax and ironically the core biopsy provided drainage. I do not believe that she requires further treatment at this setting. I have reassured her that I would anticipate that the adenopathy will continue to slowly improve. I am not recommending surgical excision at this time. She has had an opportunity to ask and have questions answered. Further surgical follow-up now can be as needed. I very much appreciate the kind opportunity of assisting with her surgical care. CC: Dr. Anaid Ricardo M.D., F.A.C.S. Coding Level of Care Code Off vis,est,level 2 08/27/18 0919 <Electronically signed by Leon Ricardo MD> Date Leon Ricardo MD Cosigner Signature: Date (if applicable) CC: Anaid Ospinalos Choi Start: 08-20-2018 End: 08-20-2018 Surgery Visit Report Comments: See Note; NOTES: [facility] [address] [place] [address] OFFICE VISIT Date of Service: 08/20/18 MR#: [id number] Acct: [id number] Name: DUSTIN TRACY Rep #: [id number] : 1955 Provider: Leon Ricardo MD Age/Sex: 63/F Location: [facility] Status: Signed Intake Vital Signs08/20/18 Body Mass Index (BMI) 19.2 08/10/18 Body Mass Index (BMI) 19.2 Intake Visit Reasons: LN biopsy right axilla Allergies ciprofloxacin [From Cipro] Allergy (Mild, Verified 08/04/18 08:44) Unknown penicillin G Allergy (Mild, Verified 08/04/18 08:44) Unknown Penicillins [PCN] Adverse Reaction (Verified 09/13/17 17:49) Other Medications acetaminophen 325 mg tablet 325 mg PO Q6H PRN 08/04/18 [History Confirmed 08/04/18] azithromycin 250 mg tablet See Rx Instructions PO .COMPLEX #6 tab 08/04/18 [Rx Confirmed 08/04/18] PFSH Medical History Adenopathy (Acute) Cervical dystonia (Acute) Surgical History History of surgical removal of skin lesion (Acute) Social History Smoking Status: Never smoker HPI HPI HPI: DUSTIN TRACY, is a 63 F who presents to the office today for ongoing surgical evaluation and treatment for a distal volar right upper arm soft tissue mass felt to be consistent with adenopathy. The patient was treated for suspected cat scratch disease although testing was negative. On August 05, 2018 soft tissue ultrasound suggested for lymph nodes in this area without necrosis. 08/20/18 1529 <Electronically signed by Leon Ricardo MD> Date Leon Ricardo MD Cosigner Signature: Date (if applicable) CC: Hollis Choi Start: 08-05-2018 End: 08-06-2018 Ext Non Vasc Limited/Soft Tiss Comments: See Note; NOTES: [facility] Imaging Services [address] [place] [address] [place] [address] Ext Non Vasc Limited/Soft Tiss MR#: [id number] Acct: [id number] Name: DUSTIN TRACY Rep #: [id number] : 1955 F 63 From: Castillo Jama MD PCP: Anaid Benitez DO Status: REG CLI Study: Ext Non Vasc Limited/Soft Tiss Date of Exam: 08/05/18 Exam# [id number] Ordering Dr: Leon Ricardo MD HISTORY: LUMP ON ANT UPPER RT ARM AND ENLARGED NODE IN AXILLA EXAM/TECHNIQUE: US Upper Extremity, limited, joint or other nonvascular extremity: COMPARISON: None. FINDINGS: # of images incl. paperwork: 35 4 prominent lymph nodes correspond to the palpable abnormalities. A right upper arm lymph node measures 1.2 x 1.3 x 1.0 cm. 3 axillary lymph nodes were measured, 2.1 x 1.5 x 1.1 and 1.9 x 0.7 x 0.9 and 3.4 x 1.3 x 0.9 cm. No lymph node necrosis was evident. The lymph nodes maintain their reniform shape. US/Ext Non Vasc Limited/Soft Tiss IMPRESSION: The palpable abnormalities correspond to mildly prominent lymph nodes. No necrosis. at 0221 Reported and signed by: Castillo Jama MD Electronically Signed: Castillo Jama, at 2:20 EST Tel , Service support , CC: Anaid Benitez DO; Leon Ricardo MD Ticket Printer: Signed Kayley Gomez Work Phone: Start: 08-04-2018 End: 08-04-2018 Surgery Visit Report Comments: See Note; NOTES: [facility] [address] [place] [address] OFFICE VISIT Date of Service: 08/04/18 MR#: [id number] Acct: [id number] Name: DUSTIN TRACY Rep #: [id number] : 1955 Provider: Leon Ricardo MD Age/Sex: 63/F Location: [facility] Status: Signed Intake Vital Signs08/04/18 Height 5 ft 6 in 08/04/18 Weight: 119 lb 08/04/18 Body Mass Index (BMI) 19.2 08/04/18 Respiratory Rate 18 Intake Visit Reasons: Lipoma R Arm Publishing Agent Required: No Is patient in pain?: No Allergies ciprofloxacin [From Cipro] Allergy (Mild, Verified 08/04/18 08:44) Unknown penicillin G Allergy (Mild, Verified 08/04/18 08:44) Unknown Penicillins [PCN] Adverse Reaction (Verified 09/13/17 17:49) Other Medications acetaminophen 325 mg tablet 325 mg PO Q6H PRN 08/04/18 [History Confirmed 08/04/18] azithromycin 250 mg tablet See Rx Instructions PO .COMPLEX #6 tab 08/04/18 [Rx Confirmed 08/04/18] PFSH Medical History Cervical dystonia (Acute) Surgical History History of surgical removal of skin lesion (Acute) Social History Smoking Status: Never smoker HPI HPI HPI: DUSTIN TRACY, is a 63 F who presents to the office today for surgical consultation regarding a possible right upper arm lipoma. The patient was referred by Dr. Penny Winter dermatology. A written copy of my surgical consult recommendations will be returned to her the patient states that on July 19 she developed an injury to her right fifth digit. She was on doing a pop bottle and had a scratch. She then developed some irregular skin and just as of yesterday she had a soft tissue biopsy performed. Her concern however was that she had developed swelling in the right upper arm. There was concern this could be a lipoma versus a lymph node. The item biopsy of the finger was a violaceous nodule. The patient denies any streaking of redness of the right fifth digit hand and forearm. She has not in incurred any cat scratches but she does have cats. She is aware that her tetanus vaccination is out of date. ROS General General: No weight change, appetite, fatigue, colon cancer, breast cancer or weakness HEENT HEENT: No difficulty swallowing, eye injury, eye surgery, swollen glands or hoarseness Endo Endocrine: No thyroid disease, diabetes mellitus, thyroid cancer, Hair loss, heat intolerance or cold intolerance Skin Skin: No rash or changing moles Breast Breast: No left breast lump, right breast lump, nipple discharge, breast pain, abnormal mammogram, abnormal US or breast enlargement Musc Musculoskeletal: Yes arthritis; no back problems, rheumatoid arthritis, gout or joint pain Cardio Cardiovascular: No murmur, pacemaker, heart disease, atrial fibrillation, high blood pressure, heart attack, heart stent, palpitations, shortness of breat with exertion or chest pain Psych Psychiatric: Yes anxiety; no depression or hearing voices Resp Respiratory: No shortness of breath, No sleep apnea, No cough, No COPD, No asthma, No emphysema, No wheezing Gastro Gastrointestinal: No abdominal pain, No nausea or vomiting, No diarrhea, No constipation, No blood in stool, No acid reflux, Yes hemorrhoids, No ulcers, No gallbladder problem, No black,tarry stools Turner Hematologic: No blood thinners, No blood disorders, No bleeding, No anemia, No blood clots Neuro Neurologic: No system reviewed and no additional complaints, except as docu, No as per HPI, No abnormal walking, No abnormal hearing, No abnormal movements, No abnormal speech, No behavioral changes, No burning sensations, No confusion, No seizure-like activity, No unsteadiness, No dizziness, No localized weakness, No frequent falls, No headache(s), No lack of coordination, No loss of vision, No memory loss, No numbness, No other visual disturbances, No radiating pain, No restless legs, No sensory deficit, No fainting, No tingling, No tremor(s), No weakness, No other Exam Chest Breast Palpation: No nipple discharge Cardio Heart Sounds: no murmurs Extrem Other: Right fifth digit has a dressing in place. The forearm is soft supple there is no erythema no tenderness volarly distal right upper arm there is a 4.5 cm long somewhat fixed subcutaneous mass no erythema slightly tender. There is some few slightly enlarged right axillary lymph nodes. No supraclavicular or cervical lymph nodes. No similar left axillary or upper arm adenopathy Assessment AND Plan Problems 1. Adenopathy R59.1 Plan 63-year-old female. I believe that her right upper arm fullness represents adenopathy. I believe she also has right axillary adenopathy. She is not demonstrating classic evidence of bacterial infection although she does have the right fifth digit wound which certainly could have led to her current problem. Biopsy of the tissue of the right fifth digit is pending though I am not sure will provide definitive diagnosis. My recommendations to the patient was follows Update her tetanus vaccination and she has been referred to her primary care physician for assistance We will obtain a right upper arm and axillary ultrasound to inspect and measure the suspected adenopathy We will recommend serology checking for potential of cat scratch disease The patient will be initiated azithromycin. Pending the results of the above investigations we will make further recommendations as indicated. If required we could pursue a ultrasound-guided needle core biopsy of the suspected lymph node in the right distal upper arm. Patient's had an opportunity to ask and have questions answered. I very much appreciate the kind opportunity of assisting with her surgical care CC: Dr. Penny Winter and Dr. Anaid Ricardo M.D., F.A.C.S. Orders Orders: Medications New: azithromycin (Zithromax Z-Bib) take 500 mg today (day 1), then 250 mg for 4 days (days 2-5 ) PO 6 tabs 0RF Coding Level of Care Code Exp prob focused,strt fwd Diagnoses Adenopathy R59.1 08/04/18 1756 <Electronically signed by Leon Ricardo MD> Date Leon Ricardo MD Cosigner Signature: Date (if applicable) CC: Anaid Benitez DO; Penny Choi Start: 09-16-2017 End: 09-16-2017 12 lead ECG Comments: See Note; NOTES: [facility] Cardiovascular Services [address] [place] [address] 12 Lead EKG 09/13/17 1833 MR#: [id number] Acct: [id number] Name: DUSTIN TRACY Rep #: [id number] : 1955 62 From: Santiago Jeffrey MD Attending Dr: Status: DEP ER Ordering Dr: Roya Heaton MD Date: 09/13/17 Location: ED Sex: F C Admitted: Test Reason : Blood Pressure : / mmHG Vent. Rate : 075 BPM Atrial Rate : 075 BPM P-R Int : 162 ms QRS Dur : 078 ms QT Int : 386 ms P-R-T Axes : 019 024 044 degrees QTc Int : 431 ms Normal sinus rhythm Normal ECG Confirmed by SANTIAGO JEFFREY MD ([id number]), editor producer JAIME DAVIS ([id number]) on 09/16/2017 3:09:37 PM Referred By: KASEY Confirmed By:SANTIAGO JEFFREY MD 09/16/17 1509 Date Santiago Jeffrey MD CC: Roya Heaton MD; Anaid Benitez DO Signed Hollis Choi Start: 09-13-2017 End: 09-13-2017 Discharge Instruction Comments: See Note; NOTES: [facility] Medical Records Department [address] [place] [address] Discharge Instruction 09/13/172136 MR#: [id number] Acct: [id number] Name: DUSTIN TRACY Rep #: [id number] : 1955 62 From: Roya Heaton MD PCP: Anaid Benitez DO Status: REG ER ED Disposition - Plan for ED Patient: Chief Complaint: Complaint Instructions: ED Abdominal Pain Unkn Cause Prescriptions: Famotidine [Pepcid] 20 mg PO BID #28 tablet Referrals: Anaid Benitez DO [Primary Care Provider] - What to do if you have Problems For any increased pain, shortness of breath, bleeding, nausea or vomiting, chest pain, or any unexpected problems, contact your Primary Care Provider. Call [facility] ([phone]) or report to the closest Emergency Room. Call 911 if necessary. 09/13/172137 <Electronically signed by Roya Heaton MD> Date Roya Heaton MD Cosigner Signature (If Indicated): Date CC: Anaid Benitez DO Hollis Choi Start: 09-13-2017 End: 09-13-2017 Emergency Department Summary Comments: See Note; NOTES: [facility] Medical Records Department [address] [place] [address] Emergency Department Summary 09/13/17 1802 MR#: [id number] Acct: [id number] Name: DUSTIN TRACY Rep #: [id number] : 1955 62 From: Roya eHaton MD PCP: Anaid Benitez DO Status: REG ER - ER Visit Summary Date of Service: 09/13/17 Chief Complaint: Abdominal pain History of Present Illness: The patient is a 62 F presenting with abdominal pain and dysuria. She states this has been ongoing for the past 1-1/2 weeks. She was seen by her primary care physician Dr. Benitez and started on Cipro for a bladder infection. She states the pain seems to be worsening. She has pain after she urinates and urinary frequency. She has chronic low back pain. She has diffuse abdominal pain. History of hysterectomy. Physical Examination: Vitals are stable. Patient is afebrile. Alert no acute distress. HEENT exam is unremarkable. Neck is supple. Lungs are clear and equal bilaterally. Heart is regular rate and rhythm. Abdomen is soft epigastric tenderness, no rebound Extremities are unremarkable. Skin is warm and dry. No focal neurologic deficit. Remainder of exam is unremarkable. Emergency Department Course and Treatment: Patient is given morphine, Zofran IV. CBC, chemistries unremarkable. Liver lipase are normal. Urinalysis is unremarkable. EKG is sinus rate is 75 with no acute ischemic changes. Patient is feeling improved following medications. CT abdomen pelvis shows no acute process, nonvisualization of the appendix. Patient states she has had CT scans in the past that have shown nonvisualization of her appendix. She has no right lower quadrant tenderness on exam. She is advised to watch for worsening signs and symptoms and to return to ED if she worsens. She will follow-up with her primary care physician. She is given a prescription for Pepcid. Disposition: Discharge home Impression: Abdominal pain This note was generated with Orchestrate dictation software. It may contain incorrect words, spelling, and punctuation that were not noted in review of the chart prior to signing ED Disposition - Plan for ED Patient: Chief Complaint: Complaint Referrals: Anaid Benitez DO [Primary Care Provider] - What to do if you have Problems For any increased pain, shortness of breath, bleeding, nausea or vomiting, chest pain, or any unexpected problems, contact your Primary Care Provider. Call [facility] ([phone]) or report to the closest Emergency Room. Call 911 if necessary. 09/13/[id number] <Electronically signed by Roya Heaton MD> Date Roya Heaton MD Cosigner Signature (If Indicated): Date CC: Anaid Ospinaeen Steph Start: 09-13-2017 End: 09-13-2017 Abdomen/Pelvis WITH Contrast Comments: See Note; NOTES: [facility] Imaging Services [address] [place] [id number] Abdomen/Pelvis WITH Contrast MR#: [id number] Acct: [id number] Name: DUSTIN TRACY Rep #: [id number] : 1955 F 62 From: Estela Davis MD PCP: Anaid Benitez DO Status: REG ER Study: Abdomen/Pelvis WITH Contrast Date of Exam: 09/13/17 Exam# [id number] Ordering Dr: Roya Heaton MD STUDY: CT ABDOMEN AND PELVIS WITH CONTRAST REASON FOR EXAM: Female, 62 years old. Abdominal pain and recent urinary bladder infection. Patient has had a hysterectomy. RADIATION DOSAGE (If Supplied By Facility): CTDIvol = ( 8.71 ) mGy, DLP = ( 523.17 ) mGycm TECHNIQUE: Transaxial images were obtained from the dome of the diaphragm to the symphysis pubis with oral contrast. 100 ml of Isovue 300 contrast was administered. Sagittal and coronal images were reconstructed. Individualized dose optimization techniques were used for this CT. COMPARISON: CT of the abdomen and pelvis dated April 11, 2016 FINDINGS: There is a subpleural nodule in the left lower lobe, unchanged since the previous study. This measures approximately 10 mm in greatest dimension. The visualized portions of the heart are within normal limits. Normal liver. Normal gallbladder and extrahepatic biliary system. Normal spleen. Normal pancreas. Normal bilateral adrenal glands. Normal right kidney. Normal left kidney. There is mild prominence of the renal collecting systems Normal visualized stomach. There is no evidence for dilated bowel, ascites or pneumoperitoneum. Small bowel has a grossly normal appearance. Stool is visible throughout the colon with scattered colonic diverticula. There is non-visualization of the appendix. Abdominal aorta is mildly tortuous. Normal inferior vena cava. Normal retroperitoneum. Normal urinary bladder. There is absence of the uterus consistent with a prior hysterectomy. There is a small umbilical hernia containing fat. The bones appear osteopenic. There is degenerative disc disease at L5-S1. CT/Abdomen/Pelvis WITH Contrast IMPRESSION: No CT evidence of acute intra-abdominal disease. Electronically Signed: Estela Davis MD at 20:57 EDT , Service support , CC: Roya Heaton MD; Anaid Benitez DO Ticket Printer: Signed Hollislos Sueropriscilla Start: 04-11-2016 End: 04-12-2016 Abdomen/Pelvis WITH Contrast Comments: See Note; NOTES: [facility] Imaging Services [facility] [place] [address] Verdana 4d Abdomen/Pelvis WITH Contrast MR#: [id number] Acct: [id number] Name: DUSTIN TRACY Rep #: [id number] : 1955 F 60 From: Christian Stockton PCP: Hollis Choi Status: REG CLI Study: Abdomen/Pelvis WITH Contrast Date of Exam: 04/11/16 Exam# [id number] Ordering Dr: Hollis Choi STUDY: CT ABDOMEN AND PELVIS WITH CONTRAST REASON FOR EXAM: Female, 60 years old. Right lower quadrant pain. Nausea, vomiting, diarrhea for one week. RADIATION DOSAGE (If Supplied By Facility): CTDIvol = ( 10.66 ) mGy, DLP = ( 496.8 ) mGycm TECHNIQUE: Transaxial images were obtained from the dome of the diaphragm to the symphysis pubis with oral contrast. 100 ml of Isovue 300 contrast was administered. Sagittal and coronal images were reconstructed. Individualized dose optimization techniques were used for this CT. COMPARISON: None. FINDINGS: The visualized lung bases are unremarkable. The visualized portions of the heart are within normal limits. Normal liver. Normal gallbladder and extrahepatic biliary system. Normal spleen. Normal pancreas. Normal bilateral adrenal glands. Normal right kidney. Normal left kidney. Normal visualized stomach. Normal small intestine. Normal colon. The appendix is probably visualized and appears normal. No secondary signs of acute appendicitis. Normal abdominal aorta. Normal inferior vena cava. Normal retroperitoneum. Normal urinary bladder. The uterus absent compatible with hysterectomy. No adnexal masses seen. Normal abdominal wall. Disc space narrowing with small marginal osteophytes L5-S1. CT/Abdomen/Pelvis WITH Contrast IMPRESSION: No acute finding in the abdomen or pelvis. Although the appendix is not optimally visualized no secondary findings to suggest acute appendicitis. No evidence of bowel obstruction. Electronically Signed: Christian Stockton MD at 8:13 EDT , Service support [phone], CC: Hollis Choi Ticket Printer: Signed Hollis Choi Work Phone: Bacteria identified in Urine by Culture Colonoscopy [facility] Work Phone: Hysterectomy [facility] Work Phone: Total hysterectomy Drew Parra LPN Comment on above: partial- still has o varies Urine culture Vaginal hysterectomy Drew Tapia Comment on above: partial- still has o varies Plan of Treatment Date Care Activity Detail Author Start: 05-15-2023 Elastase, pancreatic (el-1), fecal; quantitative [facility] Start: 11-12-2022 FUV, Provider: Serge Bowie, Status: Pen, Time: 8:15 AM FUV, Provider: Serge Bowie, Status: Pen, Time: 8:15 AM [facility] Work Phone: Start: 09-17-2022 FUV, Provider: Serge Bowie, Status: Pen, Time: 8:00 AM FUV, Provider: Serge Bowie, Status: Pen, Time: 8:00 AM [facility] Work Phone: Start: 06-18-2022 FUV, Provider: Serge Bowie, Status: Pen, Time: 8:45 AM FUV, Provider: Serge Bowie, Status: Pen, Time: 8:45 AM [facility] Work Phone: Start: 12-11-2021 FUV, Provider: Serge Bowie, Status: Pen, Time: 8:15 AM FUV, Provider: Serge Bowie, Status: Pen, Time: 8:15 AM [facility] Work Phone: Start: 09-10-2021 FUV, Provider: Serge Bowie, Status: Pen, Time: 8:15 AM FUV, Provider: Serge Bowie, Status: Pen, Time: 8:15 AM [facility] Work Phone: Start: 06-15-2021 Procedure Education Eprescribed prescriptions (G8553) [facility]; [facility] Work Phone: Start: 06-15-2021 Provider Instructions for Treatment Follow up if no improvement or if symptoms worsen [facility]; [facility] Work Phone: Start: 02-19-2021 FUV, Provider: Serge Bowie, Status: Pen, Time: 8:30 AM FUV, Provider: Serge Bowie, Status: Pen, Time: 8:30 AM [facility] Start: 09-04-2017 Patient Education Urinary Tract Infection in Women *: bladder infection [facility] Work Phone: Start: 09-04-2017 Procedure Education Eprescribed prescriptions (G8553) [facility] Work Phone: Start: 09-04-2017 Provider Instructions for Treatment Follow up if no improvement or if symptoms worsen [facility] Work Phone: Start: 06-25-2016 Culture bacterial quanttative colony count urine URINE SUSAN CULTURE-VINNY COL COUNT (56373) [facility] Work Phone: Comment on above: re-ordered for resubmission to [facility] Start: 06-25-2016 Urnls dip stick/tablet rgnt non-auto w/o micrscp Urinalysis, Office (68668) [facility] Work Phone: Comment on above: ordered for re-submission to [facility] Start: 04-09-2016 Procedure Education Eprescribed prescriptions (G8553) [facility] Work Phone: Start: 04-09-2016 Provider Instructions for Treatment *Abd Pain Red Flags [facility] Work Phone: Start: 04-09-2016 Carcinoembryonic antigen cea CARCINOEMBRYONIC ANTIGEN (CEA) (48855) [facility] Work Phone: Start: 01-06-2015 Procedure Education Eprescribed prescriptions (G8553) [facility] Work Phone: Start: 12-01-2012 Lipid panel LIPID PANEL (01863) [facility] Work Phone: Start: 12-01-2012 aPTT Coag time (Bld) PTT (Activated Partial Thromboplastin Time) (37461) [facility] Work Phone: Start: 12-01-2012 Prothrombin time PT (Prothrobim Time) (51491) [facility]; [facility] Work Phone: Start: 12-01-2012 Prothrombin time (PT) Coag time (PPP) PT (Prothrobim Time) (99679) [facility] Work Phone: Start: 12-01-2012 Thromboplastin time partial plasma/whole blood PTT (Activated Partial Thromboplastin Time) (28814) [facility]; [facility] Work Phone: Start: 12-01-2012 Assay of thyroid stimulating hormone tsh TSH (14241) [facility]; [facility] Work Phone: Start: 12-01-2012 Thyrotropin Qn TSH (55697) [facility] Work Phone: Start: 12-01-2012 Comprehensive metabolic panel METABOLIC PANEL, COMPREHENSIVE (44156) [facility] Work Phone: Start: 12-01-2012 Blood count manual cell count each CBC WITH MANUAL DIFF (67909) [facility] Work Phone: Start: 11-04-2012 Patient Education Neck Strain *: neck pain [facility] Work Phone: Start: 02-20-2010 Urinls dip stick/tablet reagnt non-auto micrscpy URINALYSIS W MICROSCOPY (73231) [facility] Work Phone: Start: 02-20-2010 Culture bacterial quanttative colony count urine URINE SUSAN CULTURE-VINNY COL COUNT (66865) [facility] Work Phone: Start: 09-14-2009 Cytp cerv/vag auto thin layer prep mnl screen Thin prep Pap (24047) [facility] Work Phone: Start: 09-14-2009 Hpv, dna, amp probe HUMAN PAPILVS, NUCLEIC ACID AMPL PROBE (42205) [facility] Work Phone: Start: 09-14-2009 Protein mass conc HUMAN PAPILVS, NUCLEIC ACID AMPL PROBE (93827) [facility] Work Phone: Start: 09-14-2009 Iadna neisseria gonorrhoeae amplified probe tq NEISSERIA (51202) (THIN PREP OBTAINED) [facility] Work Phone: Start: 09-14-2009 Iadna chlamydia trachomatis amplified probe tq CHLAMYDIA (92082) (thin prep obtained) [facility] Work Phone: Start: 09-14-2009 Provider Instructions for Treatment Pap/Pelvic/Bimanual/Rect al/Breast Exam was done. [facility] Work Phone: Fat [Mass/mass] in Stool [facility] Fat.neutral [Presenc e] in Stool [facility] Helicobacter pylori Ag [Presence] in Stool by Immunoassay [facility] Work Phone: [facility] Work Phone: [facility] Work Phone: [facility] Work Phone: [facility] Work Phone: [facility] Work Phone: [facility] Work Phone: [facility] Work Phone: [facility] Payers Date Payer Category Payer Self-pay [id number] 2021 Private Health Insurance [id number] 2019 Medicare [id number] 2017 Private Health Insurance 2012 Unknown [id number] 1955 Unknown [id number] [id number] 1955 Unknown [id number] 2.16.84 [id number] 1955 Unknown [id number] 2.16.8 [id number] 1955 Unknown [id number] 2.16.8 [id number] 1955 Unknown [id number] 2.16. [id number] Unknown Unknown [id number] 2.16.8 [id number] Unknown [id number] 2.16.8 [id number] Social History Date Type Detail Facility No Caffeine Use Never smoker [facility] Work Phone: Tobacco use: Never smoker. [facility] Work Phone: Tobacco use: Tobacco use: [facility] Work Phone: Start: 08-27-2018 End: 08-27-2018 Tobacco smoking status IDIS Unknown if ever smoked [facility] Start: 1955 Sex Assigned At Female W [facility] Start: 08-27-2018 Tobacco smoking status NHIS Never smoked tobacco (finding) [facility] Clinical Notes 05-22-2021 to 11-24-2024 Note Date & Type Note Facility 11-24-2024 Radiology Diagnostic study note [facility] Imaging Services [address] [place], [place] [id number] [employer] Decub and/or Erect MR#: [id number] Acct: [id number] Name: DUSTIN TRACY Rep #: [id number] : 1955 F 69 From: Calos Sauer MD PCP: Dr. Jeromy Tapia MD Status: REG CLI Study:[employer] Decub and/or Erect Date of Exam : 11/23/24 Exam# [id number] Ordering Dr: Oliver Gama FIRE PREVENTION CHIEF FIRE PREVENTION CHIEF-C PROCEDURE: ABD INC DECUB AND/OR ERECT 11/23/2024 REASON FOR EXAM: URETHRITIS TECHNIQUE: Two views, upright and supine COMPARISON: None available FINDINGS: There are 5 ovoid calcific densities mostly at the pelvis and 1 at the distal transverse colon area which each related to areas of overlying fecal material and may be within bowel. No convincing evidence of renal calcification/stone. No gaseous distention of bowel. No evidence of free air. Visualized lung bases appear clear. Mild rightward curvature of the lumbar spine. RAD/Abd Inc Decub and/or Erect IMPRESSION: Findings as above. Reading Location: [id number] CC: Oliver ALFORD FIRE PREVENTION CHIEF-C [place]; Dr. Jeromy Tapia MD ~ Ticket Printer: Signed [facility] 09-17-2022 History of Presen t illness Narrative On a scale of 0 to 10, the patient rates the pain at 10.Pain Location: Neck Pain and bilat sides.Pain Quality: squeezing.Pain Radiation: out to bilat shoulders a little.Sensory/ Motor: denies.Timing/Duration: Constant and > 12 weeks duration.Controlled Substance:I have personally reviewed the [place]AR[place] report for DUSTIN TRACY. I have considered the risks of abuse, dependence, addiction and diversion.Exacerbating Factors: motion and lifting.Alleviating Factors: Cold Therapy, Other: ___.Goals for Pain Management:Oswestry Disability Index evaluation tool completed by patient score 24. [facility] Work Phone: 08-07-2022 History of Presen t illness Narrative On a scale of 0 to 10, the patient rates the pain at 10.Pain Location: Neck Pain.Pain Quality: Cramping, Spasm and Tightness.Timing/Duration: Constant and > 12 weeks duration.Goals for Pain Management:KEITH SCORE 25.Patient Education:Time out was performed in pts room before bilat cervical Trigger point injection bárbara well no complaints or questions. [facility] Work Phone: 08-06-2022 History of Presen t illness Narrative On a scale of 0 to 10, the patient rates the pain at 10.Pain Location: Neck Pain.Pain Quality: Cramping, Spasm and Tightness.Timing/Duration: Constant and > 12 weeks duration.Goals for Pain Management:KEITH SCORE 25.Patient Education:Time out was performed in pts room before bilat cervical Trigger point injection bárbara well no complaints or questions. [facility] [employer] Work Phone: 06-18-2022 History of Presen t illness Narrative On a scale of 0 to 10, the patient rates the pain at 10.Pain Location: Neck Pain.Pain Quality: Burning, Shooting and occasional shooting pain.Pain Radiation: mary shoulders.Timing/Duration: Constant and > 12 weeks duration. [facility] [employer] Work Phone: 09-10-2021 History of Presen t illness Narrative On a scale of 0 to 10, the patient rates the pain at 6.Pain Location: Neck Pain.Pain Quality: Aching and Dull.Pain Radiation: mary shoulders.Timing/Duration: Constant and > 12 weeks duration.Goals for Pain Management:ORT = 0.Patient Education:Time out was performed in patient room for mary neck and shoulder injections 0856. [facility] Work Phone: 05-22-2021 History of Presen t illness Narrative On a scale of 0 to 10, the patient rates the pain at 8.Pain Location: Neck Pain and TRAPS.Pain Quality: Cramping and Tightness.Timing/Duration: Intermittent.Exacerbating Factors: lifting, repetitive motion, sitting and ADL.Alleviating Factors: Exercise, Medications, Moist Heat, Repositioning.24 Hour Behavior:Symptoms are the same in the am.Symptoms are the same as the day progresses.Symptoms are the same in the pm.Symptoms are the same when lying down. [facility] [employer] Work Phone: Evaluation note No assessment inform ation available [facility] Work Phone: History of Present illness Narrative On a scale of 0 to 10, the patient rates the pain at 6.Pain Location: Neck Pain.Pain Quality: Aching, Spasm, Tenderness and SPASM WITH LIFTING.Timing/Duration: Constant.Exacerbating Factors: motion, lifting and repetitive motion.Alleviating Factors: Repositioning.24 Hour Behavior:Symptoms are the same in the am.Symptoms are the same as the day progresses.Symptoms are the same in the pm.Symptoms are the same when lying down.Patient Education:TIME OUT DONE FOR BILATERAL TIP. [facility] Work Phone: History of Present illness Narrative On a scale of 0 to 10, the patient rates the pain at 6.Pain Location: Neck Pain.Pain Quality: Aching, Spasm, Tenderness and SPASM WITH LIFTING.Timing/Duration: Constant.Exacerbating Factors: motion, lifting and repetitive motion.Alleviating Factors: Repositioning.24 Hour Behavior:Symptoms are the same in the am.Symptoms are the same as the day progresses.Symptoms are the same in the pm.Symptoms are the same when lying down.Patient Education:TIME OUT DONE FOR BILATERAL TIP. [facility] [employer] Phone: History of Present illness Narrative On a scale of 0 to 10, the patient rates the pain at 10.Pain Location: Neck Pain and bilat sides.Pain Quality: Burning, Cramping and gripping.Timing/Duration: Constant and > 12 weeks duration.Exacerbating Factors: motion and lifting.Alleviating Factors: None.Goals for Pain Management:Oswestry Disability Index evaluation tool completed by patient 29.Patient Education:Time out was performed in pts room before botox injection bárbara well no complaints or questions. [facility] [employer] Work Phone: Instructions Name Patient Instructions Indication:BMI less than 19,adult Start:15-Jun-20 Instruction Type:Provider Instructions for Treatment How to Access Health Information Online using Patient Portal and 3rd [employer] Apps Indication:BMI less than 19,adult Start:15-Jun-20 Instruction Type:Patient Education How to access health information online Indication:BMI less than 19,adult Start: 8 Instruction Type:Patient Education How to access health information online - Detail Indication:BMI less than 19,adult Start: 8 Instruction Type:Patient Education Patient Instructions Indication:Abdominal pain Start: Instruction Type:Provider Instructions for Treatment How to access health information online Indication:Abdominal discomfort Start:09-Apr-20 Instruction Type:Patient Education How to access health information online - Detail Indication:Abdominal discomfort Start:09-Apr-20 Instruction Type:Patient Education Patient Instructions Indication:Abdominal discomfort Start:09-Apr-20 Instruction Type:Provider Instructions for Treatment How to access health information online Indication:Stress reaction Start:07-Jan-20 Instruction Type:Patient Education How to access health information online - Detail Indication:Stress reaction Start:07-Jan-20 Instruction Type:Patient Education Patient Instructions Indication:Stress reaction Start:07-Jan-20 Instruction Type:Provider Instructions for Treatment Patient Instructions Indication:Cervical Radiculopathy Start: Instruction Type:Provider Instructions for Treatment [facility]; [facility] Work Phone: Instructions* Name Dates Details Patient Instructions Indication:BMI less than 19,adult Start:15-Jun-2021 Instruction Type:Provider Instructions for Treatment How to Access Health Informa tion Online using Patient Portal and [employer] Apps Indication:BMI less than 19,adult Start:15-Jun-2021 Instruction Type:Patient Education How to access health informa tion online Indication:BMI less than 19,adult Start:04-Sep-2017 Instruction Type:Patient Education How to access health informa tion online - Detail Indication:BMI less than 19,adult Start:04-Sep-2017 Instruction Type:Patient Education Patient Instructions Indication:Abdominal pain Start:04-Sep-2017 Instruction Type:Provider Instructions for Treatment How to access health informa tion online Indication:Abdominal discomfort Start:09-Apr-2016 Instruction Type:Patient Education How to access health informa tion online - Detail Indication:Abdominal discomfort Start:09-Apr-2016 Instruction Type:Patient Education Patient Instructions Indication:Abdominal discomfort Start:09-Apr-2016 Instruction Type:Provider Instructions for Treatment How to access health informa tion online Indication:Stress reaction Start:06-Jan-2015 Instruction Type:Patient Education How to access health informa tion online - Detail Indication:Stress reaction Start:06-Jan-2015 Instruction Type:Patient Education Patient Instructions Indication:Stress reaction Start:06-Jan-2015 Instruction Type:Provider Instructions for Treatment Patient Instructions Indication:Cervical Radiculopathy Start:04-Nov-2012 Instruction Type:Provider Instructions for Treatment [facility]; [facility] Work Phone: reason for referral (narrative)No reason for [facility] Work [facility]: Instructions Name Dates Details BMI less than 19,adult : How to access health information online Indication:BMI less than 19,adult BMI less than 19,adult : How to access health information online - Detail Indication:BMI less than 19,adult Abdominal pain : Patient Ins tructions Indication:Abdominal pain Abdominal discomfort : How t o access health information online Indication:Abdominal discomfort Abdominal discomfort : How t o access health information online - Detail Indication:Abdominal discomfort Abdominal discomfort : Patie nt Instructions Indication:Abdominal discomfort Stress reaction : How to acc ess health information online Indication:Stress reaction Stress reaction : How to acc ess health information online - Detail Indication:Stress reaction Stress reaction : Patient In structions Indication:Stress reaction Cervical Radiculopathy : Pat ient Instructions Indication:Cervical Radiculopathy Name Dates Details How to access health informa tion online Indication:BMI less than 19,adult Start:04-Sep-2017 Instruction Type:Patient Education How to access health informa tion online - Detail Indication:BMI less than 19,adult Start:04-Sep-2017 Instruction Type:Patient Education Patient Instructions Indication:Abdominal pain Start:04-Sep-2017 Instruction Type:Provider Instructions for Treatment How to access health informa tion online Indication:Abdominal discomfort Start:09-Apr-2016 Instruction Type:Patient Education How to access health informa tion online - Detail Indication:Abdominal discomfort Start:09-Apr-2016 Instruction Type:Patient Education Patient Instructions Indication:Abdominal discomfort Start:09-Apr-2016 Instruction Type:Provider Instructions for Treatment How to access health informa tion online Indication:Stress reaction Start:06-Jan-2015 Instruction Type:Patient Education How to access health informa tion online - Detail Indication:Stress reaction Start:06-Jan-2015 Instruction Type:Patient Education Patient Instructions Indication:Stress reaction Start:06-Jan-2015 Instruction Type:Provider Instructions for Treatment Patient Instructions Indication:Cervical Radiculopathy Start:04-Nov-2012 Instruction Type:Provider Instructions for Treatment Name Dates Details BMI less than 19,adult : How to access health information online Indication:BMI less than 19,adult BMI less than 19,adult : How to access health information online - Detail Indication:BMI less than 19,adult Abdominal pain : Patient Ins tructions Indication:Abdominal pain Abdominal discomfort : How t o access health information online Indication:Abdominal discomfort Abdominal discomfort : How t o access health information online - Detail Indication:Abdominal discomfort Abdominal discomfort : Patie nt Instructions Indication:Abdominal discomfort Stress reaction : How to acc ess health information online Indication:Stress reaction Stress reaction : How to [place] information online - Detail Indication:Stress reaction Stress reaction : Patient In structions Indication:Stress reaction Cervical Radiculopathy : Pat ient Instructions Indication:Cervical Radiculopathy Summary Purpose Family History No Family History Records FoundNo Family History Records FoundNo Family History Records FoundNo Family History Records FoundNo Family History Records FoundNo Family History Records Found Advance Directives No Advanced Directives Records Found Advance Directive Response Recorded Date/ Time Living Will No August 10, 019 5:48pm Power of Neurology Stroke Physician No August 10, 2018 5:48pm Advance Directive Response Recorded Date/ Time Living Will No August 10 019 4:48pm Power of Neurology Stroke Physician No August 10, 2018 4:48pm Chief Complaint ONGOING NECK DISCOMFORT, ACHING,TENDER, SHE DOES NOT LIFT ANYTHING HER NECK WILL SPASM, INJECTIONS HELP, SCORE 6/10* ONGOING NECK DISCOMFORT, ACHING,TENDER, SHE DOES NOT LIFT ANYTHING HER NECK WILL SPASM, INJECTIONS HELP, SCORE 6/10 * This is a 65 year old female here for a follow-up appointment for chief complaint of bilateral neckand shoulder blade pain. She last underwent a set of trigger point injections 3 months ago. She hadover 60% relief. She would like to have another set today. She denies new neurologic symptoms or issues with bladder or bowel control. * The patient's past medical, social, and family history along with medications and allergies are available and were reviewed. * ONGOING NECK PAIN, REQUESTING TRIGGER POINT INJECTIONS, SHE HAS ACHING,TIGHT,CRAMPING MUSCLES AROUND HER NECK AND TRAPS, SHE REPOSITIONS FOR COMFORT, HEAT,TYLENOL PRN, INJECTIONS GIVE HER RELIEF, SCORE 8/10 * This is a 66 year old female here for a follow-up appointment for chief complaint of bilateral neckand shoulder blade pain. She last underwent a set of trigger point injections 3 months ago. She hadover 60% relief. She would like to have another set today. She denies new neurologic symptoms or issues with bladder or bowel control. * The patient's past medical, social, and family history along with medications and allergies are available and were reviewed. * FUV for mary neck and shoulder pain, 6/10 today. Would like injections today. * This is a 66 year old female here for a follow-up appointment for chief complaint of bilateral neckand shoulder blade pain. She last underwent a set of trigger point injections 4 months ago. She hadover 60% relief. She would like to have another set today. She denies new neurologic symptoms or issues with bladder or bowel control. * The patient's past medical, social, and family history along with medications and allergies are available and were reviewed. * FUV for mary neck pain with radiation to mary shoulders; 04/08 today. Patient would like injections today. * This is a 67 year old female here for a follow-up appointment for chief complaint of bilateral neckand shoulder blade pain. She last underwent a set of trigger point injections 9 months ago. She hadover 60% pain relief and functional improvement that lasted for over 3 months. She would like to have another set today. She has maintained her home exercises and stretching for her neck over the past 9 months. She denies new neurologic symptoms or issues with bladder or bowel control. * The patient's past medical, social, and family history along with medications and allergies are available and were reviewed. * FUV BILATERAL C3-C5 MEDIAL BRANCH BLOCK. PATIENT STATES THAT HER NECK WAS NUMB DURING THE FOUR HOURS POST OP BUT THE PAIN WAS STILL THE SAME- 10/10. SHE STATES HER PAIN IS HARD TO DESCRIBE BUT STATESIT IS A CRAMP, BURNING AND A MUSCLE SPASM. PATIENT REPORTS THAT SHE TRIED TO RECREATE HER PAIN BY DOING DIFFERENT ACTIVITIES LIKE CLEANING, MOVING AROUND AND KEEPING BUSY AROUND THE HOUSE. * PAIN SCORE TODAY 10/10. MMA/ORT REVIEWED. DUE TO ELEVATED BLOOD PRESSURE AT TODAY'S VISIT AND LAST OFFICE VISIT, I RECOMMENDED THAT SHE SCHEDULE AN OFFICE VISIT WITH HER PCP TO DISCUSS. SHE STATES THAT HER PCP DID NOT SEEM CONCERNED ABOUT IT AT HER LAST VISIT WITH THEM BUT THAT SHE HAS NOT SEEN THEM IN A WHILE; THIS NURSE AGAIN RECOMMENDED THAT SHE SCHEDULE AN APPOINTMENT TO DISCUSS PATIENT'S ELEVATED BLOOD PRESSURE. * FUV BILATERAL C3-C5 MEDIAL BRANCH BLOCK. PATIENT STATES THAT HER NECK WAS NUMB DURING THE FOUR HOURS POST OP BUT THE PAIN WAS STILL THE SAME- 10/10. SHE STATES HER PAIN IS HARD TO DESCRIBE BUT STATESIT IS A CRAMP, BURNING AND A MUSCLE SPASM. PATIENT REPORTS THAT SHE TRIED TO RECREATE HER PAIN BY DOING DIFFERENT ACTIVITIES LIKE CLEANING, MOVING AROUND AND KEEPING BUSY AROUND THE HOUSE. * PAIN SCORE TODAY 10/10. MMA/ORT REVIEWED. DUE TO ELEVATED BLOOD PRESSURE AT TODAY'S VISIT AND LAST OFFICE VISIT, I RECOMMENDED THAT SHE SCHEDULE AN OFFICE VISIT WITH HER PCP TO DISCUSS. SHE STATES THAT HER PCP DID NOT SEEM CONCERNED ABOUT IT AT HER LAST VISIT WITH THEM BUT THAT SHE HAS NOT SEEN THEM IN A WHILE; THIS NURSE AGAIN RECOMMENDED THAT SHE SCHEDULE AN APPOINTMENT TO DISCUSS PATIENT'S ELEVATED BLOOD PRESSURE. * This is a 67-year-old female here for a follow-up appointment for chief complaint of bilateral neckpain. At her last visit she underwent a set of bilateral diagnostic cervical medial branch blocks from C3-C5. She reports that the symptoms have remained persistent. The pain is present in the neck an d will radiate into the proximal shoulders but not down the arms. She has associated spasms in the muscles as well. The right side is a little bit worse than the left. She has not had sufficient benefit with physical therapy. She has also tried muscle relaxants but was unable to tolerate them due to sedation. She would like to move forward with Botox injections. She has gotten 50 to 60% relief with trigger point injections which helped her function but the pain will still limit her so she wouldlike to explore Botox as an option. She denies new neurologic symptoms or issues with bladder or bowel control. * The patient's past medical, social, and family history along with medications and allergies are available and were reviewed. * Here for Botox 100 units today reports bilat side of neck describes as cramping, burning, gripping like pain rates 10/10. * This is a 67-year-old female here for chief complaint of neck pain. She is here today for Botox injections. She denies new neurologic symptoms or issues with bladder or bowel control. She reports thepain is severe and limits her function and sleep. * The patient's past medical, social, and family history along with medications and allergies are available and were reviewed. * FUV BOTOX for migraines on 08-12-22 reports she does not have any relief and she rolled her head to her chest she felt like she was going to get sick and pass out. Today she reports having the same pain in bilat sides of her neck radiating out to her bilat shoulders rates 10/10 describe as squeezinglike pain. She has been using her HEP stretching and ice intermittently she takes Advil but has backed off a little as it is not helping. * This is a 67-year-old female here for a follow-up appointment for chief complaint of neck, shoulder, and arm pain. At her last visit she underwent a set of Botox injections. She has not noticed any significant relief. She actually thinks she felt worse the first couple of weeks afterward. She is now back to baseline. She reports the pain will start in the neck and radiate down into both shouldersand both shoulder blades. The right side might be a bit worse. She has tried Advil which has not helped. She denies additional neurologic symptoms or issues with bladder or bowel control. * The patient's past medical, social, and family history along with medications and allergies are available and were reviewed. Chief Complaint and Reason for Visit Chief Complaint SCREENING Chief Complaint RUQ PAIN STOOL DROP OFF ONLY Chief Complaint Admit Date ABD EORDER November 23, 2024 9:55a m Additional Source Comments INFORMATION SOURCE (unrecogn ized section and content) DATE CREATED AUTHOR 09/22/2018 [facility] DATE CREATED AUTHOR AUTHOR'S ORGANIZ ATION 09/26/2018 [facility] DATE CREATED AUTHOR AUTHOR'S ORGANIZ ATION 06/11/2022 [facility] DATE CREATED AUTHOR AUTHOR'S ORGANIZ ATION 09/17/2022 [employer] DATE CREATED AUTHOR AUTHOR'S ORGANIZ ATION 04/21/2023 [facility] DATE CREATED AUTHOR AUTHOR'S ORGANIZ ATION 12/01/2024 [facility] Goals (unrecognized section and content) Goals may be documented in a n alternate sectionGoals may be documented in an alternate sectionGoals may be documented in an alternate sectionGoals may be documented in an alternate sectionGoals may be documented in an alternate sectionGoals may be documented in an alternate sectionGoals may be documented in an alternate section Care Teams (unrecognized sec tion and content) Team Status: Active Member Role Status Dates Dr. Anaid Benitez DO Family Provider Active Dr. Anaid Benitez , DO Primary Care Provider Active Team Status: Inactive Member Role Status Dates Dr. Anaid Benitez , DO Primary Care Provider Active MARCO Alvarez Attending Provider, Referr ing Provider Active Team Status: Active Member Role Status Dates Dr. Anaid Benitez DO Family Provider Active Dr. Jeromy Tapia MD Primary Care Provider Active Team Status: Active Member Role Status Dates Dr. Jeromy Tapia MD Primary Care Provider, Attending Jason jackson Active Team Status: Inactive Member Role Status Dates Dr. Jeromy Tapia MD Primary Care Provide r, Attending Provider, Referring Provider Active Team Status: Inactive Member Role Status Dates Dr. Jeromy Tapia MD Primary Care Provider, Attending P renetta Active Team Status: Inactive Member Role Status Dates Dr. Jeromy Tapia MD Primary Care Provider Active Start: November 23, 2024 End: November 23, 2024 Oliver Gama FIRE PREVENTION CHIEF, FIRE PREVENTION CHIEF-C Attending Provider Active Start: November 23, 2024 End: November 23, 2024 Oliver Gama NP FIRE PREVENTION CHIEF-C Referring Provider Active Start: November 23, 2024 End: November 23, 2024 FOR RECORDS PERTAINING TO PATIENTS WHO ARE OR HAVE BEEN ENROLLED IN A CHEMICAL DEPENDENCY/SUBSTANCEABUSE PROGRAM, SOME INFORMATION MAY BE OMITTED. This clinical summary was aggregated from multiple sources. Caution should be exercised in using it in the provision of clinical care. This summary normalizes information from multiple sources, and as a consequence, information in this document may materially change the coding, format and clinical context of patient data. In addition, data may be omitted in some cases. CLINICAL DECISIONS SHOULD BE BASED ON THE PRIMARY CLINICAL RECORDS. [employer] [facility]. provides no warranty or guarantee of the accuracy or completeness of information in this document.
== END | disposition home or self-care (01) ==
LOC: LABSPEC 05-11 11:49
PROVIDERS: PCP Family Medicine
DX: N39.0 Urinary tract infection, site not specified (principal)
CPT/HCPCS: 87086; 87088

== ENCOUNTER → 2024-11-23 | Outpatient (CLI) | payer MEDICARE, OTHER, SELFPAY ==
--- NOTE | 2024-11-23 10:04 | RAD_ITS ---
PROCEDURE: ABD INC DECUB AND/OR ERECT 11/23/2024 REASON FOR EXAM: URETHRITIS TECHNIQUE: Two views, upright and supine COMPARISON: None available FINDINGS: There are 5 ovoid calcific densities mostly at the pelvis and 1 at the distal transverse colon area which each related to areas of overlying fecal material and may be within bowel. No convincing evidence of renal calcification/stone. No gaseous distention of bowel. No evidence of free air. Visualized lung bases appear clear. Mild rightward curvature of the lumbar spine. RAD/Abd Inc Decub and/or Erect IMPRESSION: Findings as above. Reading Location: [id number]
== END | disposition home or self-care (01) ==
LOC: LABSPEC 09:56 → MTRAD 09:59
PROVIDERS: PCP Family Medicine
DX: R35.0 Frequency of micturition (principal); N34.2 Other urethritis
CPT/HCPCS: 74019; 87086; 87088

== ENCOUNTER → 2025-06-07 | Outpatient (CLI) | payer MEDICARE, OTHER, SELFPAY ==
[2025-06-07 12:40] LABS: Color, Urine Yellow (Yellow); Glucose, Dipstick Normal (Normal); Ketone-Dipstick Negative (Negative); Leukocyte Esterase-Dipstick 500 /ul (Negative); Nitrite-Dipstick Negative (Negative); Occult Blood-Urine 250 /ul (Negative); Protein-Dipstick 30 mg/dl (Negative); Specific Gravity, Urine 1.010 (1.002-1.030); Urine Bilirubin Dipstick Negative (Negative)
== END | disposition home or self-care (01) ==
LOC: LABSPEC 10:30
PROVIDERS: PCP Family Medicine; Visit Provider Nurse Practitioner Family
DX: R35.0 Frequency of micturition (principal)
CPT/HCPCS: 81002